=== PATIENT | male | born 1955 | race Caucasian/White ===

== ENCOUNTER 2018-04-29 15:49 | Inpatient (IN) ==
[2018-04-29 18:02] LABS: Baso % (Auto) 0.7 % (0.0-2.0); Eos # (Auto) 0.2 th/mm3 (0.0-0.4); Eos % (Auto) 2.8 % (0.0-4.0); Hematocrit 39.9 % (39.0-51.0); Lymph # (Auto) 1.9 th/mm3 (1.0-4.8); Lymph % (Auto) 29.1 % (9.0-44.0); Mean Corpuscular Hemoglobin 32.2 pg (27.0-34.0); Mean Corpuscular Volume 91.8 fL (80.0-100.0); Mean Platelet Volume 10.6 fL (7.0-11.0); Mono # (Auto) 0.7 th/mm3 (0.0-0.9); Mono % (Auto) 10.1 % (0.0-8.0); Neut # (Auto) 3.8 th/mm3 (1.8-7.7); Neut % (Auto) 57.3 % (16.0-70.0); Platelet Count 196 th/mm3 (150-450); Red Blood Count 4.35 mil/mm3 (4.50-5.90); Red Cell Distribution Width 15.6 % (11.6-17.2); White Blood Count 6.6 th/mm3 (4.0-11.0)
[2018-04-29 18:25] LABS: Alanine Aminotransferase 64 U/L (12-78); Albumin 4.1 g/dL (3.4-5.0); Anion Gap 7 meq/L (5-15); Aspartate Aminotransferase 81 U/L (15-37); Blood Urea Nitrogen 10 mg/dL (7-18); Calcium 8.1 mg/dL (8.5-10.1); Carbon Dioxide 30.8 meq/L (21.0-32.0); Chloride 97 meq/L (98-107); Glomerular Filtration Rate 49 mL/min (>89); Glucose,Random 93 mg/dL (74-106); Potassium 3.6 meq/L (3.5-5.1); Sodium 135 meq/L (136-145)
[2018-04-29 18:48] LABS: Alkaline Phosphatase 84 U/L (45-117)
[2018-04-29] MEDS ORDERED: Dexamethasone Inj 20 MG/5 ML Vial IV.PUSH ONE (22:24)
--- NOTE | 2018-04-29 22:28 | ED ---
HPI General Chief complaint: Psychiatric Symptoms Stated complaint: Psych Eval-Vol Time Seen by Provider: 04/29/18 22:06 History of Present Illness HPI narrative: Patient is a 63-year-old male presents emergency department with his girlfriend for of audio and visual shreya hallucinations. This been present for the past 4-6 weeks. Patient states he has always had an anxiety problem and states that when his girlfriend left for 2 weeks to deal with the of a family member and then extended that to 6 weeks he got a lot worse. His girlfriend states that she called him about a week ago and noted that he was "off" she flew back to find him in a very bizarre state and actually called 911 and they were unable to convince him to come to the hospital and instead he came of his own volition tonight. He denies any suicidal homicidal ideation. Is a very bizarre affect. He does endorse auditory and visual hallucinations. On further review of systems the patient endorses a 95 pound weight gain over the past 6 months. He states his family has a history of thyroid problems as well. Symptoms have been gradually worsening over the past 4-6 weeks. Onset (ago): week(s) Severity: moderate Pain Consistency: constant Relieving factors: none Exacerbating factors: none Associated symptoms: denies other symptoms Treatments prior to arrival: none Related Data Home Medications Medication Instructions Recorded Confirmed No Known Home Medications 04/29/18 04/29/18 Allergies Allergy/AdvReac Type Severity Reaction Status Date / Time No Known Allergies Allergy Uncoded 10/11/13 11:17 Review of Systems Except as stated in HPI: all other systems reviewed are negative [facility] Medical History Medical History Anxiety (Acute) CAD (coronary artery disease) (Acute) Deafness in right ear (Acute) Hypertension (Acute) Social History Social History Substance History: Active Abuse Smoking Status: Current every day smoker Tobacco Type: Cigarettes How Often Do You Have a Drink Containing Alcohol: Never Recent Travel in [facility] within the Last 8 Weeks: No Recent Out of Country Travel within the Last 8 Weeks: No Substance Abuse Detail Marijuana: Reason for Use: Socialization Immunization History Tetanus Immunization: Unsure Hx Influenza Vaccine This Season: No Exam Narrative Exam Narrative: GENERAL: Well-developed morbidly obese male, no obvious distress peer SKIN: Focused skin assessment warm/dry. HEAD: Atraumatic. Normocephalic. EYES: Pupils equal and round. No scleral icterus. No injection or drainage. ENT: No nasal bleeding or discharge. Mucous membranes pink and moist. NECK: Trachea midline. No JVD. CARDIOVASCULAR: Regular rate and rhythm. No murmur appreciated. RESPIRATORY: No accessory muscle use. Clear to auscultation. Breath sounds equal bilaterally. GASTROINTESTINAL: Abdomen soft, non-tender, nondistended. Hepatic and splenic margins not palpable. MUSCULOSKELETAL: No obvious deformities. No clubbing. No cyanosis. No edema. NEUROLOGICAL: Awake and alert. No obvious cranial nerve deficits. Motor grossly within normal limits. Mild slurred speech PSYCHIATRIC: Very bizarre affect, denies suicidal homicidal ideation, anxious mood. Course Initial Documented Vital Signs Temperature 98.1 F 04/29/18 16:00 Pulse Rate 52 L 04/29/18 16:00 Respiratory Rate 20 04/29/18 16:00 Blood Pressure 131/80 04/29/18 16:00 Pulse Oximetry 95 04/29/18 16:00 Last Documented Vital Signs Temperature 98.1 F 04/29/18 16:00 Pulse Rate 70 04/29/18 22:39 Respiratory Rate 18 04/29/18 22:39 Blood Pressure 161/96 H 04/29/18 22:39 Pulse Oximetry 96 04/29/18 22:39 Medical Decision Making [facility] Narrative Medical decision making narrative: Patient room to the emergency department, screening labs were sent from triage as part of psychiatric routine protocol medicine. Revealed a TSH greater than 100. 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 Free T3 and free T4 were drawn and sent, will be started on Decadron as well as IV thyroid medicine. Will be admitted to medicine. Final diagnosis myxedema Differential Diagnosis Differential Diagnosis: Schizophrenia, bipolar, myxedema coma, electrolyte abnormality, hyponatremia, Abby's disorder, pituitary adenoma Lab Data Result diagrams: 04/29/18 16:15 04/29/18 16:15 Lab Results 04/29/18 04/29/18 04/29/18 Range/Units 16:15 16:15 22:30 WBC 6.6 (4.0-11.0) th/mm3 RBC 4.35 L (4.50-5.90) mil/mm3 Hgb 14.0 (13.0-17.0) gm/dL Hct 39.9 (39.0-51.0) % MCV 91.8 (80.0-100.0) fL MCH 32.2 (27.0-34.0) pg MCHC 35.0 (32.0-36.0) % RDW 15.6 (11.6-17.2) % Plt Count 196 (150-450) th/mm3 MPV 10.6 (7.0-11.0) fL Neut % (Auto) 57.3 (16.0-70.0) % Lymph % (Auto) 29.1 (9.0-44.0) % Union % (Auto) 10.1 H (0.0-8.0) % Eos % (Auto) 2.8 (0.0-4.0) % Baso % (Auto) 0.7 (0.0-2.0) % Neut # (Auto) 3.8 (1.8-7.7) th/mm3 Lymph # (Auto) 1.9 (1.0-4.8) th/mm3 Union # (Auto) 0.7 (0.0-0.9) th/mm3 Eos # (Auto) 0.2 (0.0-0.4) th/mm3 Baso # (Auto) 0.0 (0.0-0.2) th/mm3 WBC Differential . Differential Comment Auto diff final Sodium 135 L (136-145) meq/L Potassium 3.6 (3.5-5.1) meq/L Chloride 97 L (98-107) meq/L Carbon Dioxide 30.8 (21.0-32.0) meq/L Anion Gap 7 (5-15) meq/L BUN 10 (7-18) mg/dL Creatinine 1.46 H (0.60-1.30) mg/dL Estimated GFR 49 L (>89) mL/min Random Glucose 93 (74-106) mg/dL Calcium 8.1 L (8.5-10.1) mg/dL Total Bilirubin 0.3 (0.2-1.0) mg/dL AST 81 H (15-37) U/L ALT 64 (12-78) U/L Alkaline Phosphatase 84 (45-117) U/L Total Protein 7.0 (6.4-8.2) g/dL Albumin 4.1 (3.4-5.0) g/dL TSH Greater than 100.000 H (0.358-3.740) uIU/mL Free T4 0.22 L (0.76-1.46) ng/dL Free T3 1.37 L (2.18-3.98) pg/mL Serum Alcohol Less than 3 (0-5) mg/dL Discharge Plan Discharge Disposition Patient Disposition: 30 Still Patient Discharge Details Diagnosis: Myxedema Physicians Team ED Provider: Humberto Pineda Primary Care Provider: Primary Care Adenike Barrios Attending Provider: Cinthya Royal Discharge Interventions Interventions: Vital Signs Last Done: 04/29/18 22:39 Status ED Status: Admitted Patient
[2018-04-29 23:44] LABS: Free T4 (Free Thyroxine) 0.22 ng/dL (0.76-1.46); Triiodothyronine (T3) Free 1.37 pg/mL (2.18-3.98)
[2018-04-30] MEDS ORDERED: Bisacodyl 10 MG Supp RECTAL PRN (01:44)
[2018-04-30] MEDS ORDERED: Acetaminophen 325 MG Tablet PO PRN (01:44)
--- NOTE | 2018-04-30 01:58 | P.HP ---
History of Present Illness Service: [facility] Primary Care Physician: No Primary Care Physician History of Present Illness: 63-year-old male presents to the emergency department for evaluation of audiovisual hallucinations. The hallucinations have been present for approximately 4-6 weeks. The patient's girlfriend reports that he has been "off " for the past couple of weeks and she found him in a very bizarre state when returning from a trip. 911 was called at that time however the patient refused to come for evaluation. Tonight, the patient comes of his own volition for further evaluation. He denies any pain. No chest pain or shortness of breath. No abdominal pain. No nausea/vomiting/diarrhea. Endorses a 95 pound weight gain over the past 6 months. No fevers/chills. No lateralizing signs/symptoms. Inpatient Certification: I certify that the inpatient services were ordered in accordance with Medicare regulations governing the order. This includes certification that hospital inpatient services are reasonable and necessary and in the case of services not specified as inpatient-only under 42 CFR 419.22(n), that they are appropriately provided as inpatient services in accordance to with the 2-midnight benchmark under 43 CFR 412.3(e) Estimated Total Length of Stay (Days): 3 Plans for Post Hospital Care: Home Review of Systems All other systems reviewed negative except as stated in HPI [facility] - History History Provided By: Patient, Significant Other - Medical History Medical History: Medical History (Last Updated 04/30/18 @ 01:52 by Cinthya Royal MD) Anxiety CAD (coronary artery disease) Deafness in right ear Hypertension Surgical history unknown - Family History Family History: Family History (Last Updated 04/30/18 @ 01:53 by Cinthya Royal MD) Other Family history unknown - Tobacco History Tobacco Use In Past 30 Days: Yes Smoking Status: Current every day smoker Tobacco Type: Cigarettes - Alcohol History How Often Do You Have a Drink Containing Alcohol: Never - Substance Use History Substance History: Active Abuse - Substance Use Type Marijuana Reason for Use: Socialization - Travel History Recent Travel in the [place] Within the Last 8 Weeks: No Recent Travel Out of the Country Within the Last 8 Weeks: No - Immunization History Tetanus Immunization: Unsure Hx Influenza Vaccine This Season: No Medications and Allergies Active Medications: Active Medications Acetaminophen (Tylenol) 650 mg PO Q4H PRN PRN Reason: Temp > 100.4 Al Hydroxide/Mg Hydroxide (Milk Of Magnesia Liq) 30 ml PO Q12H PRN PRN Reason: Mild Constipation Bisacodyl (Dulcolax Supp) 10 mg RECTAL DAILY PRN PRN Reason: SEVERE CONSITIPATION Heparin Sodium (Porcine) (Heparin Inj) 5,000 units SQ Q12H CHARLY Hydrocortisone Sodium Succinate (Solucortef Inj) 100 mg IV.PUSH Q6HR CHARLY Lactulose (Lactulose Liq) 30 ml PO DAILY PRN PRN Reason: SEVERE CONSITIPATION Levothyroxine Sodium (Synthroid Inj) 100 mcg IV.PUSH DAILY@0600 CHARLY Liothyronine Sodium (Cytomel) 25 mcg PO DAILY CHARLY Ondansetron HCl (Zofran Inj) 4 mg IV.PUSH Q6H PRN PRN Reason: NAUSEA OR VOMITING Senna/Docusate Sodium (Denisha-Colace) 1 tab PO BID CHARLY Sennosides (Senokot) 17.2 mg PO Q12H PRN PRN Reason: Moderate Constipation Temazepam (Restoril) 15 mg PO HS PRN PRN Reason: INSOMNIA Allergies Allergy/AdvReac Type Severity Reaction Status Date / Time No Known Allergies Allergy Uncoded 10/11/13 11:17 Home Medications Medication Instructions Recorded Confirmed Type No Known Home Medications 04/29/18 04/29/18 History Exam Vital signs: Vital Signs 04/29/18 16:00 04/29/18 22:39 Temperature 98.1 F Pulse Rate 52 L 70 Respiratory Rate 20 18 Blood Pressure 131/80 161/96 H Pulse Oximetry 95 96 Intake & Output 04/29/18 04/29/18 04/30/18 06:59 18:59 06:59 Weight 134.717 kg Narrative: Gen.: No acute distress Head: Normocephalic. Atraumatic. EENT: Pupils equal round and reactive to light. Nose without drainage. Airway intact. Throat without injection. Cardiovascular: Regular rate and rhythm. No murmurs, rubs or gallops. Respiratory: Lungs clear to auscultation bilaterally. No wheezes or rhonchi. Abdomen: Soft, nontender, nondistended. No peritoneal signs. Musculoskeletal: No gross deformities. No edema. Skin: No obvious rashes or erythema. Neuro: Sensory and motor grossly intact. Cranial nerves II through XII grossly intact. Results - Labs CBC & Chem 7: 04/29/18 16:15 04/29/18 16:15 Labs: Laboratory Results - last 24 hr 04/29/18 04/29/18 04/29/18 16:15 16:15 22:30 WBC 6.6 RBC 4.35 L Hgb 14.0 Hct 39.9 MCV 91.8 MCH 32.2 MCHC 35.0 RDW 15.6 Plt Count 196 MPV 10.6 Neut % (Auto) 57.3 Lymph % (Auto) 29.1 Jack % (Auto) 10.1 H Eos % (Auto) 2.8 Baso % (Auto) 0.7 Neut # (Auto) 3.8 Lymph # (Auto) 1.9 Jack # (Auto) 0.7 Eos # (Auto) 0.2 Baso # (Auto) 0.0 WBC Differential . Differential Comment Auto diff final Sodium 135 L Potassium 3.6 Chloride 97 L Carbon Dioxide 30.8 Anion Gap 7 BUN 10 Creatinine 1.46 H Estimated GFR 49 L Random Glucose 93 Calcium 8.1 L Total Bilirubin 0.3 AST 81 H ALT 64 Alkaline Phosphatase 84 Total Protein 7.0 Albumin 4.1 TSH Greater than 100.000 H Free T4 0.22 L Free T3 1.37 L Serum Alcohol Less than 3 Caprini VTE Risk Assessment Caprini VTE Risk Assessment: Moderate/High Risk (score >= 2) Caprini Risk Assessment Model: Point Value = 1 Point Value = 2 Point Value = 3 Point Value = 5 Age 41-60 Minor surgery BMI > 25 kg/m2 Swollen legs Varicose veins or History of unexplained or recurrent spontaneous Oral contraceptives or hormone replacement Sepsis (< 1 month) Serious lung disease, including pneumonia (< 1 month) Abnormal pulmonary function Acute myocardial infarction Congestive heart failure (< 1 month) History of inflammatory bowel disease Medical patient at bed rest Age 61-74 Arthroscopic surgery Major open surgery (> 45 min) Laparoscopic surgery (> 45 min) Malignancy Confined to bed (> 72 hours) Immobilizing plaster cast Central venous access Age >= 75 History of VTE Family history of VTE Factor V Leiden Prothrombin [id number] Lupus anticoagulant Anticardiolipin antibodies Elevated serum homocysteine Heparin-induced thrombocytopenia Other congenital or acquired thrombophilia Stroke (< 1 month) Elective arthroplasty Hip, pelvis, or leg fracture Acute spinal cord injury (< 1 month) Prophylaxis Regimen: Total Risk Factor Score Risk Level Prophylaxis Regimen 0-1 Low Early ambulation 2 Moderate Order ONE of the following: *Sequential Compression Device (SCD) *Heparin 5000 units SQ BID 3-4 Higher Order ONE of the following medications: *Heparin 5000 units SQ TID *Enoxaparin/Lovenox 40 mg SQ daily (WT < 150 kg, CrCl > 30 mL/min) *Enoxaparin/Lovenox 30 mg SQ daily (WT < 150 kg, CrCl > 10-29 mL/min) *Enoxaparin/Lovenox 30 mg SQ BID (WT < 150 kg, CrCl > 30 mL/min) AND/OR *Sequential Compression Device (SCD) 5 or more Highest Order ONE of the following medications: *Heparin 5000 units SQ TID (Preferred with Epidurals) *Enoxaparin/Lovenox 40 mg SQ daily (WT < 150 kg, CrCl > 30 mL/min) *Enoxaparin/Lovenox 30 mg SQ daily (WT < 150 kg, CrCl > 10-29 mL/min) *Enoxaparin/Lovenox 30 mg SQ BID (WT < 150 kg, CrCl > 30 mL/min) AND *Sequential Compression Device (SCD) Assessment and Plan - Plan Assessment/plan: 1. Hypothyroidism TSH greater than 100, free T4 0.22, free T3 1.37 IV steroids IV Synthroid Cytomel Consult endocrinology, appreciate recommendations 2. CAD/hypertension Continue home medications once reconciled FEN Heart healthy diet Electrolytes: Monitor and replete as needed Heparin
[2018-04-30] MEDS: Heparin - SQ 10,000 UNITS/ML Vial SQ SCH ×2 (02:59→14:49)
[2018-04-30] MEDS: Hydrocortisone Sod Succinate 100 MG Vial IV.PUSH SCH ×4 (05:58→17:44)
[2018-04-30] MEDS: Senna/Docusate Sodium 8.6/50 MG Tablet PO SCH ×2 (08:59→21:26)
[2018-04-30 11:56] LABS: Amphetamine Screen,Urine Neg (Neg); Barbiturate Screen,Urine Neg (Neg); Cannabinoid Screen,Urine Pos (Neg); Cocaine Screen,Urine Neg (Neg)
[2018-04-30 11:59] LABS: Opiate Screen,Urine Neg (Neg)
--- NOTE | 2018-04-30 17:40 | P.PNADD ---
Addendum to Inpatient Note Reason for Addendum: Additional Documentation Additional information: The patient says that his son is hypothyroid. He says that he has gained a lot of weight over the past few months. He feels better. He still has some confusion. He does endorse shortness of breath and says he smokes a lot of cigarettes. He is not on any inhaler regimen at home. Continue IV levothyroxine. Endocrinology consult is currently pending. Start standing nebulizers as well as Symbicort. Add physical therapy.
[2018-04-30] MEDS: Sod Chloride 0.9% Inj 1,000 ML IV.CONT SCH (17:49)
[2018-04-30] MEDS: Temazepam 15 MG Capsule PO PRN (21:26)
[2018-04-30] MEDS: Budesonide-Formoterol 80/4.5 MCG 6.9 GM Inhaler INH SCH (21:26)
[2018-05-01] MEDS: Hydrocortisone Sod Succinate 100 MG Vial IV.PUSH SCH ×4 (00:57→21:30)
[2018-05-01] MEDS: Heparin - SQ 10,000 UNITS/ML Vial SQ SCH ×2 (03:04→15:15)
[2018-05-01 07:11] LABS: Baso % (Auto) 0.2 % (0.0-2.0); Eos % (Auto) 0.1 % (0.0-4.0); Hematocrit 38.9 % (39.0-51.0); Hemoglobin 12.9 gm/dL (13.0-17.0); Lymph # (Auto) 1.6 th/mm3 (1.0-4.8); Lymph % (Auto) 14.5 % (9.0-44.0); Mean Corpuscular HGB Conc 33.3 % (32.0-36.0); Mean Corpuscular Hemoglobin 31.1 pg (27.0-34.0); Mean Corpuscular Volume 93.3 fL (80.0-100.0); Mean Platelet Volume 10.8 fL (7.0-11.0); Mono # (Auto) 1.1 th/mm3 (0.0-0.9); Mono % (Auto) 10.2 % (0.0-8.0); Neut # (Auto) 8.4 th/mm3 (1.8-7.7); Platelet Count 193 th/mm3 (150-450); Red Blood Count 4.16 mil/mm3 (4.50-5.90); Red Cell Distribution Width 15.7 % (11.6-17.2); White Blood Count 11.2 th/mm3 (4.0-11.0)
[2018-05-01 07:33] LABS: Calcium 8.8 mg/dL (8.5-10.1); Carbon Dioxide 26.9 meq/L (21.0-32.0); Potassium 3.6 meq/L (3.5-5.1)
[2018-05-01 07:43] LABS: Triiodothyronine (T3) Free 1.9 pg/mL (2.18-3.98)
[2018-05-01] MEDS: Sod Chloride 0.9% Inj 1,000 ML IV.CONT SCH ×2 (08:07→21:31)
--- NOTE | 2018-05-01 09:32 | P.PNIM ---
Subjective Interval history: The patient wanted to know when he would start to feel better. He endorsed significant anxiety and requested something to help him sleep. He says he has not slept well and only got about 5 hours of sleep over the past 5 days. Discussed with nursing. Physical Exam Vital signs: Vital Signs 04/30/18 12:00 04/30/18 16:00 04/30/18 16:51 Temperature 97.8 F 98.3 F Pulse Rate 83 81 81 Respiratory Rate 18 20 18 Blood Pressure 134/82 172/81 H Pulse Oximetry 90 L 90 L 04/30/18 20:00 04/30/18 20:52 04/30/18 20:53 Temperature 99.2 F Pulse Rate 95 H 88 Respiratory Rate 18 20 Blood Pressure 180/95 H Pulse Oximetry 93 L 92 L 05/01/18 00:00 05/01/18 01:30 05/01/18 04:00 Temperature 97.9 F 97.2 F L Pulse Rate 86 85 Respiratory Rate 18 15 18 Blood Pressure 136/71 149/55 H Pulse Oximetry 95 94 L 05/01/18 09:18 Temperature Pulse Rate 75 Respiratory Rate 14 Blood Pressure Pulse Oximetry 94 L Intake & Output 04/30/18 05/01/18 05/01/18 18:59 06:59 18:59 Intake Total 640 / 640 1525 / 1525 Balance 640 / 640 1525 / 1525 Weight 134.717 kg 134.71 kg Intake: IV 1000 / 1000 NS Inj 1,000 ML @ 100 mls/hr IV 1000 / 1000 .CONT .Q10H CHARLY Rx#:[id number] Oral 640 / 640 525 / 525 Other: # Voids 2 3 Date of Last Bowel Movement 04/29/18 # Bowel Movements 1 Weight On Admission 134.717 kg Narrative: Gen.: No acute distress Head: Normocephalic. Atraumatic. Facial swelling noted. EENT: Pupils equal round and reactive to light. Nose without drainage. Airway intact. Throat without injection. Cardiovascular: Regular rate and rhythm. No murmurs, rubs or gallops. Respiratory: + wheezes and rhonchi. Abdomen: Soft, nontender, nondistended. No peritoneal signs. Musculoskeletal: No gross deformities. No edema. Skin: No obvious rashes or erythema. Neuro: Sensory and motor grossly intact. Cranial nerves II through XII grossly intact. Slow speech. Results - Labs CBC & Chem 7: 05/01/18 05:50 05/01/18 05:50 Laboratory Results - last 24 hr 04/30/18 05/01/18 05/01/18 11:27 05:50 05:50 WBC 11.2 H RBC 4.16 L Hgb 12.9 L Hct 38.9 L MCV 93.3 MCH 31.1 MCHC 33.3 RDW 15.7 Plt Count 193 MPV 10.8 Neut % (Auto) 75.0 H Lymph % (Auto) 14.5 Craig % (Auto) 10.2 H Eos % (Auto) 0.1 Baso % (Auto) 0.2 Neut # (Auto) 8.4 H Lymph # (Auto) 1.6 Craig # (Auto) 1.1 H Eos # (Auto) 0.0 Baso # (Auto) 0.0 WBC Differential . Differential Comment Auto diff final Sodium 137 Potassium 3.6 Chloride 100 Carbon Dioxide 26.9 Anion Gap 10 BUN 19 H Creatinine 1.42 H Estimated GFR 50 L Random Glucose 110 H Calcium 8.8 Free T3 1.90 L Urine Opiates Screen Neg Ur Barbiturates Screen Neg Ur Amphetamines Screen Neg U Benzodiazepines Scrn Neg Urine Cocaine Screen Neg U Cannabinoids Screen Pos H Assessment and Plan - Plan Hypothyroidism/ Myxedema TSH greater than 100, free T4 0.22, free T3 1.37. - continue IV Synthroid at 100 mcg daily. - Cytomel 25 mcg po daily. - hydrocortisone 100 mg IV q8h. Wean down 05/02. - endocrinology consult pending. - PT/ST. Anxiety Pt endorses anxiety most of his life. - Ativan as needed. - Restoril for sleep. COPD Pt has been wheezing. - smoking cessation instruction. - nebs and oxygen as needed. - CXR pending. - IS. CAD Stable at this time. - continue ASA. PPx: Heparin
[2018-05-01] MEDS: Budesonide-Formoterol 80/4.5 MCG 6.9 GM Inhaler INH SCH ×2 (09:56→21:29)
[2018-05-01] MEDS: Senna/Docusate Sodium 8.6/50 MG Tablet PO SCH ×2 (09:57→21:29)
--- NOTE | 2018-05-01 10:22 | XR ---
EXAM DATE: 05/01/2018 10:13 AM EDT AGE/SEX: 63 years / Male INDICATIONS: Cough, shortness of breath and chest pain. CLINICAL DATA: This is the patient's initial encounter. Patient reports that signs and symptoms have been present for 3 days and indicates a pain score of 7/10. MEDICAL/SURGICAL HISTORY: Congestive heart failure. Hypertension. Coronary artery disease. Co ronary artery stent. COMPARISON: No prior exams available for comparison. FINDINGS: The lungs are clear without infiltrate, nodule, or mass. There is no appreciable pleural effusion for technique. Heart and mediastinum are unremarkable. CONCLUSION: No acute cardiopulmonary disease. Electronically signed by: Adiel Gentile MD 05/01/2018 10:21 AM EDT
[2018-05-01] MEDS: LORazepam 1 MG Tablet PO PRN (11:03)
--- NOTE | 2018-05-01 12:08 | P.CONEN ---
History of Present Illness Consult date: 05/01/18 Consult reason: other (Severe Hypothyroidism) History of Present Illness: Thisis a 63 years old gentleman with a past medical history of anxiety, depression, CAD and Tobacco abuse who was recently presented to the ER with auditory and visual hallucinations. His evaluation was consistent with severe hypothyroidism with a TSH of over 100 and a low T4. On talking to him he has a son who has a history of hypothyroidism. He is 1 of 4 children and has 4 step sisters of whom he does not know much. Otherwise he reports a history of periorbital puffiness of about 4&1/2 years which he had attributed to allergies , a 100 lbs weight gain in the last 6 months and worsening of his skin issues as well. He denies palpitations, admits a history of depression, has intermittent constipation alternating with diarrheal bowel movements and denies a history of cold intolerance. Review of Systems Constitutional: Reports lack of energy, Reports weight gain Eyes: Reports other Comments: periorbital puffiness Ears, Nose, Mouth, and Throat: Reports abnormal hearing (deafness in one ear) Comments: CAD status post stent placement Gastrointestinal: Reports constipation, Reports loose stools Musculoskeletal: Reports back pain Skin/Breast: Reports dry skin Neurologic: Reports abnormal hearing Psychiatric: Reports abnormal sleep pattern, Reports anxiety, Reports depression Endocrine: Reports other (See) Comments: See HPI PMFSH - History History Provided By: Patient - Medical History Medical History: Medical History (Last Reviewed 05/01/18 @ 11:54 by James Waite) Anxiety CAD (coronary artery disease) Deafness in right ear Hypertension Surgical history unknown - Family History Family History: Family History (Last Updated 04/30/18 @ 01:53 by Cinthya Royal MD) Other Family history unknown - Tobacco History Second Hand Smoke Exposure: Yes Tobacco Use In Past 30 Days: Yes Smoking Status: Heavy tobacco smoker Tobacco Type: Cigarettes - Alcohol History How Often Do You Have a Drink Containing Alcohol: Never - Substance Use History Substance History: Active Abuse - Substance Use Type Marijuana Status: Active Route Used: Inhalation Reason for Use: Feels Good - Travel History Recent Travel in the [place] Within the Last 8 Weeks: No Recent Travel Out of the Country Within the Last 8 Weeks: No - Immunization History Tetanus Immunization: Unsure Hx Influenza Vaccine This Season: No Medications and Allergies Active Medications: Active Medications Acetaminophen (Tylenol) 650 mg PO Q4H PRN PRN Reason: Temp > 100.4 Al Hydroxide/Mg Hydroxide (Milk Of Magnesia Liq) 30 ml PO Q12H PRN PRN Reason: Mild Constipation Albuterol (Duoneb Neb ([facility])) 1 ampul NEB Q6HR WHILE AWAKE NEB [facility] Last Admin: 05/01/18 09:13 Dose: 1 ampul Aspirin (Ecotrin) 81 mg PO DAILY [facility] Last Admin: 05/01/18 11:03 Dose: 81 mg Bisacodyl (Dulcolax Supp) 10 mg RECTAL DAILY PRN PRN Reason: SEVERE CONSITIPATION Budesonide/Formoterol Fumarate (Symbicort 80/4.5 Mcg Inh) 2 puff INH BID [facility] Last Admin: 05/01/18 09:56 Dose: 2 puff Heparin Sodium (Porcine) (Heparin Inj) 5,000 units SQ Q12H [facility] Last Admin: 05/01/18 03:04 Dose: 5,000 units Hydrocortisone Sodium Succinate (Solucortef Inj) 100 mg IV.PUSH Q8H [facility] Sodium Chloride (Ns Inj) 1,000 mls @ 100 mls/hr IV.CONT .Q10H [facility] Stop: 05/02/18 05:29 Last Admin: 05/01/18 08:07 Dose: 100 mls/hr Lactulose (Lactulose Liq) 30 ml PO DAILY PRN PRN Reason: SEVERE CONSITIPATION Levothyroxine Sodium (Synthroid Inj) 100 mcg IV.PUSH DAILY@0600 [facility] Last Admin: 05/01/18 11:01 Dose: Not Given Liothyronine Sodium (Cytomel) 25 mcg PO DAILY [facility] Last Admin: 05/01/18 09:57 Dose: 25 mcg Lorazepam (Ativan) 1 mg PO Q8H PRN PRN Reason: ANXIETY AND/OR AGITATION Last Admin: 05/01/18 11:03 Dose: 1 mg Ondansetron HCl (Zofran Inj) 4 mg IV.PUSH Q6H PRN PRN Reason: NAUSEA OR VOMITING Senna/Docusate Sodium (Denisha-Colace) 1 tab PO BID [facility] Last Admin: 05/01/18 09:57 Dose: 1 tab Sennosides (Senokot) 17.2 mg PO Q12H PRN PRN Reason: Moderate Constipation Temazepam (Restoril) 15 mg PO HS PRN PRN Reason: INSOMNIA Last Admin: 04/30/18 21:26 Dose: 15 mg Allergies Allergy/AdvReac Type Severity Reaction Status Date / Time pollen extracts Allergy Mild Congestion Verified 04/30/18 08:56 Home Medications Medication Instructions Recorded Confirmed Type aspirin [Aspirin Low Dose] 81 mg PO DAILY 04/30/18 04/30/18 History diphenhydramine HCl [Benadryl] 25 mg PO BID PRN 04/30/18 04/30/18 History potassium 99 mg PO DAILY 04/30/18 04/30/18 History Exam Vital signs: Vital Signs 04/30/18 12:00 04/30/18 16:00 04/30/18 16:51 Temperature 97.8 F 98.3 F Pulse Rate 83 81 81 Respiratory Rate 18 20 18 Blood Pressure 134/82 172/81 H Pulse Oximetry 90 L 90 L 04/30/18 20:00 04/30/18 20:52 04/30/18 20:53 Temperature 99.2 F Pulse Rate 95 H 88 Respiratory Rate 18 20 Blood Pressure 180/95 H Pulse Oximetry 93 L 92 L 05/01/18 00:00 05/01/18 01:30 05/01/18 04:00 Temperature 97.9 F 97.2 F L Pulse Rate 86 85 Respiratory Rate 18 15 18 Blood Pressure 136/71 149/55 H Pulse Oximetry 95 94 L 05/01/18 08:00 05/01/18 09:18 Temperature 97.5 F L Pulse Rate 73 75 Respiratory Rate 18 14 Blood Pressure 160/77 H Pulse Oximetry 91 L 94 L Intake & Output 04/30/18 05/01/18 05/01/18 18:59 06:59 18:59 Intake Total 640 / 640 1525 / 1525 Balance 640 / 640 1525 / 1525 Weight 134.717 kg 134.71 kg Intake: IV 1000 / 1000 NS Inj 1,000 ML @ 100 mls/hr IV 1000 / 1000 .CONT .Q10H [facility] Rx#:[id number] Oral 640 / 640 525 / 525 Other: # Voids 2 3 Date of Last Bowel Movement 04/29/18 # Bowel Movements 1 Weight On Admission 134.717 kg - Constitutional no acute distress, morbidly obese - Routine HEENT Exam Head: Present: normocephalic, atraumatic Eye: Present: EOMI, periorbital swelling - Routine Neck Exam Present: supple Comments: Thyroid is difficult to palpate - Routine Respiratory Exam Present: rhonchi (expiratory mild in both lung tam) Results - Labs Result Diagrams: 05/01/18 05:50 05/01/18 05:50 Abnormal lab results 04/30/18 05/01/18 05/01/18 Range/Units 11:27 05:50 05:50 WBC 11.2 H (4.0-11.0) th/mm3 RBC 4.16 L (4.50-5.90) mil/mm3 Hgb 12.9 L (13.0-17.0) gm/dL Hct 38.9 L (39.0-51.0) % Neut % (Auto) 75.0 H (16.0-70.0) % Blount % (Auto) 10.2 H (0.0-8.0) % Neut # (Auto) 8.4 H (1.8-7.7) th/mm3 Blount # (Auto) 1.1 H (0.0-0.9) th/mm3 BUN 19 H (7-18) mg/dL Creatinine 1.42 H (0.60-1.30) mg/dL Estimated GFR 50 L (>89) mL/min Random Glucose 110 H (74-106) mg/dL Free T3 1.90 L (2.18-3.98) pg/mL U Cannabinoids Screen Pos H (Neg) Diabetes panel 05/01/18 Range/Units 05:50 Sodium 137 (136-145) meq/L Potassium 3.6 (3.5-5.1) meq/L Chloride 100 (98-107) meq/L Carbon Dioxide 26.9 (21.0-32.0) meq/L BUN 19 H (7-18) mg/dL Creatinine 1.42 H (0.60-1.30) mg/dL Calcium 8.8 (8.5-10.1) mg/dL Calcium panel 05/01/18 Range/Units 05:50 Calcium 8.8 (8.5-10.1) mg/dL Pituitary panel 05/01/18 Range/Units 05:50 Sodium 137 (136-145) meq/L Potassium 3.6 (3.5-5.1) meq/L Chloride 100 (98-107) meq/L Carbon Dioxide 26.9 (21.0-32.0) meq/L BUN 19 H (7-18) mg/dL Creatinine 1.42 H (0.60-1.30) mg/dL Calcium 8.8 (8.5-10.1) mg/dL Adrenal panel 05/01/18 Range/Units 05:50 Sodium 137 (136-145) meq/L Potassium 3.6 (3.5-5.1) meq/L Chloride 100 (98-107) meq/L Carbon Dioxide 26.9 (21.0-32.0) meq/L BUN 19 H (7-18) mg/dL Creatinine 1.42 H (0.60-1.30) mg/dL Calcium 8.8 (8.5-10.1) mg/dL - Diagnostic results Imaging: Impressions Chest X-Ray 05/01/18 00:00 CONCLUSION: No acute cardiopulmonary disease. Assessment and Plan - Assessment (1) Hypothyroidism (acquired) Code(s): E03.9 - Hypothyroidism, unspecified Status: Acute Plan: In summary this is a 63 years old gentleman with severe hypothyroidism and a history of both CAD status post a stent placement and smoking. In his case recommend conservative titration and intentional underdosing and gradual titration due to his history of CAD. Currently have discussed the need for him to stop smoking. His elizabeth for medical treatment at this point seems to be his anxiety (for which he continues to smoke) and his lack of access the health care. For now recommend to increase his dose of Levothyroxine to 175 mcg PO QD starting tomorrow and to increase his IV titration to 250 mcg QAM x 3 days. Recommend to follow free T4 QPM. In his case fine tuning of all other medications may need to be revisited once he is euthyroid seen the expected change in the half life of meds as his metabolism recovers and changes. I have taken the liberty to write the above orders. Thank you for allowing me to participate in the medical management of this interesting and kind gentleman. (2) CAD in [place] artery Code(s): I25.10 - Atherosclerotic heart disease of [place] coronary artery without angina pectoris Status: Acute (3) Tobacco abuse Code(s): Z72.0 - Tobacco use Status: Acute
[2018-05-01] MEDS ORDERED: Hydrocortisone Sod Succinate 100 MG Vial IV.PUSH SCH (14:00)
[2018-05-01] MEDS: Hypromellose 0.3% Opth Gel 10 GM Bottle EACH EYE PRN (18:32)
[2018-05-01] MEDS: Temazepam 15 MG Capsule PO PRN (21:42)
[2018-05-02] MEDS: Sod Chloride 0.9% Inj 1,000 ML IV.CONT SCH (03:36)
[2018-05-02] MEDS: Heparin - SQ 10,000 UNITS/ML Vial SQ SCH ×2 (03:38→14:27)
[2018-05-02] MEDS: LORazepam 1 MG Tablet PO PRN ×2 (03:50→14:27)
[2018-05-02] MEDS ORDERED: Metoprolol Tartrate 50 MG Tablet PO ONE (03:53)
[2018-05-02] MEDS: Levothyroxine 75 MCG Tablet PO SCH (06:01)
[2018-05-02] MEDS: Hydrocortisone Sod Succinate 100 MG Vial IV.PUSH SCH ×3 (06:02→21:14)
[2018-05-02 08:09] LABS: Hematocrit 34.5 % (39.0-51.0); Hemoglobin 11.5 gm/dL (13.0-17.0); Mean Corpuscular HGB Conc 33.4 % (32.0-36.0); Mean Corpuscular Hemoglobin 31.6 pg (27.0-34.0); Mean Corpuscular Volume 94.6 fL (80.0-100.0); Mean Platelet Volume 10.3 fL (7.0-11.0); Platelet Count 177 th/mm3 (150-450); Red Blood Count 3.64 mil/mm3 (4.50-5.90); Red Cell Distribution Width 15.8 % (11.6-17.2); White Blood Count 10.5 th/mm3 (4.0-11.0)
[2018-05-02 08:26] LABS: Calcium 8.5 mg/dL (8.5-10.1); Carbon Dioxide 27.9 meq/L (21.0-32.0); Potassium 3.8 meq/L (3.5-5.1)
[2018-05-02 08:31] LABS: Free T4 (Free Thyroxine) 0.76 ng/dL (0.76-1.46)
[2018-05-02] MEDS: Senna/Docusate Sodium 8.6/50 MG Tablet PO SCH ×2 (09:34→20:29)
[2018-05-02] MEDS: Budesonide-Formoterol 80/4.5 MCG 6.9 GM Inhaler INH SCH ×2 (09:36→20:30)
--- NOTE | 2018-05-02 14:32 | P.PNIM ---
Subjective Interval history: 63-year-old male presents to the emergency department for evaluation of audiovisual hallucinations. The hallucinations have been present for approximately 4-6 weeks. The patient's girlfriend reports that he has been "off " for the past couple of weeks and she found him in a very bizarre state when returning from a trip. 911 was called at that time however the patient refused to come for evaluation. Tonight, the patient comes of his own volition for further evaluation. He denies any pain. No chest pain or shortness of breath. No abdominal pain. No nausea/vomiting/diarrhea. Endorses a 95 pound weight gain over the past 6 months. No fevers/chills. No lateralizing signs/symptoms. 7-20 The patient wanted to know when he would start to feel better. He endorsed significant anxiety and requested something to help him sleep. He says he has not slept well and only got about 5 hours of sleep over the past 5 days. Discussed with nursing. 7 patient has been seen by endocrinology. Medications have been adjusted. Patient is still "off". Patient will need to be on medications for his thyroid for life. Have explained this to the patient Patient has strange behavior We will consult psychiatry Physical Exam Vital signs: Vital Signs 05/01/18 16:00 05/01/18 20:56 05/01/18 22:06 Temperature 98.1 F 97.8 F Pulse Rate 77 79 83 Respiratory Rate 18 20 16 Blood Pressure 178/85 H 142/81 H Pulse Oximetry 91 L 91 L 05/02/18 00:00 05/02/18 04:00 05/02/18 08:00 Temperature 98.7 F 97.5 F L 98.6 F Pulse Rate 80 77 68 Respiratory Rate 20 18 20 Blood Pressure 163/77 H 184/80 H 180/97 H Pulse Oximetry 94 L 93 L 92 L 05/02/18 08:10 05/02/18 08:12 Temperature Pulse Rate 69 Respiratory Rate 18 Blood Pressure Pulse Oximetry 92 L Intake & Output 05/01/18 05/02/18 05/02/18 18:59 06:59 18:59 Intake Total 1480 / 1480 1480 / 1480 Output Total 850 / 850 Balance 1480 / 1480 630 / 630 Intake: IV 1000 / 1000 1000 / 1000 NS Inj 1,000 ML @ 100 mls/hr IV 1000 / 1000 1000 / 1000 .CONT .Q10H [facility] Rx#:[id number] Oral 480 / 480 480 / 480 Output: Urine 850 / 850 Other: # Voids 3 Date of Last Bowel Movement 04/29/18 Narrative: Gen.: No acute distress Head: Normocephalic. Atraumatic. Facial swelling noted. EENT: Pupils equal round and reactive to light. Nose without drainage. Airway intact. Throat without injection. Cardiovascular: Regular rate and rhythm. No murmurs, rubs or gallops. Respiratory: + wheezes and rhonchi. Abdomen: Soft, nontender, nondistended. No peritoneal signs. Musculoskeletal: No gross deformities. No edema. Skin: No obvious rashes or erythema. Neuro: Sensory and motor grossly intact. Cranial nerves II through XII grossly intact. Slow speech. Insight and judgment is limited Mood and behavior is not appropriate Results - Labs CBC & Chem 7: 05/02/18 07:17 05/02/18 07:17 Laboratory Results - last 24 hr 05/02/18 05/02/18 07:17 07:17 WBC 10.5 RBC 3.64 L Hgb 11.5 L Hct 34.5 L MCV 94.6 MCH 31.6 MCHC 33.4 RDW 15.8 Plt Count 177 MPV 10.3 Sodium 139 Potassium 3.8 Chloride 103 Carbon Dioxide 27.9 Anion Gap 8 BUN 18 Creatinine 1.35 H Estimated GFR 53 L Random Glucose 110 H Calcium 8.5 Free T4 0.76 - Imaging Chest X-Ray 05/01/18 00:00 CONCLUSION: No acute cardiopulmonary disease. Assessment and Plan - Plan Hypothyroidism/ Myxedema TSH greater than 100, free T4 0.22, free T3 1.37. - continue IV Synthroid per endocrine orders 250 MCG's IV daily for 3 days total Synthroid 75 MCG's p.o. daily - Cytomel 25 mcg po daily. - hydrocortisone 100 mg IV q8h. Wean down 05/02. - endocrinology consult pending. - PT/ST. Anxiety Pt endorses anxiety most of his life. - Ativan as needed. - Restoril for sleep. COPD Pt has been wheezing. - smoking cessation instruction. - nebs and oxygen as needed. - CXR pending. - IS. CAD Stable at this time. - continue ASA. PPx: Heparin Code Status: Full code Discussed Condition With: RN and patient and case management Discharge Planning: May need a psychiatric consult
[2018-05-02] MEDS: hydrALAZINE 50 MG Tablet PO SCH (18:06)
[2018-05-02] MEDS: Temazepam 15 MG Capsule PO PRN (21:14)
[2018-05-03] MEDS ORDERED: Haloperidol Inj 5 MG/ML Ampul IM ONE (00:05)
[2018-05-03 00:20] LABS: ABG Base Excess 2.3 mmol/L (-2-2); ABG PCO2 60 mmHg (38-42); ABG PO2 70 mmHg (61-120)
--- NOTE | 2018-05-03 00:57 | XR ---
EXAM DATE: 05/03/2018 12:49 AM EDT AGE/SEX: 63 years / Male INDICATIONS: Shortness of breath. CLINICAL DATA: This is the patient's subsequent encounter. Patient reports that signs and symptoms h ave been present for 3 days and indicates a pain score of 7/10. MEDICAL/SURGICAL HISTORY: . Congestive heart failure. Hypertension. Coronary artery disease. Coronary artery stent. COMPARISON: [facility] [place] 1[place] SINGLE [place], 05/01/2018. . FINDINGS: Single AP view of the chest. Moderate severity diffuse interstitial opacity of the lungs bilaterally. Cardiac silhouette is within normal limits. No evidence of pleural effusion or pneumothorax. CONCLUSION: New bilateral diffuse interstitial pulmonary opacity suggesting new pulmonary edema. Electronically signed by: Joseluis Gonzalez MD 05/03/2018 12:55 AM EDT
--- NOTE | 2018-05-03 01:23 | P.PNADD ---
Addendum to Inpatient Note Reason for Addendum: Additional Documentation Additional information: S: Resident team paged for a Halicat at [phone]. Upon arrival, nursing staff is reporting increased respiratory distress, uncontrolled hypertension, and worsening altered mental status. Nursing staff reports that patient has been progressively more confused today. Has had some visual hallucinations during this hospitalization but is now incoherent and no longer oriented. Also note that his oxygen requirement has increased and his respiratory exam has worsened. Patient received 0.2 mg p.o. clonidine 3 hours prior and his blood pressure is now in the 200s over 100s. Bedside Accu-Chek of 170 O: VS: BP 207/113, HR 93, O2 98% on 10L nonrebreather mask, respiratory rate in the 20s General: Obese male lying in bed with nonrebreather mask in place although is occasionally trying to take the mask off, occasionally mumbling incoherent words /phrases, does not respond to questions appropriately Cardiovascular: Difficult to auscultate due to significant respiratory wheezing , regular rate with no murmurs appreciated Respiratory: Diffuse inspiratory and expiratory wheezing bilateral lung tam, poor air movement bilaterally, no crackles appreciated Abdomen: Protuberant abdomen is distended, no guarding or apparent tenderness to palpation A/P: 63-year-old male with history of COPD, hypothyroidism and anxiety admitted for auditory and visual hallucinations being evaluated for worsening mental status, uncontrolled blood pressure and respiratory distress. Primary team aware and placing orders. -ABG significant for a pH of 7.30, PCO2 of 60, bicarb 28 with a oxygen saturation 90% on 10 L simple mask -Ordering chest x-ray, BiPAP and transfer to ICU -Blood pressure 207/113. Had p.o. clonidine 3 hours prior. Ordering one time Vasotec IV. May need IV push antihypertensives or possibly a drip, transferring to ICU -Ordering CBC, CMP, EKG, troponins -Will defer to the primary team/workup results on consulting boot liner maker at this time
[2018-05-03 01:54] LABS: Alanine Aminotransferase 251 U/L (12-78); Albumin 4.3 g/dL (3.4-5.0); Anion Gap 5 meq/L (5-15); Aspartate Aminotransferase 210 U/L (15-37); Blood Urea Nitrogen 18 mg/dL (7-18); Calcium 8.4 mg/dL (8.5-10.1); Chloride 103 meq/L (98-107); Glomerular Filtration Rate 58 mL/min (>89); Glucose,Random 141 mg/dL (74-106); Phosphorus 3.5 mg/dL (2.5-4.9); Potassium 3.8 meq/L (3.5-5.1); Sodium 137 meq/L (136-145)
[2018-05-03 01:58] LABS: Alkaline Phosphatase 95 U/L (45-117); Total Protein 7.4 g/dL (6.4-8.2); Troponin I 0.04 ng/mL (0.02-0.05)
[2018-05-03 02:43] LABS: Bilirubin,Urine Negative (Negative); Clarity,Urine Clear (Clear); Color,Urine Yellow (Yellw/Straw); Glucose,Urine (UA) 50 mg/dL (Negative); Leukocyte Esterase,Urine Negative (Negative); Mucus,Urine Few /lpf (Occasional); Nitrite,Urine Negative (Negative); Squamous Epithelial Cell,Urine <1 /hpf (0-5)
[2018-05-03 03:05] LABS: ABG Base Excess 4.9 mmol/L (-2-2); ABG PCO2 58 mmHg (38-42); ABG PO2 93 mmHg (61-120)
[2018-05-03] MEDS: Heparin - SQ 10,000 UNITS/ML Vial SQ SCH ×2 (03:21→14:35)
[2018-05-03 05:07] LABS: Baso % (Auto) 0.2 % (0.0-2.0); Hematocrit 36.3 % (39.0-51.0); Lymph # (Auto) 1.2 th/mm3 (1.0-4.8); Mean Corpuscular Hemoglobin 31.1 pg (27.0-34.0); Mean Corpuscular Volume 94.3 fL (80.0-100.0); Mean Platelet Volume 10.5 fL (7.0-11.0); Mono % (Auto) 8.5 % (0.0-8.0); Neut # (Auto) 9.5 th/mm3 (1.8-7.7); Neut % (Auto) 81.3 % (16.0-70.0); Platelet Count 167 th/mm3 (150-450); Red Blood Count 3.85 mil/mm3 (4.50-5.90); Red Cell Distribution Width 16.2 % (11.6-17.2); White Blood Count 11.7 th/mm3 (4.0-11.0)
[2018-05-03 05:36] LABS: Alanine Aminotransferase 239 U/L (12-78); Albumin 4.3 g/dL (3.4-5.0); Anion Gap 5 meq/L (5-15); Aspartate Aminotransferase 180 U/L (15-37); Blood Urea Nitrogen 18 mg/dL (7-18); Calcium 8.2 mg/dL (8.5-10.1); Chloride 102 meq/L (98-107); Cholesterol 247 mg/dL (120-200); Glomerular Filtration Rate 58 mL/min (>89); Glucose,Random 124 mg/dL (74-106); Magnesium 2.6 mg/dL (1.5-2.5); Potassium 3.6 meq/L (3.5-5.1); Sodium 138 meq/L (136-145); Triglycerides 396 mg/dL (42-150)
[2018-05-03 05:39] LABS: Alkaline Phosphatase 92 U/L (45-117); Chol/HDL Ratio 8.15 Ratio; Free T4 (Free Thyroxine) 0.56 ng/dL (0.76-1.46); HDL Cholesterol 30.3 mg/dL (40.0-60.0); LDL Cholesterol,Calculated 138 mg/dL (0-99); Total Protein 7.3 g/dL (6.4-8.2)
--- NOTE | 2018-05-03 05:44 | P.CONCC ---
History of Present Illness Service: Critical care medicine Consult date: 05/03/18 Requesting Physician: Carolyne Whalen Reason for Consult: Respiratory distress Primary Care Provider: No Primary Care Physician History of Present Illness: 63-year-old male who was admitted to [facility] on 04/29/18 for myxedema coma and is now transferred to [facility] after [facility] For respiratory distress. He has a history of coronary artery disease with prior stent 2013, hypertension, COPD. He presented with a 4-6 week history of audiovisual hallucinations. He had experienced 95 pounds of weight gain over the past 6 months and had periorbital edema. TSH was greater than 100. He has been evaluated by endocrinology and is on Synthroid IV 250 mcg daily. He has had intermittent agitation. He has intermittently received Ativan 1 mg but his last dose was 05/02 at 1427 and he reportedly has had paradoxical agitation with benzodiazepines. Tonight he became extremely agitated with systolic blood pressures in the 200s/110. He developed respiratory distress and hypoxia. Chest x-ray shows pulmonary edema. He received Lasix 20 mg IV per the hospitalist and was placed on BiPAP. His blood pressure is coming down with systolic blood pressure in the 150s. I am also applying nitroglycerin paste. His ABG demonstrates acute hypercapnic respiratory failure with pH of 7.30/ PaCO2 of 60/PO2 of 70. He has bilateral wheezing, is protecting his airway. Review of Systems unobtainable due to mental condition [facility] - History History Provided By: Patient, Medical Record - Medical History Medical History: Medical History (Last Reviewed 05/01/18 @ 11:54 by James Waite) Anxiety CAD (coronary artery disease) Deafness in right ear Hypertension Surgical history unknown - Family History Family History: Family History (Last Updated 04/30/18 @ 01:53 by Cinthya Royal MD) Other Family history unknown - Tobacco History Second Hand Smoke Exposure: Yes Tobacco Use In Past 30 Days: Yes Smoking Status: Heavy tobacco smoker Tobacco Type: Cigarettes - Alcohol History How Often Do You Have a Drink Containing Alcohol: Never - Substance Use History Substance History: Active Abuse (Marijuana) - Substance Use Type Marijuana Status: Active Route Used: Inhalation Reason for Use: Feels Good - Travel History Recent Travel in the [place] Within the Last 8 Weeks: No Recent Travel Out of the Country Within the Last 8 Weeks: No - Immunization History Tetanus Immunization: Unsure Hx Influenza Vaccine This Season: No Medications and Allergies Active Medications: Active Medications Acetaminophen (Tylenol) 650 mg PO Q4H PRN PRN Reason: Temp > 100.4 Al Hydroxide/Mg Hydroxide (Milk Of Magnesia Liq) 30 ml PO Q12H PRN PRN Reason: Mild Constipation Albuterol (Duoneb Neb (Lauren)) 1 ampul NEB Q4HR NEB [facility] Last Admin: 05/03/18 04:08 Dose: 1 ampul Albuterol (Albuterol Neb (Prn)) 2.5 mg NEB Q2HR NEB PRN PRN Reason: WHEEZING Artificial Tears (Genteal Severe Dry Eye Relief 0.3% Opth Gel) 1 drops EACH EYE Q4H PRN PRN Reason: DISCOMFORT Last Admin: 05/01/18 18:32 Dose: 1 drops Aspirin (Ecotrin) 81 mg PO DAILY [facility] Last Admin: 05/02/18 09:35 Dose: 81 mg Bisacodyl (Dulcolax Supp) 10 mg RECTAL DAILY PRN PRN Reason: SEVERE CONSITIPATION Budesonide/Formoterol Fumarate (Symbicort 80/4.5 Mcg Inh) 2 puff INH BID [facility] Last Admin: 05/02/18 20:30 Dose: 2 puff Clonidine HCl (Catapres) 0.2 mg PO Q6H PRN PRN Reason: HYPERTENSION Last Admin: 05/02/18 21:14 Dose: 0.2 mg Heparin Sodium (Porcine) (Heparin Inj) 5,000 units SQ Q12H [facility] Last Admin: 05/03/18 03:21 Dose: 5,000 units Hydralazine HCl (Apresoline) 50 mg PO TID [facility] Last Admin: 05/02/18 18:06 Dose: 50 mg Hydrocortisone Sodium Succinate (Solucortef Inj) 100 mg IV.PUSH Q8H [facility] Last Admin: 05/02/18 21:14 Dose: 100 mg Lactulose (Lactulose Liq) 30 ml PO DAILY PRN PRN Reason: SEVERE CONSITIPATION Levothyroxine Sodium (Synthroid Inj) 250 mcg IV.PUSH DAILY@0600 [facility] Stop: 05/04/18 06:01 Last Admin: 05/02/18 06:02 Dose: 250 mcg Levothyroxine Sodium (Synthroid) 75 mcg PO DAILY@0600 [facility] Last Admin: 05/02/18 06:01 Dose: 75 mcg Liothyronine Sodium (Cytomel) 25 mcg PO DAILY [facility] Last Admin: 05/02/18 09:34 Dose: 25 mcg Lorazepam (Ativan) 1 mg PO Q8H PRN PRN Reason: ANXIETY AND/OR AGITATION Last Admin: 05/02/18 14:27 Dose: 1 mg Nitroglycerin (Nitro-Bid 2% Oint) 1 inch TOPICAL Q6H [facility] Last Admin: 05/03/18 03:21 Dose: 1 inch Ondansetron HCl (Zofran Inj) 4 mg IV.PUSH Q6H PRN PRN Reason: NAUSEA OR VOMITING Senna/Docusate Sodium (Denisha-Colace) 1 tab PO BID [facility] Last Admin: 05/02/18 20:29 Dose: Not Given Sennosides (Senokot) 17.2 mg PO Q12H PRN PRN Reason: Moderate Constipation Temazepam (Restoril) 15 mg PO HS PRN PRN Reason: INSOMNIA Last Admin: 05/02/18 21:14 Dose: 15 mg Ziprasidone (Geodon Inj) 10 mg IM ONCE ONE Stop: 05/03/18 05:45 Allergies Allergy/AdvReac Type Severity Reaction Status Date / Time pollen extracts Allergy Mild Congestion Verified 04/30/18 08:56 Home Medications Medication Instructions Recorded Confirmed Type aspirin [Aspirin Low Dose] 81 mg PO DAILY 04/30/18 04/30/18 History diphenhydramine HCl [Benadryl] 25 mg PO BID PRN 04/30/18 04/30/18 History potassium 99 mg PO DAILY 04/30/18 04/30/18 History Physical Exam Vital signs: Vital Signs 05/02/18 08:00 05/02/18 08:10 05/02/18 08:12 Temperature 98.6 F Pulse Rate 68 69 Respiratory Rate 20 18 Blood Pressure 180/97 H Pulse Oximetry 92 L 92 L 05/02/18 12:00 05/02/18 16:00 05/02/18 17:40 Temperature 97.5 F L 97.4 F L Pulse Rate 72 86 82 Respiratory Rate 20 20 22 Blood Pressure 150/67 H 228/107 H 183/103 H Pulse Oximetry 92 L 96 05/02/18 19:16 05/02/18 19:17 05/02/18 20:00 Temperature 98.1 F Pulse Rate 82 82 Respiratory Rate 20 20 Blood Pressure 181/88 H Pulse Oximetry 93 L 93 L 05/02/18 23:52 05/03/18 00:17 05/03/18 00:18 Temperature Pulse Rate 92 H 86 86 Respiratory Rate 22 24 22 Blood Pressure 204/108 H 207/117 H 207/113 H Pulse Oximetry 87 L 97 97 05/03/18 00:31 05/03/18 00:34 05/03/18 00:53 Temperature 97.5 F L Pulse Rate 90 90 Respiratory Rate 28 H 22 Blood Pressure 197/110 H Pulse Oximetry 95 87 L 05/03/18 01:00 05/03/18 04:00 05/03/18 04:08 Temperature 98.4 F Pulse Rate 58 L 92 H Respiratory Rate 12 22 Blood Pressure 129/69 Pulse Oximetry 98 98 Intake & Output 05/02/18 05/02/18 05/03/18 06:59 18:59 06:59 Intake Total 1480 / 1480 1200 / 1200 Output Total 850 / 850 Balance 630 / 630 1200 / 1200 Intake: IV 1000 / 1000 NS Inj 1,000 ML @ 100 mls/hr IV 1000 / 1000 .CONT .Q10H [facility] Rx#:[id number] Oral 480 / 480 1200 / 1200 Output: Urine 850 / 850 Other: # Voids 10 Date of Last Bowel Movement 04/29/18 05/02/18 # Bowel Movements 1 Narrative: GENERAL: Overweight well-developed male who is sitting up in ISC bed. BiPAP mask is in place. SKIN: Warm and dry, adequately perfused.. No rash HEAD: Atraumatic. Normocephalic. EYES: Pupils equal and round, 3 mm and reactive bilaterally. There is some facial and periorbital edema. ENT: BiPAP mask is in place NECK: Trachea midline. No JVD appreciated, neck is thick.. CARDIOVASCULAR: Regular rate and rhythm, sinus rhythm on the monitor with rate in the 80. No murmurs rubs or gallops appreciated. Cardiac contractility is grossly normal on bedside ultrasound. Small pericardial effusion, no tamponade. RESPIRATORY: On BiPAP 16/5, respiratory rate in the low 20s. No accessory muscle use. Bilateral expiratory wheeze. GASTROINTESTINAL: Abdomen protuberant and obese, soft, non-tender, nondistended. Bowel sounds present. MUSCULOSKELETAL: Extremities without clubbing, cyanosis, or edema. No obvious deformities. NEUROLOGICAL: Opens eyes to voice and gentle sternal rub, moves extremities spontaneously. Mumbles some incomprehensible words with BiPAP mask in place. Does not follow commands - Urinary Catheter Management Indwelling Urethral Catheter Cath placed during this visit: yes Reason for continuing: Hourly intake/output Insertion date: 05/03/18 Insertion time: 02:00 Assessment and Plan - Assessment and Plan Plan: NEURO: Marijuana abuse Acute agitated delirium Acute encephalopathy, multifactorial also secondary to hypercapnia This agitated delirium presentation can be seen with severe hypothyroidism. He is now more lethargic but is also hypercapneic. Check ammonia level, check CT brain for completeness when respiratory status stabilizes. RESP: Acute hypoxemic and hypercapnic respiratory failure on BiPAP Acute COPD exacerbation Pulmonary edema Chest x-ray with pulmonary edema. Will continue diuresis. Added NTG paste. DuoNeb every 4 hours. Albuterol every 2 hours as needed. We will continue BiPAP for now. Follow followed up ABG, titrated inspiratory pressure to 18/5.. Wean BiPAP as tolerated. His lethargy does seem to be improving on BiPAP, getting more agitated again. Continue Symbicort 80/4.52 puffs inhaled twice daily. CV: Coronary artery disease with prior stent Pulmonary edema Hypertension There is potential for ischemia during treatment with IV Synthroid. I do not see any ischemic changes on EKG currently. He does not complain of any chest pain His initial troponin is 0.04. Will do serial EKGs and trend to prep troponin. Will check formal echo. Continue aspirin 81 mg daily. Continue hydralazine 50 mg p.o. 3 times daily. Continue nitroglycerin as per above. Diuresing with Lasix. With the hydralazine he may need a concomitant loop diuretic to prevent pulmonary edema. Could consider alternate agent for hypertension management. Will use labetalol prn if needed. Had prior NSTEMI with cardiac cath 09/29/13 with bare metal stent to 2nd OM by Dr. Vale. (20% L main, 30% mid LAD, 30% ostial OM lesion) GI: Cardiac diet when mental status improves FEN/RENAL: Sorensen catheter has been inserted. Monitor intake and output closely. Monitor electrolytes. Replace electrolytes as indicated. ID: Afebrile. Monitor for signs and symptoms of infection. HEME: Monitor CBC ENDO: Severe hypothyroidism with myxedema coma On Synthroid 250 mcg IV daily for 3 doses per endocrinology. Synthroid 75 mcg p.o. daily. Hydrocortisone 100 mg IV every 8 hours PROPH: SCDs and heparin 5000 subcu every 12 for DVT prophylaxis. Famotidine for stress ulcer prophylaxis ACCESS: Peripheral IV providing adequate access at this time. Patient woke up and was conversant, removed Bipap mask. Became agitated and combative, scratched a nurse. Will use geodon 10 mg IM if needed for chemical restraint for patient and staff safety. Full code Patient is critically ill with acute respiratory failure requiring titration of BiPAP, and initiation of nebs, diuresis to prevent worsening hypoxia and potential intubation. He will need to remain in [facility] for monitoring airway protection and management of respiratory failure. Critical care time 50 minutes exclusive of separately billable procedures.
[2018-05-03] MEDS: Hydrocortisone Sod Succinate 100 MG Vial IV.PUSH SCH ×3 (06:42→21:54)
[2018-05-03] MEDS: Levothyroxine 75 MCG Tablet PO SCH (06:43)
--- NOTE | 2018-05-03 09:28 | P.CONCC ---
History of Present Illness Primary Care Provider: No Primary Care Physician PMF - History History Provided By: Patient, Medical Record - Medical History Medical History: Medical History (Last Reviewed 05/01/18 @ 11:54 by James Waite) Anxiety CAD (coronary artery disease) Deafness in right ear Hypertension Surgical history unknown - Family History Family History: Family History (Last Updated 04/30/18 @ 01:53 by Cinthya Royal MD) Other Family history unknown - Tobacco History Second Hand Smoke Exposure: Yes Tobacco Use In Past 30 Days: Yes Smoking Status: Heavy tobacco smoker Tobacco Type: Cigarettes - Alcohol History How Often Do You Have a Drink Containing Alcohol: Never - Substance Use History Substance History: Active Abuse (Marijuana) - Substance Use Type Marijuana Status: Active Route Used: Inhalation Reason for Use: Feels Good - Travel History Recent Travel in the [place] Within the Last 8 Weeks: No Recent Travel Out of the Country Within the Last 8 Weeks: No - Immunization History Tetanus Immunization: Unsure Hx Influenza Vaccine This Season: No Medications and Allergies Active Medications: Active Medications Acetaminophen (Tylenol) 650 mg PO Q4H PRN PRN Reason: Temp > 100.4 Al Hydroxide/Mg Hydroxide (Milk Of Sabrina Sher) 30 ml PO Q12H PRN PRN Reason: Mild Constipation Albuterol (Duoneb Neb (Lauren)) 1 ampul NEB Q4HR NEB [facility] Last Admin: 05/03/18 07:33 Dose: 1 ampul Albuterol (Albuterol Neb (Prn)) 2.5 mg NEB Q2HR NEB PRN PRN Reason: WHEEZING Artificial Tears (Genteal Severe Dry Eye Relief 0.3% Opth Gel) 1 drops EACH EYE Q4H PRN PRN Reason: DISCOMFORT Last Admin: 05/01/18 18:32 Dose: 1 drops Aspirin (Ecotrin) 81 mg PO DAILY [facility] Last Admin: 05/02/18 09:35 Dose: 81 mg Bisacodyl (Dulcolax Supp) 10 mg RECTAL DAILY PRN PRN Reason: SEVERE CONSITIPATION Budesonide/Formoterol Fumarate (Symbicort 80/4.5 Mcg Inh) 2 puff INH BID [facility] Last Admin: 05/02/18 20:30 Dose: 2 puff Clonidine HCl (Catapres) 0.2 mg PO Q6H PRN PRN Reason: HYPERTENSION Last Admin: 05/02/18 21:14 Dose: 0.2 mg Famotidine (Pepcid Pf Inj) 20 mg IV.PUSH Q12HR [facility] Furosemide (Lasix Inj) 40 mg IV.PUSH ONCE ONE Stop: 05/03/18 10:01 Heparin Sodium (Porcine) (Heparin Inj) 5,000 units SQ Q12H [facility] Last Admin: 05/03/18 03:21 Dose: 5,000 units Hydralazine HCl (Apresoline) 50 mg PO TID [facility] Last Admin: 05/02/18 18:06 Dose: 50 mg Hydrocortisone Sodium Succinate (Solucortef Inj) 100 mg IV.PUSH Q8H [facility] Last Admin: 05/03/18 06:42 Dose: 100 mg Labetalol HCl (Trandate Inj) 20 mg IV.PUSH Q4H PRN PRN Reason: HYPERTENSION SBP>160 Lactulose (Lactulose Liq) 30 ml PO DAILY PRN PRN Reason: SEVERE CONSITIPATION Levothyroxine Sodium (Synthroid Inj) 250 mcg IV.PUSH DAILY@0600 [facility] Stop: 05/04/18 06:01 Last Admin: 05/03/18 06:45 Dose: 250 mcg Levothyroxine Sodium (Synthroid) 75 mcg PO DAILY@0600 [facility] Last Admin: 05/03/18 06:43 Dose: Not Given Liothyronine Sodium (Cytomel) 25 mcg PO DAILY [facility] Last Admin: 05/02/18 09:34 Dose: 25 mcg Lorazepam (Ativan) 1 mg PO Q8H PRN PRN Reason: ANXIETY AND/OR AGITATION Last Admin: 05/02/18 14:27 Dose: 1 mg Nitroglycerin (Nitro-Bid 2% Oint) 1 inch TOPICAL Q6H [facility] Last Admin: 05/03/18 03:21 Dose: 1 inch Ondansetron HCl (Zofran Inj) 4 mg IV.PUSH Q6H PRN PRN Reason: NAUSEA OR VOMITING Senna/Docusate Sodium (Denisha-Colace) 1 tab PO BID [facility] Last Admin: 05/02/18 20:29 Dose: Not Given Sennosides (Senokot) 17.2 mg PO Q12H PRN PRN Reason: Moderate Constipation Temazepam (Restoril) 15 mg PO HS PRN PRN Reason: INSOMNIA Last Admin: 05/02/18 21:14 Dose: 15 mg Allergies Allergy/AdvReac Type Severity Reaction Status Date / Time pollen extracts Allergy Mild Congestion Verified 04/30/18 08:56 Home Medications Medication Instructions Recorded Confirmed Type aspirin [Aspirin Low Dose] 81 mg PO DAILY 04/30/18 04/30/18 History diphenhydramine HCl [Benadryl] 25 mg PO BID PRN 04/30/18 04/30/18 History potassium 99 mg PO DAILY 04/30/18 04/30/18 History Physical Exam Vital signs: Vital Signs 05/02/18 12:00 05/02/18 16:00 05/02/18 17:40 Temperature 97.5 F L 97.4 F L Pulse Rate 72 86 82 Respiratory Rate 20 20 22 Blood Pressure 150/67 H 228/107 H 183/103 H Pulse Oximetry 92 L 96 05/02/18 19:16 05/02/18 19:17 05/02/18 20:00 Temperature 98.1 F Pulse Rate 82 82 Respiratory Rate 20 20 Blood Pressure 181/88 H Pulse Oximetry 93 L 93 L 05/02/18 23:52 05/03/18 00:17 05/03/18 00:18 Temperature Pulse Rate 92 H 86 86 Respiratory Rate 22 24 22 Blood Pressure 204/108 H 207/117 H 207/113 H Pulse Oximetry 87 L 97 97 05/03/18 00:31 05/03/18 00:34 05/03/18 00:53 Temperature 97.5 F L Pulse Rate 90 90 Respiratory Rate 28 H 22 Blood Pressure 197/110 H Pulse Oximetry 95 87 L 05/03/18 01:00 05/03/18 04:00 05/03/18 04:08 Temperature 98.4 F Pulse Rate 58 L 92 H Respiratory Rate 12 22 Blood Pressure 129/69 Pulse Oximetry 98 98 05/03/18 07:35 05/03/18 08:00 Temperature 99.2 F Pulse Rate 67 83 Respiratory Rate 16 Blood Pressure 190/94 H Pulse Oximetry 96 94 L Intake & Output 05/02/18 05/03/18 05/03/18 18:59 06:59 18:59 Intake Total 1200 / 1200 Output Total 1949 Balance 1200 / 1200 -1949 Weight 123.9 kg Intake: Oral 1200 / 1200 Output: Urine Amount (Catheter) 1949 Indwelling Urethral Catheter 1949 Other: # Voids 10 Date of Last Bowel Movement 05/02/18 05/02/18 # Bowel Movements 1 - Urinary Catheter Management Indwelling Urethral Catheter Cath placed during this visit: yes Reason for continuing: Hourly intake/output Insertion date: 05/03/18 Insertion time: 02:00 Assessment and Plan - Assessment and Plan Plan: NEURO: Marijuana abuse Acute agitated delirium Acute encephalopathy, multifactorial also secondary to hypercapnia This agitated delirium presentation can be seen with severe hypothyroidism. He is now more lethargic but is also hypercapneic. Check ammonia level, check CT brain for completeness when respiratory status stabilizes. RESP: Acute hypoxemic and hypercapnic respiratory failure on BiPAP Acute COPD exacerbation Pulmonary edema Chest x-ray with pulmonary edema. Will continue diuresis. Added NTG paste. DuoNeb every 4 hours. Albuterol every 2 hours as needed. We will continue BiPAP for now. Follow followed up ABG, titrated inspiratory pressure to 18/5.. Wean BiPAP as tolerated. His lethargy does seem to be improving on BiPAP, getting more agitated again. Continue Symbicort 80/4.52 puffs inhaled twice daily. CV: Coronary artery disease with prior stent Pulmonary edema Hypertension There is potential for ischemia during treatment with IV Synthroid. I do not see any ischemic changes on EKG currently. He does not complain of any chest pain His initial troponin is 0.04. Will do serial EKGs and trend to prep troponin. Will check formal echo. Continue aspirin 81 mg daily. Continue hydralazine 50 mg p.o. 3 times daily. Continue nitroglycerin as per above. Diuresing with Lasix. With the hydralazine he may need a concomitant loop diuretic to prevent pulmonary edema. Could consider alternate agent for hypertension management. Will use labetalol prn if needed. Had prior NSTEMI and cardiac cath 09/29/13 with bare metal stent to [facility] OM by Dr. Vale. GI: Cardiac diet when mental status improves FEN/RENAL: Sorensen catheter has been inserted. Monitor intake and output closely. Monitor electrolytes. Replace electrolytes as indicated. ID: Afebrile. Monitor for signs and symptoms of infection. HEME: Monitor CBC ENDO: Severe hypothyroidism with myxedema coma On Synthroid 250 mcg IV daily for 3 doses per endocrinology. Synthroid 75 mcg p.o. daily. Hydrocortisone 100 mg IV every 8 hours PROPH: SCDs and heparin 5000 subcu every 12 for DVT prophylaxis. Famotidine for stress ulcer prophylaxis ACCESS: Peripheral IV providing adequate access at this time. Patient woke up and was conversant, removed Bipap mask. Became agitated and combative, scratched a nurse. Will use geodon 10 mg IM if needed for chemical restraint for patient and staff safety. Full code Patient is critically ill with acute respiratory failure requiring titration of BiPAP, and initiation of nebs, diuresis to prevent worsening hypoxia and potential intubation. He will need to remain in [facility] for monitoring airway protection and management of respiratory failure. Critical care time 50 minutes exclusive of separately billable procedures.
--- NOTE | 2018-05-03 10:04 | P.CONPSY ---
Provisional Diagnosis Admission Date: April 30, 2018 00:15 Madill I.: 1. Delirium due to general medical condition Madill II.: Deferred History of Present Illness Service: Psychiatry Consult date: 05/03/18 Requesting Physician: Lance Roldan Reason for Consult: "Bizarre behaviors" Primary Care Provider: No Primary Care Physician History of Present Illness: Mr. Baptiste is a 63-year-old male with no known past psychiatric history besides mild anxiety who presented initially to the ED with complaints of audiovisual hallucinations. He was found to be experiencing myxedema and was admitted to the medical floor for management of this issue. Reviewing the electronic medical record, I see no previous psychiatric contact within our system. Patient seen and examined. Chart reviewed. I note that the patient had an episode of respiratory distress overnight and was transferred following a HaliCAT to the ICU. Case discussed with nursing staff who reports that the patient has largely been somnolent since arriving in the ICU. He did awaken briefly in the middle of the night as staff were trying to provide care and almost struck staff while in a confused state. He is now in soft wrist restraints. On my examination today, the patient's speech is fairly garbled him a somewhat limiting the interview. He tells me that he has been experiencing "different levels" of hallucinations. He seems to say that he has been seeing people and makes specific allusion to the movie The 6th Sense. He says that these figures speak to him but denies any command auditory hallucinations to hurt self or others. He denies any suicidal or homicidal ideation. Mood is "normally good." He says that his sleep has been quite poor and "that is how it gets you." He is apparently referring to hypothyroidism in this case, although he also does seem a little bit paranoid on exam. No other mood or psychotic symptoms. Remainder of the psychiatric ROS is negative. No acute physical complaints. Past psychiatric history: The patient reports only a history of anxiety, "nothing I could not handle." He denies any history of outpatient or inpatient psychiatric care. He denies a history of suicide attempts. Family history: The patient denies any family history of mental illness. Chemical dependency history: The patient denies any abuse of drugs or alcohol. Social history: The patient lives with his girlfriend. His report is somewhat convoluted, but it seems that the patient, his from whom he is , his girlfriend and his girlfriend's all reside together. He has a son aged 45. Social history is somewhat limited because of the patient's acute confusional state. Mental status testing: Registration 3 out of 3 and recall 3 out of 3 at 3 minutes. He is oriented to person and date but not to location. He spells WORLD backwards as WLROLOWL. He is overinclusive on vigilance A. Review of Systems All other systems reviewed negative except as stated in HPI (Limitation: Poor historian) [facility] - History History Provided By: Patient, Medical Record - Medical History Medical History: Medical History (Last Reviewed 05/01/18 @ 11:54 by James Waite) Anxiety CAD (coronary artery disease) Deafness in right ear Hypertension Surgical history unknown - Family History Family History: Family History (Last Updated 04/30/18 @ 01:53 by Cinthya Royal MD) Other Family history unknown - Tobacco History Second Hand Smoke Exposure: Yes Tobacco Use In Past 30 Days: Yes Smoking Status: Heavy tobacco smoker Tobacco Type: Cigarettes - Alcohol History How Often Do You Have a Drink Containing Alcohol: Never - Substance Use History Substance History: Active Abuse (Marijuana) - Substance Use Type Marijuana Status: Active Route Used: Inhalation Reason for Use: Feels Good - Travel History Recent Travel in the [place] Within the Last 8 Weeks: No Recent Travel Out of the Country Within the Last 8 Weeks: No - Immunization History Tetanus Immunization: Unsure Hx Influenza Vaccine This Season: No Medications and Allergies Active Medications: Active Medications Acetaminophen (Tylenol) 650 mg PO Q4H PRN PRN Reason: Temp > 100.4 Al Hydroxide/Mg Hydroxide (Milk Of Sabrina Sher) 30 ml PO Q12H PRN PRN Reason: Mild Constipation Albuterol (Duoneb Neb (Lauren)) 1 ampul NEB Q4HR NEB LAUREN Last Admin: 05/03/18 07:33 Dose: 1 ampul Albuterol (Albuterol Neb (Prn)) 2.5 mg NEB Q2HR NEB PRN PRN Reason: WHEEZING Artificial Tears (Genteal Severe Dry Eye Relief 0.3% Opth Gel) 1 drops EACH EYE Q4H PRN PRN Reason: DISCOMFORT Last Admin: 05/01/18 18:32 Dose: 1 drops Aspirin (Ecotrin) 81 mg PO DAILY [facility] Last Admin: 05/02/18 09:35 Dose: 81 mg Bisacodyl (Dulcolax Supp) 10 mg RECTAL DAILY PRN PRN Reason: SEVERE CONSITIPATION Budesonide/Formoterol Fumarate (Symbicort 80/4.5 Mcg Inh) 2 puff INH BID [facility] Last Admin: 05/02/18 20:30 Dose: 2 puff Clonidine HCl (Catapres) 0.2 mg PO Q6H PRN PRN Reason: HYPERTENSION Last Admin: 05/02/18 21:14 Dose: 0.2 mg Famotidine (Pepcid Pf Inj) 20 mg IV.PUSH Q12HR [facility] Heparin Sodium (Porcine) (Heparin Inj) 5,000 units SQ Q12H [facility] Last Admin: 05/03/18 03:21 Dose: 5,000 units Hydralazine HCl (Apresoline) 50 mg PO TID [facility] Last Admin: 05/02/18 18:06 Dose: 50 mg Hydrocortisone Sodium Succinate (Solucortef Inj) 100 mg IV.PUSH Q8H [facility] Last Admin: 05/03/18 06:42 Dose: 100 mg Labetalol HCl (Trandate Inj) 20 mg IV.PUSH Q4H PRN PRN Reason: HYPERTENSION SBP>160 Lactulose (Lactulose Liq) 30 ml PO DAILY PRN PRN Reason: SEVERE CONSITIPATION Levothyroxine Sodium (Synthroid Inj) 250 mcg IV.PUSH DAILY@0600 [facility] Stop: 05/04/18 06:01 Last Admin: 05/03/18 06:45 Dose: 250 mcg Levothyroxine Sodium (Synthroid) 75 mcg PO DAILY@0600 [facility] Last Admin: 05/03/18 06:43 Dose: Not Given Liothyronine Sodium (Cytomel) 25 mcg PO DAILY [facility] Last Admin: 05/02/18 09:34 Dose: 25 mcg Lorazepam (Ativan) 1 mg PO Q8H PRN PRN Reason: ANXIETY AND/OR AGITATION Last Admin: 05/02/18 14:27 Dose: 1 mg Nitroglycerin (Nitro-Bid 2% Oint) 1 inch TOPICAL Q6H [facility] Last Admin: 05/03/18 03:21 Dose: 1 inch Ondansetron HCl (Zofran Inj) 4 mg IV.PUSH Q6H PRN PRN Reason: NAUSEA OR VOMITING Senna/Docusate Sodium (Denisha-Colace) 1 tab PO BID [facility]UREN Last Admin: 05/02/18 20:29 Dose: Not Given Sennosides (Senokot) 17.2 mg PO Q12H PRN PRN Reason: Moderate Constipation Temazepam (Restoril) 15 mg PO HS PRN PRN Reason: INSOMNIA Last Admin: 05/02/18 21:14 Dose: 15 mg Allergies Allergy/AdvReac Type Severity Reaction Status Date / Time pollen extracts Allergy Mild Congestion Verified 04/30/18 08:56 Home Medications Medication Instructions Recorded Confirmed Type aspirin [Aspirin Low Dose] 81 mg PO DAILY 04/30/18 04/30/18 History diphenhydramine HCl [Benadryl] 25 mg PO BID PRN 04/30/18 04/30/18 History potassium 99 mg PO DAILY 04/30/18 04/30/18 History Exam Vital signs: Vital Signs 05/02/18 12:00 05/02/18 16:00 05/02/18 17:40 Temperature 97.5 F L 97.4 F L Pulse Rate 72 86 82 Respiratory Rate 20 20 22 Blood Pressure 150/67 H 228/107 H 183/103 H Pulse Oximetry 92 L 96 05/02/18 19:16 05/02/18 19:17 05/02/18 20:00 Temperature 98.1 F Pulse Rate 82 82 Respiratory Rate 20 20 Blood Pressure 181/88 H Pulse Oximetry 93 L 93 L 05/02/18 23:52 05/03/18 00:17 05/03/18 00:18 Temperature Pulse Rate 92 H 86 86 Respiratory Rate 22 24 22 Blood Pressure 204/108 H 207/117 H 207/113 H Pulse Oximetry 87 L 97 97 05/03/18 00:31 05/03/18 00:34 05/03/18 00:53 Temperature 97.5 F L Pulse Rate 90 90 Respiratory Rate 28 H 22 Blood Pressure 197/110 H Pulse Oximetry 95 87 L 05/03/18 01:00 05/03/18 04:00 05/03/18 04:08 Temperature 98.4 F Pulse Rate 58 L 92 H Respiratory Rate 12 22 Blood Pressure 129/69 Pulse Oximetry 98 98 05/03/18 07:35 05/03/18 08:00 Temperature 99.2 F Pulse Rate 67 83 Respiratory Rate 16 Blood Pressure 190/94 H Pulse Oximetry 96 94 L Intake & Output 05/02/18 05/03/18 05/03/18 18:59 06:59 18:59 Intake Total 1200 / 1200 Output Total 1949 Balance 1200 / 1200 -1949 Weight 123.9 kg Intake: Oral 1200 / 1200 Output: Urine Amount (Catheter) 1949 Indwelling Urethral Catheter 1949 Other: # Voids 10 Date of Last Bowel Movement 05/02/18 05/02/18 # Bowel Movements 1 Narrative: Physical examination completed by primary team. On my examination today, the patient appears to be in no acute physical distress. No motor abnormalities noted. He is in soft wrist restraints. Labs and vital signs reviewed: Laboratory Tests 04/29/18 04/30/18 05/03/18 16:15 11:27 04:29 WBC 11.7 H Hgb 12.0 L Plt Count 167 Sodium Potassium Chloride Carbon Dioxide BUN Creatinine Estimated GFR AST ALT Alkaline Phosphatase Troponin I Free T4 U Cannabinoids Screen Pos H Serum Alcohol Less than 3 05/03/18 05/03/18 04:29 04:29 WBC Hgb Plt Count Sodium 138 Potassium 3.6 Chloride 102 Carbon Dioxide 31.0 BUN 18 Creatinine 1.26 Estimated GFR 58 L AST 180 H ALT 239 H Alkaline Phosphatase 92 Troponin I 0.05 Free T4 0.56 L U Cannabinoids Screen Serum Alcohol Chest X-Ray 05/01/18 00:00 CONCLUSION: No acute cardiopulmonary disease. Chest X-Ray 05/03/18 00:26 CONCLUSION: New bilateral diffuse interstitial pulmonary opacity suggesting new pulmonary edema. No head imaging on file. Mental Status Examination Appearance: Disheveled Consciousness: Alert Orientation: Person, Date/Time Motor Activity: Other (No motor abnormalities noted) Speech: Other (Garbled) Language: Adequate Fund of Knowledge: Adequate Attention and Concentration: Easily distracted Memory: Unremarkable Mood: Anxious Affect: Anxious Thought Process & Associations: Circumstantial Thought Content: Hallucinations Hallucination Type: Auditory, Visual Delusion Type: Paranoid (Mild) Suicidal Ideation: No Suicidal Plan: No Suicidal Intention: No Homicidal Ideation: No Homicidal Plan: No Homicidal Intention: No Insight: Poor Judgment: Poor Assessment and Plan - Assessment (1) Delirium due to another medical condition Code(s): F05 - Delirium due to known physiological condition Status: Acute (2) Myxedema Code(s): E03.9 - Hypothyroidism, unspecified Status: Acute - Plan Plan: 63-year-old male with psychiatric history as detailed above who is presently admitted to the ICU following an episode of respiratory distress in the setting of myxedema. Psychiatry is consulted for bizarre behavior. On my examination today, the patient describes audiovisual hallucinations and exhibits some associated paranoia. He denies any suicidal or homicidal ideation. I suspect that the patient is experiencing delirium related to his myxedema and associated medical issues, but the differential diagnosis should also include Asad's encephalopathy, psychosis due to another general medical condition, neurocognitive disorder with psychotic symptoms, or primary psychotic illness ( although this seems less likely in this patient with no previous history of psychosis). I recommend the following: --Consider working up patient's psychotic symptoms by obtaining MRI brain w/wo contrast (with contrast only if renal function allows), HIV, RPR, B12, thiamine/ RBC folate, COLLEEN, sed rate. I would also check anti-TPO and anti-TG antibodies to screen for possible Asad's encephalopathy. Consider neuropsych eval to further delineate cognitive deficits. --Could consider empiric management of AVH and paranoia by adding Zyprexa 2.5mg qHS; this will also hopefully help with sleep. This could be titrated to 5mg qHS in 2-3 days if well tolerated and if symptoms persist. QTc wnl. --General delirium management recommendations including: Limiting use of anticholinergics, antihistamines, benzodiazepines and opiates as all can worsen mental status; frequent reorientation and early mobilization; limiting use of restraints and preferring a sitter for behavioral redirection if needed; aggressive management of any urinary retention or constipation. --My suspicion is that patient's psychiatric symptoms are secondary to a general medical condition and not to a primary psychiatric illness. Patient is not presently suicidal or homicidal. He does not presently meet criteria for inpatient psychiatric admission, although psychiatric symptoms along with medical symptoms may make home-going discharge plan unwise. Consider OT consult and further PT assessment to clarify patient's discharge needs. Case discussed with RN. Thank you very much for this consultation. I will plan to follow up later in the week or sooner as needed. Please call or page [phone] during daylight hours with questions. Justification for Continued Inpatient Stay: Per primary team.
[2018-05-03] MEDS: hydrALAZINE 50 MG Tablet PO SCH ×3 (10:11→17:06)
[2018-05-03] MEDS: Senna/Docusate Sodium 8.6/50 MG Tablet PO SCH ×2 (10:13→21:53)
[2018-05-03] MEDS: Labetalol HCl Inj 100 MG/20 ML Vial IV.PUSH PRN (10:16)
[2018-05-03 11:58] LABS: Hemoglobin A1c 6.2 % (4.3-6.0)
--- NOTE | 2018-05-03 15:40 | ECG ---
Date Performed: 05/03/2018 Time Performed: 01:09:46 PTAGE: 63 years EKG: Sinus rhythm . Normal ECG Compared to PREVIOUS TRACING , heart rate is faster, otherwise no significant change. PREVIOUS TRACIN 09/19/2013 15.09.18 DOCTOR: Sachin Simms Interpretating Date/Time 05/03/2018 15:39:38
--- NOTE | 2018-05-03 15:53 | ECHRPT ---
Indication: CARDIOMYOPATHY CONCLUSIONS Normal left ventricular size. Mild concentric left ventricular hypertrophy. The left ventricular systolic function is severely reduced with an estimated ejection fraction in th e range of 30-35%. There is diffuse global hypokinesis with distinct regional wall motion abnormalities. The left atrial size is mildly dilated. Qyil-[id number]-rlbwaecy mitral valve regurgitation. There is trace tricuspid valve regurgitation. Cannot exclude trivial pericardial effusion. BP: / HR: Rhythm: Sinus MEASUREMENTS (Male / Female) Normal Values Technical Quality:Fair 2D ECHO LV Diastolic Diameter PLAX 5.7 cm 4.2 - 5.9 / 3.9 - 5.3 cm LV Systolic Diameter PLAX 5.0 cm IVS Diastolic Thickness 1.1 cm 0.6 - 1.0 / 0.6 - 0.9 cm LVPW Diastolic Thickness 1.1 cm 0.6 - 1.0 / 0.6 - 0.9 cm LV Relative Wall Thickness 0.4 RV Internal Dim ED PLAX 3.3 cm LVOT Diameter 2.2 cm Aortic Root Diameter 3.3 cm LA Systolic Diameter LX 4.3 cm 3.0 - 4.0 / 2.7 - 3.8 cm M-MODE AV Cusp Separation MM 2.0 cm DOPPLER AV Peak Velocity 103.0 cm/s AV Peak Gradient 4.2 mmHg AV Mean Gradient 3.0 mmHg AV Velocity Time Integral 21.6 cm LVOT Peak Velocity 51.1 cm/s LVOT Peak Gradient 1.0 mmHg LVOT Velocity Time Integral 11.8 cm AV Area Cont Eq vti 2.1 cm AV Area Cont Eq pk 1.9 cm Mitral E Point Velocity 78.5 cm/s Mitral A Point Velocity 46.4 cm/s Mitral E to A Ratio 1.7 LV E' Lateral Velocity 12.2 cm/s Mitral E to LV E' Lateral Ratio 6.4 LV E' Septal Velocity 6.7 cm/s Mitral E to LV E' Septal Ratio 11.7 PV Peak Velocity 36.1 cm/s PV Peak Gradient 0.5 mmHg FINDINGS LEFT VENTRICLE Normal left ventricular size. Mild concentric left ventricular hypertrophy. The left ventricular systolic function is severely reduced with an estimated ejection fraction in th e range of 30-35%. There is diffuse global hypokinesis with distinct regional wall motion abnormalities. RIGHT VENTRICLE Normal right ventricular size and systolic function. LEFT ATRIUM The left atrial size is mildly dilated. RIGHT ATRIUM The right atrial size is normal. ATRIAL SEPTUM Normal atrial septal thickness without atrial level shunting by limited color doppler interrogation. AORTA The aortic root and proximal ascending aorta are normal in size on limited imaging. MITRAL VALVE [id number] mitral valve regurgitation. AORTIC VALVE Trileaflet aortic valve. No aortic valve stenosis or regurgitation. TRICUSPID VALVE There is trace tricuspid valve regurgitation. PULMONARY VALVE No pulmonary valve regurgitation or stenosis. VESSELS The inferior vena cava was not well visualized. PERICARDIUM Cannot exclude trivial pericardial effusion. Сергей Kerr MD (Electronically Signed) Final Date:03 May 2018 15:51
--- NOTE | 2018-05-03 16:51 | MR ---
EXAM DATE: 05/03/2018 4:28 PM EDT AGE/SEX: 63 years / Male INDICATIONS: Confusion. Lethargy and hallucinations. CLINICAL DATA: This is the patient's initial encounter. Patient reports that signs and symptoms have been present for 4 - 6 days and indicates a pain score of 0/10. MEDICAL/SURGICAL HISTORY: Cardiovascular disease. Chronic obstructive pulmonary disease. Hype rtension. Hypothyroid. . Cardiac cath with stent 2012 COMPARISON: No prior exams available for comparison. TECHNIQUE: Multiplanar, multisequence examination of the brain was performed without contrast. FINDINGS: There is mild to moderate signal abnormality periventricular white matter probably chronic ischemic c hanges. No mass effect or midline shift. No recent infarct identified. Remote lacunar infarct right p eriventricular white matter. Exam degraded by motion. CONCLUSION: 1. No acute findings. Chronic white matter ischemic changes. No recent infarct or mass effect. Small lacunar infarct on the right. Electronically signed by: Cheko Castro MD 05/03/2018 4:49 PM EDT
--- NOTE | 2018-05-03 18:09 | MG ---
cc: Ashwin Benavides MD ELECTROENCEPHALOGRAM RECORD NUMBER: [id number]. DESCRIPTION: 3-4 Hz activity, 10-20 microvolts with delta activity suggestive of sleep state. He is also apparently on BiPAP. During arousal, background incremented up to 5-6 Hz, 10-30 microvolts followed by generalized slowing again. Good EEG variability and reactivity. Multiple arousals during sleep. Occasionally muscle tension artifact. Limited photic stimulation, premature contractions on single lead EKG. INTERPRETATION: Mild encephalopathy in sleep state. Clinical correlation. MD KARTHIKEYAN Pickering/CHEPE , 05:50 PM , 06:08 PM
[2018-05-03] MEDS: Temazepam 15 MG Capsule PO PRN (21:53)
[2018-05-03] MEDS: Budesonide-Formoterol 80/4.5 MCG 6.9 GM Inhaler INH SCH (21:53)
[2018-05-03] MEDS: Famotidine PF Inj 20 MG/2 ML Vial IV.PUSH SCH (21:54)
[2018-05-03] MEDS: LORazepam 1 MG Tablet PO PRN (23:22)
[2018-05-04] MEDS: Budesonide-Formoterol 80/4.5 MCG 6.9 GM Inhaler INH SCH ×3 (00:49→20:47)
[2018-05-04] MEDS: Heparin - SQ 10,000 UNITS/ML Vial SQ SCH ×2 (03:37→13:49)
[2018-05-04 06:10] LABS: Baso % (Auto) 0.2 % (0.0-2.0); Eos % (Auto) 0.1 % (0.0-4.0); Hematocrit 35.3 % (39.0-51.0); Hemoglobin 11.8 gm/dL (13.0-17.0); Lymph # (Auto) 1.2 th/mm3 (1.0-4.8); Lymph % (Auto) 13.9 % (9.0-44.0); Mean Corpuscular HGB Conc 33.5 % (32.0-36.0); Mean Corpuscular Hemoglobin 31.7 pg (27.0-34.0); Mean Corpuscular Volume 94.6 fL (80.0-100.0); Mean Platelet Volume 10.3 fL (7.0-11.0); Mono # (Auto) 0.7 th/mm3 (0.0-0.9); Mono % (Auto) 8.1 % (0.0-8.0); Neut # (Auto) 6.5 th/mm3 (1.8-7.7); Neut % (Auto) 77.7 % (16.0-70.0); Platelet Count 168 th/mm3 (150-450); Red Blood Count 3.73 mil/mm3 (4.50-5.90); Red Cell Distribution Width 16.2 % (11.6-17.2); White Blood Count 8.4 th/mm3 (4.0-11.0)
[2018-05-04] MEDS: Levothyroxine 75 MCG Tablet PO SCH (06:28)
[2018-05-04] MEDS: Hydrocortisone Sod Succinate 100 MG Vial IV.PUSH SCH ×3 (06:32→21:18)
[2018-05-04 06:33] LABS: Anion Gap 5 meq/L (5-15); Aspartate Aminotransferase 77 U/L (15-37); Blood Urea Nitrogen 19 mg/dL (7-18); Calcium 8.3 mg/dL (8.5-10.1); Chloride 98 meq/L (98-107); Glomerular Filtration Rate 62 mL/min (>89); Glucose,Random 119 mg/dL (74-106); Magnesium 2.8 mg/dL (1.5-2.5); Potassium 3.6 meq/L (3.5-5.1); Sodium 137 meq/L (136-145)
[2018-05-04 06:37] LABS: Alanine Aminotransferase 164 U/L (12-78); Alkaline Phosphatase 85 U/L (45-117); Phosphorus 3.2 mg/dL (2.5-4.9); Total Protein 6.8 g/dL (6.4-8.2)
[2018-05-04] MEDS: Famotidine PF Inj 20 MG/2 ML Vial IV.PUSH SCH ×2 (08:15→20:47)
[2018-05-04] MEDS: Senna/Docusate Sodium 8.6/50 MG Tablet PO SCH ×2 (08:15→20:47)
[2018-05-04] MEDS: hydrALAZINE 50 MG Tablet PO SCH ×3 (08:15→18:11)
--- NOTE | 2018-05-04 08:25 | P.PNCC ---
Subjective Subjective Remarks/Hospital Course: History of Present Illness: 63-year-old male who was admitted to [facility] on 04/29/18 for myxedema coma and is now transferred to [facility] after Halicat For respiratory distress. He has a history of coronary artery disease with prior stent 2013, hypertension, COPD. He presented with a 4-6 week history of audiovisual hallucinations. He had experienced 95 pounds of weight gain over the past 6 months and had periorbital edema. TSH was greater than 100. He has been evaluated by endocrinology and is on Synthroid IV 250 mcg daily. He has had intermittent agitation. He has intermittently received Ativan 1 mg but his last dose was 05/02 at 1427 and he reportedly has had paradoxical agitation with benzodiazepines. Tonight he became extremely agitated with systolic blood pressures in the 200s/110. He developed respiratory distress and hypoxia. Chest x-ray shows pulmonary edema. He received Lasix 20 mg IV per the hospitalist and was placed on BiPAP. His blood pressure is coming down with systolic blood pressure in the 150s. I am also applying nitroglycerin paste. His ABG demonstrates acute hypercapnic respiratory failure with pH of 7.30/ PaCO2 of 60/PO2 of 70. He has bilateral wheezing, is protecting his airway. 05/04: Breathing more comfortably this morning. On BiPAP with acceptable oxygen saturation on 40% FiO2 and nonlabored respiratory pattern. No wheezing. Calm. Objective Vital Signs / I&O: Vital Signs 05/03/18 08:00 05/03/18 12:00 05/03/18 12:07 Temperature 99.2 F 98 F Pulse Rate 83 65 65 Respiratory Rate 11 L 18 Blood Pressure 190/94 H 120/56 L Pulse Oximetry 94 L 05/03/18 16:00 05/03/18 20:00 05/03/18 20:04 Temperature 98.7 F 98.1 F Pulse Rate 79 76 80 Respiratory Rate 11 L 26 H 20 Blood Pressure 131/66 192/79 H Pulse Oximetry 98 05/03/18 23:46 05/04/18 00:00 05/04/18 03:42 Temperature 97.6 F Pulse Rate 75 74 Respiratory Rate 20 23 Blood Pressure 153/85 H Pulse Oximetry 97 97 05/04/18 03:44 05/04/18 04:00 05/04/18 07:26 Temperature 98.2 F Pulse Rate 64 77 58 L Respiratory Rate 12 15 10 L Blood Pressure 134/67 Pulse Oximetry 99 Intake & Output 05/03/18 05/04/18 05/04/18 18:59 06:59 18:59 Intake Total 400 / 400 440 / 440 Output Total 2425 / 2425 650 / 650 Balance -2024 / -2024 -210 / -210 Weight 121.8 kg Intake: Oral 400 / 400 440 / 440 Output: Urine 650 / 650 Urine Amount (Catheter) 2424 / 242 Indwelling Urethral Catheter 2424 Other: Date of Last Bowel Movement 05/02/18 05/02/18 # Bowel Movements 1 Result Diagrams: 05/04/18 05:56 05/04/18 05:56 Objective Remarks: Physical Exam 05/03/18 00:31 05/03/18 00:34 05/03/18 00:53 Temperature 97.5 F L Pulse Rate 90 90 Respiratory Rate 28 H 22 Blood Pressure 197/110 H Pulse Oximetry 95 87 L 05/03/18 01:00 05/03/18 04:00 05/03/18 04:08 Temperature 98.4 F Pulse Rate 58 L 92 H Respiratory Rate 12 22 Blood Pressure 129/69 Pulse Oximetry 98 98 Intake & Output 05/02/18 05/02/18 05/03/18 06:59 18:59 06:59 Intake Total 1480 / 1480 1200 / 1200 Output Total 850 / 850 Balance 630 / 630 1200 / 1200 Intake: IV 1000 / 1000 NS Inj 1,000 ML @ 100 mls/hr IV 1000 / 1000 .CONT .Q10H CHARLY Rx#:[id number] Oral 480 / 480 1200 / 1200 Output: Urine 850 / 850 Other: # Voids 10 Date of Last Bowel Movement 04/29/18 05/02/18 # Bowel Movements 1 Narrative: GENERAL: Overweight, otherwise well-developed male who is lying in ISC bed. BiPAP mask is in place. SKIN: Warm and dry, adequately perfused.. No rash HEAD: Atraumatic. Normocephalic. EYES: Pupils equal and round, 2 mm and reactive bilaterally. ENT: BiPAP mask is in place NECK: Trachea midline. No JVD appreciated, neck is thick. Airway widely patent , no obstructive noises CARDIOVASCULAR: Regular rate and rhythm, sinus rhythm on the monitor with rate in the 80. No murmurs rubs or gallops appreciated. Cardiac contractility is grossly normal on bedside ultrasound. Small pericardial effusion, no tamponade. RESPIRATORY: On BiPAP 16/5, respiratory rate 18. No accessory muscle use. No wheezes, few crackles. GASTROINTESTINAL: Abdomen protuberant and obese, soft, non-tender, nondistended. Bowel sounds present. No guarding. MUSCULOSKELETAL: Extremities without clubbing, cyanosis, or edema. No obvious deformities. NEUROLOGICAL: Opens eyes to voice and gentle sternal rub, moves extremities spontaneously. Mumbles some incomprehensible words with BiPAP mask in place. Does not follow commands. Assessment and Plan - Assessment and Plan Plan: NEURO: Marijuana abuse Acute agitated delirium Acute encephalopathy, multifactorial also secondary to hypercapnia This agitated delirium presentation can be seen with severe hypothyroidism. He is now more lethargic but is also hypercapneic. Check ammonia level, check CT brain for completeness when respiratory status stabilizes. MRI brain with no acute findings. Old lacunar infarct present. RESP: Acute hypoxemic and hypercapnic respiratory failure on BiPAP Acute COPD exacerbation Pulmonary edema Chest x-ray with pulmonary edema. Will continue diuresis. Added NTG paste. DuoNeb every 4 hours. Albuterol every 2 hours as needed. We will continue BiPAP for now. Follow followed up ABG, titrated inspiratory pressure to 18/5.. Wean BiPAP as tolerated. His lethargy does seem to be improving on BiPAP, getting more agitated again. Continue Symbicort 80/4.52 puffs inhaled twice daily. CV: Coronary artery disease with prior stent Pulmonary edema Hypertension There is potential for ischemia during treatment with IV Synthroid. I do not see any ischemic changes on EKG currently. He does not complain of any chest pain His initial troponin is 0.04. Will do serial EKGs and trend to prep troponin. Will check formal echo. Continue aspirin 81 mg daily. Continue hydralazine 50 mg p.o. 3 times daily. Continue nitroglycerin as per above. Diuresing with Lasix. With the hydralazine he may need a concomitant loop diuretic to prevent pulmonary edema. Could consider alternate agent for hypertension management. Will use labetalol prn if needed. Had prior NSTEMI with cardiac cath 09/29/13 with bare metal stent to [facility] OM by Dr. Vale. (20% L main, 30% mid LAD, 30% ostial OM lesion) GI: Cardiac diet when mental status improves FEN/RENAL: Sorensen catheter has been inserted. Monitor intake and output closely. Monitor electrolytes. Replace electrolytes as indicated. ID: Afebrile. Monitor for signs and symptoms of infection. HEME: Monitor CBC ENDO: Severe hypothyroidism with myxedema coma On Synthroid 250 mcg IV daily for 3 doses per endocrinology. Synthroid 75 mcg p.o. daily. Hydrocortisone 100 mg IV every 8 hours PROPH: SCDs and heparin 5000 subcu every 12 for DVT prophylaxis. Famotidine for stress ulcer prophylaxis ACCESS: Peripheral IV providing adequate access at this time. Patient woke up and was conversant, removed Bipap mask. Became agitated and combative, scratched a nurse. Will use geodon 10 mg IM if needed for chemical restraint for patient and staff safety. Full code Patient remains quite ill with acute respiratory failure requiring titration of BiPAP, and initiation of nebs, diuresis to prevent worsening hypoxia and potential intubation. He will need to remain in [facility] for monitoring airway protection and management of respiratory failure.
[2018-05-04] MEDS: LORazepam 1 MG Tablet PO PRN (10:30)
[2018-05-04] MEDS: Levothyroxine 100 MCG Tablet PO SCH (13:49)
--- NOTE | 2018-05-04 20:16 | P.PNEN ---
Subjective Interval history: Pt has been doing better from an endocrine standpoint. His Free T4 is now in the lower range of sarah reference range. Otherwise his periorbital edema has all but disappered. He is now feeling better from the endocrine energy standpoint. He had a bout of chest tightness yesterday which was related to some other circumstances he reports. Otherwise he is camping now with a bout of his usual loose bowel movements. Physical Exam Vital signs: Vital Signs 05/03/18 23:46 05/04/18 00:00 05/04/18 03:42 Temperature 97.6 F Pulse Rate 75 74 Respiratory Rate 20 23 Blood Pressure 153/85 H Pulse Oximetry 97 97 05/04/18 03:44 05/04/18 04:00 05/04/18 07:26 Temperature 98.2 F Pulse Rate 64 77 58 L Respiratory Rate 12 15 10 L Blood Pressure 134/67 Pulse Oximetry 99 05/04/18 08:00 05/04/18 11:05 05/04/18 12:00 Temperature 98.4 F 98.6 F Pulse Rate 64 80 76 Respiratory Rate 14 20 15 Blood Pressure 169/86 H 146/73 H Pulse Oximetry 100 97 05/04/18 15:09 05/04/18 16:00 Temperature 98.6 F Pulse Rate 94 H 86 Respiratory Rate 22 24 Blood Pressure 182/86 H Pulse Oximetry 99 Intake & Output 05/04/18 05/04/18 05/05/18 06:59 18:59 06:59 Intake Total 440 / 440 960 / 960 Output Total 650 / 650 450 / 450 Balance -210 / -210 510 / 510 Weight 121.8 kg Intake: Oral 440 / 440 960 / 960 Output: Urine 650 / 650 450 / 450 Other: Date of Last Bowel Movement 05/02/18 05/02/18 # Bowel Movements 0 - Constitutional no acute distress, obese (Patient's periorbital edema is all but resolved. He is awake, alert and oriented. He is able to give a good history. ) - Urinary Catheter Management Indwelling Urethral Catheter Cath placed during this visit: yes Reason for continuing: Hourly intake/output Insertion date: 05/03/18 Insertion time: 02:00 Assessment and Plan - Assessment (1) Hypothyroidism (acquired) Code(s): E03.9 - Hypothyroidism, unspecified Status: Acute Plan: Labs reviewed. Patient's free t4 is now at the lower limit of the reference range. Orders for oral replacement clarified with pharmacist this morning. Patient was getting 75 mcg rather than the 175 mcg which was clarified this morning. He is tolerating this well. Will continue with the 175 mcg PO QD and will give him another 2 dosages of 250 mcg of IV QAM x 2 and continue with his oral dose of 175. Consider to increase this to 225 mcg once his IV loading has been completed. Conservative approach taken is based on his PMHX of CAD. (2) CAD in [place] artery Code(s): I25.10 - Atherosclerotic heart disease of [place] coronary artery without angina pectoris Status: Acute (3) Tobacco abuse Code(s): Z72.0 - Tobacco use Status: Acute
[2018-05-04] MEDS: Labetalol HCl Inj 100 MG/20 ML Vial IV.PUSH PRN (23:09)
--- NOTE | 2018-05-05 00:23 | ECG ---
Date Performed: 05/03/2018 Time Performed: 17:56:52 PTAGE: 63 years EKG: Sinus rhythm NONSPECIFIC T-WAVE ABNORMALITY BORDERLINE ECG PREVIOUS TRACING : 05/03/2018 12.43 Since the previous tracing, no significant change noted DOCTOR: Edgardo Bateman Interpretating Date/Time 05/05/2018 00:22:10
--- NOTE | 2018-05-05 00:28 | ECG ---
Date Performed: 05/03/2018 Time Performed: 12:43:58 PTAGE: 63 years EKG: Sinus rhythm NONSPECIFIC T-WAVE ABNORMALITY BORDERLINE ECG PREVIOUS TRACING : 05/03/2018 01.09 Since the previous tracing, no significant change noted DOCTOR: Edgardo Bateman Interpretating Date/Time 05/05/2018 00:27:56
[2018-05-05] MEDS: Heparin - SQ 10,000 UNITS/ML Vial SQ SCH ×2 (02:15→13:14)
[2018-05-05 05:26] LABS: Baso % (Auto) 0.2 % (0.0-2.0); Hematocrit 33.8 % (39.0-51.0); Hemoglobin 11.3 gm/dL (13.0-17.0); Lymph # (Auto) 1.1 th/mm3 (1.0-4.8); Lymph % (Auto) 13.3 % (9.0-44.0); Mean Corpuscular HGB Conc 33.3 % (32.0-36.0); Mean Corpuscular Hemoglobin 31.6 pg (27.0-34.0); Mean Platelet Volume 10.3 fL (7.0-11.0); Mono # (Auto) 0.6 th/mm3 (0.0-0.9); Neut # (Auto) 6.4 th/mm3 (1.8-7.7); Neut % (Auto) 79.5 % (16.0-70.0); Platelet Count 179 th/mm3 (150-450); Red Blood Count 3.56 mil/mm3 (4.50-5.90); Red Cell Distribution Width 15.8 % (11.6-17.2); White Blood Count 8.1 th/mm3 (4.0-11.0)
[2018-05-05 05:48] LABS: Alanine Aminotransferase 145 U/L (12-78); Albumin 3.6 g/dL (3.4-5.0); Anion Gap 5 meq/L (5-15); Aspartate Aminotransferase 60 U/L (15-37); Blood Urea Nitrogen 19 mg/dL (7-18); Calcium 8.2 mg/dL (8.5-10.1); Carbon Dioxide 35.1 meq/L (21.0-32.0); Chloride 100 meq/L (98-107); Glomerular Filtration Rate 62 mL/min (>89); Glucose,Random 129 mg/dL (74-106); Magnesium 2.7 mg/dL (1.5-2.5); Potassium 3.7 meq/L (3.5-5.1); Sodium 140 meq/L (136-145)
[2018-05-05 05:52] LABS: Alkaline Phosphatase 77 U/L (45-117); Free T4 (Free Thyroxine) 0.77 ng/dL (0.76-1.46); Phosphorus 3.3 mg/dL (2.5-4.9); Total Protein 6.4 g/dL (6.4-8.2)
[2018-05-05] MEDS: Hydrocortisone Sod Succinate 100 MG Vial IV.PUSH SCH ×3 (06:34→22:09)
[2018-05-05] MEDS: Levothyroxine 75 MCG Tablet PO SCH (07:15)
[2018-05-05] MEDS: Levothyroxine 100 MCG Tablet PO SCH (07:15)
[2018-05-05] MEDS: Senna/Docusate Sodium 8.6/50 MG Tablet PO SCH ×2 (08:53→20:43)
[2018-05-05] MEDS: hydrALAZINE 50 MG Tablet PO SCH ×3 (08:53→18:16)
[2018-05-05] MEDS: Famotidine PF Inj 20 MG/2 ML Vial IV.PUSH SCH ×2 (08:53→20:42)
[2018-05-05] MEDS: Budesonide-Formoterol 80/4.5 MCG 6.9 GM Inhaler INH SCH ×2 (08:54→22:08)
[2018-05-05] MEDS: LORazepam 1 MG Tablet PO PRN ×2 (11:06→20:43)
--- NOTE | 2018-05-05 11:42 | P.PNCC ---
Subjective Subjective Remarks/Hospital Course: History of Present Illness: 63-year-old male who was admitted to [facility] on 04/29/18 for myxedema coma and is now transferred to [facility] after Halicat For respiratory distress. He has a history of coronary artery disease with prior stent 2013, hypertension, COPD. He presented with a 4-6 week history of audiovisual hallucinations. He had experienced 95 pounds of weight gain over the past 6 months and had periorbital edema. TSH was greater than 100. He has been evaluated by endocrinology and is on Synthroid IV 250 mcg daily. He has had intermittent agitation. He has intermittently received Ativan 1 mg but his last dose was 05/02 at 1427 and he reportedly has had paradoxical agitation with benzodiazepines. Tonight he became extremely agitated with systolic blood pressures in the 200s/110. He developed respiratory distress and hypoxia. Chest x-ray shows pulmonary edema. He received Lasix 20 mg IV per the hospitalist and was placed on BiPAP. His blood pressure is coming down with systolic blood pressure in the 150s. I am also applying nitroglycerin paste. His ABG demonstrates acute hypercapnic respiratory failure with pH of 7.30/ PaCO2 of 60/PO2 of 70. He has bilateral wheezing, is protecting his airway. 05/04: Breathing more comfortably this morning. On BiPAP with acceptable oxygen saturation on 40% FiO2 and nonlabored respiratory pattern. No wheezing. Calm. 05/05: Breathing comfortably off BiPAP. Pulse rate in the high 70s. More interactive today and states he feels better. Continue ICU care as we replete his thyroid hormone in the face of underlying coronary artery disease. Objective Vital Signs / I&O: Vital Signs 05/04/18 12:00 05/04/18 15:09 05/04/18 16:00 Temperature 98.6 F 98.6 F Pulse Rate 76 94 H 86 Respiratory Rate 15 22 24 Blood Pressure 146/73 H 182/86 H Pulse Oximetry 97 99 05/04/18 19:31 05/04/18 20:00 05/05/18 00:00 Temperature 98 F 98.2 F Pulse Rate 99 H 88 84 Respiratory Rate 20 15 20 Blood Pressure 121/86 172/83 H Pulse Oximetry 99 96 95 05/05/18 00:37 05/05/18 01:18 05/05/18 04:00 Temperature 98.1 F Pulse Rate 76 66 Respiratory Rate 15 10 L Blood Pressure 124/70 Pulse Oximetry 97 97 05/05/18 07:47 05/05/18 08:00 05/05/18 11:10 Temperature 98.3 F Pulse Rate 66 88 Respiratory Rate 9 L 22 Blood Pressure 124/60 Pulse Oximetry 99 98 Intake & Output 05/04/18 05/05/18 05/05/18 18:59 06:59 18:59 Intake Total 960 / 960 480 / 480 Output Total 450 / 450 1000 / 1000 Balance 510 / 510 -520 / -520 Weight 124.3 kg Intake: Oral 960 / 960 480 / 480 Output: Urine 450 / 450 1000 / 1000 Other: Date of Last Bowel Movement 05/02/18 05/02/18 05/02/18 # Bowel Movements 0 0 Result Diagrams: 05/05/18 04:30 05/05/18 04:30 Objective Remarks: Physical Exam GENERAL: Overweight, otherwise well-developed male who is lying in ISC bed. BiPAP mask is off. SKIN: Warm and dry, adequately perfused. No rash HEAD: Atraumatic. Normocephalic. EYES: Pupils equal and round, 2 mm and reactive to light bilaterally. NECK: Trachea midline, neck is thick. Airway widely patent, no obstructive noises CARDIOVASCULAR: Regular rate and rhythm, sinus rhythm on the monitor with rate in the 70s. No murmurs rubs or gallops appreciated. RESPIRATORY: Respiratory rate 17. No accessory muscle use. No wheezes, crackles. GASTROINTESTINAL: Abdomen protuberant and obese, soft, non-tender, nondistended. Bowel sounds present. No guarding. MUSCULOSKELETAL: Extremities without clubbing, cyanosis, or edema. NEUROLOGICAL: Conversant, speech clear. Moves 4 limbs to command. Assessment and Plan - Assessment and Plan Plan: NEURO: Marijuana abuse Acute agitated delirium Acute encephalopathy, multifactorial also secondary to hypercapnia This agitated delirium presentation can be seen with severe hypothyroidism. Check ammonia level, check CT brain for completeness when respiratory status stabilizes. MRI brain with no acute findings. Old lacunar infarct present. RESP: Acute hypoxemic and hypercapnic respiratory failure on BiPAP Acute COPD exacerbation Pulmonary edema Chest x-ray with pulmonary edema. Will continue diuresis. Added NTG paste. DuoNeb every 4 hours. Albuterol every 2 hours as needed. We will continue BiPAP for now. Follow followed up ABG, titrated inspiratory pressure to 18/5.. Wean BiPAP as tolerated. Continue Symbicort 80/4.52 puffs inhaled twice daily. CV: Coronary artery disease with prior stent Pulmonary edema Hypertension There is potential for ischemia during treatment with IV Synthroid. I do not see any ischemic changes on EKG currently. He does not complain of any chest pain His initial troponin is 0.04. Will do serial EKGs and trend to prep troponin. Will check formal echo. Continue aspirin 81 mg daily. Continue hydralazine 50 mg p.o. 3 times daily. Continue nitroglycerin as per above. Diuresing with Lasix. With the hydralazine he may need a concomitant loop diuretic to prevent pulmonary edema. Could consider alternate agent for hypertension management. Will use labetalol prn if needed. Had prior NSTEMI with cardiac cath 09/29/13 with bare metal stent to 2nd OM by Dr. Vale. (20% L main, 30% mid LAD, 30% ostial OM lesion) GI: Cardiac diet when mental status improves FEN/RENAL: Sorensen catheter has been inserted. Monitor intake and output closely. Monitor electrolytes. Replace electrolytes as indicated. ID: Afebrile. Monitor for signs and symptoms of infection. HEME: Monitor CBC ENDO: Severe hypothyroidism with myxedema coma On Synthroid 250 mcg IV daily for 3 doses per endocrinology. Home dose Synthroid 75 mcg p.o. daily. Hydrocortisone 100 mg IV every 8 hours PROPH: SCDs and heparin 5000 subcu every 12 for DVT prophylaxis. Famotidine for stress ulcer prophylaxis ACCESS: Peripheral IV providing adequate access at this time. Overall impression: Improved mental status. Tolerating hormone replacement. Appreciate help from the endocrinology service.
[2018-05-05] MEDS: Labetalol HCl Inj 100 MG/20 ML Vial IV.PUSH PRN ×3 (13:05→23:44)
[2018-05-06] MEDS: Heparin - SQ 10,000 UNITS/ML Vial SQ SCH ×2 (01:22→15:14)
[2018-05-06] MEDS: Labetalol HCl Inj 100 MG/20 ML Vial IV.PUSH PRN ×2 (05:01→18:28)
[2018-05-06] MEDS: Hydrocortisone Sod Succinate 100 MG Vial IV.PUSH SCH ×3 (06:17→22:09)
[2018-05-06 07:12] LABS: Albumin 3.4 g/dL (3.4-5.0); Anion Gap 8 meq/L (5-15); Aspartate Aminotransferase 43 U/L (15-37); Blood Urea Nitrogen 20 mg/dL (7-18); Calcium 8.5 mg/dL (8.5-10.1); Carbon Dioxide 31.8 meq/L (21.0-32.0); Chloride 98 meq/L (98-107); Glomerular Filtration Rate 68 mL/min (>89); Glucose,Random 145 mg/dL (74-106); Potassium 3.6 meq/L (3.5-5.1); Sodium 138 meq/L (136-145)
[2018-05-06 07:16] LABS: Alanine Aminotransferase 131 U/L (12-78); Alkaline Phosphatase 70 U/L (45-117); Total Protein 6.3 g/dL (6.4-8.2)
[2018-05-06] MEDS: hydrALAZINE 50 MG Tablet PO SCH ×3 (11:27→18:01)
[2018-05-06] MEDS: Famotidine PF Inj 20 MG/2 ML Vial IV.PUSH SCH ×2 (11:28→20:32)
[2018-05-06] MEDS: Senna/Docusate Sodium 8.6/50 MG Tablet PO SCH ×2 (11:28→21:15)
[2018-05-06] MEDS: Budesonide-Formoterol 80/4.5 MCG 6.9 GM Inhaler INH SCH ×2 (11:28→20:35)
[2018-05-06] MEDS: Levothyroxine 75 MCG Tablet PO SCH (11:30)
[2018-05-06] MEDS: Levothyroxine 100 MCG Tablet PO SCH (11:30)
--- NOTE | 2018-05-06 13:26 | P.PNCC ---
Subjective Subjective Remarks/Hospital Course: History of Present Illness: 63-year-old male who was admitted to [facility] on 04/29/18 for myxedema coma and is now transferred to [facility] after Halicat For respiratory distress. He has a history of coronary artery disease with prior stent 2013, hypertension, COPD. He presented with a 4-6 week history of audiovisual hallucinations. He had experienced 95 pounds of weight gain over the past 6 months and had periorbital edema. TSH was greater than 100. He has been evaluated by endocrinology and is on Synthroid IV 250 mcg daily. He has had intermittent agitation. He has intermittently received Ativan 1 mg but his last dose was 05/02 at 1427 and he reportedly has had paradoxical agitation with benzodiazepines. Tonight he became extremely agitated with systolic blood pressures in the 200s/110. He developed respiratory distress and hypoxia. Chest x-ray shows pulmonary edema. He received Lasix 20 mg IV per the hospitalist and was placed on BiPAP. His blood pressure is coming down with systolic blood pressure in the 150s. I am also applying nitroglycerin paste. His ABG demonstrates acute hypercapnic respiratory failure with pH of 7.30/ PaCO2 of 60/PO2 of 70. He has bilateral wheezing, is protecting his airway. 05/04: Breathing more comfortably this morning. On BiPAP with acceptable oxygen saturation on 40% FiO2 and nonlabored respiratory pattern. No wheezing. Calm. 05/05: Breathing comfortably off BiPAP. Pulse rate in the high 70s. More interactive today and states he feels better. Continue ICU care as we replete his thyroid hormone in the face of underlying coronary artery disease. 05/06: He feels more sluggish today. States he is having a not good day. No chest pain or angina. Objective Vital Signs / I&O: Vital Signs 05/05/18 15:33 05/05/18 16:00 05/05/18 20:00 Temperature 98.7 F 98.3 F Pulse Rate 82 80 76 Respiratory Rate 22 14 15 Blood Pressure 144/68 H 145/74 H Pulse Oximetry 95 95 05/05/18 20:12 05/05/18 20:13 05/05/18 23:22 Temperature Pulse Rate 75 73 Respiratory Rate 14 17 Blood Pressure Pulse Oximetry 95 05/06/18 00:00 05/06/18 04:00 05/06/18 07:00 Temperature 97.9 F Pulse Rate 72 74 69 Respiratory Rate 14 11 L 10 L Blood Pressure 143/63 H 189/81 H Pulse Oximetry 92 L 94 L 05/06/18 08:06 05/06/18 11:00 Temperature Pulse Rate 82 Respiratory Rate 20 Blood Pressure Pulse Oximetry 96 Intake & Output 05/05/18 05/06/18 05/06/18 18:59 06:59 18:59 Intake Total 1180 / 1180 950 / 950 Output Total 475 / 475 880 / 880 Balance 705 / 705 70 / 70 Weight 124.3 kg Intake: Oral 1180 / 1180 950 / 950 Output: Urine 475 / 475 880 / 880 Other: # Voids 1 Date of Last Bowel Movement 05/02/18 05/06/18 # Bowel Movements 0 Result Diagrams: 05/05/18 04:30 05/06/18 06:01 Objective Remarks: Physical Exam GENERAL: Overweight, otherwise well-developed male who is lying in ISC bed. SKIN: Warm and dry, adequately perfused. No rash HEAD: Atraumatic. Normocephalic. EYES: Pupils equal and round, 3 mm and reactive to light bilaterally. NECK: Trachea midline, neck is thick. Airway widely patent, no obstructive noises CARDIOVASCULAR: Regular rate and rhythm, sinus rhythm on the monitor with rate in the 70s. No murmurs rubs or gallops appreciated. RESPIRATORY: Respiratory rate 17. No accessory muscle use. No wheezes, crackles. GASTROINTESTINAL: Abdomen protuberant and obese, soft, non-tender, nondistended. Bowel sounds present. No guarding. MUSCULOSKELETAL: Extremities without clubbing, cyanosis, or edema. NEUROLOGICAL: Conversant, speech thick-tongued. Moves 4 limbs to command. Oriented 3. Assessment and Plan - Assessment and Plan Plan: NEURO: Marijuana abuse Acute agitated delirium Acute encephalopathy, multifactorial also secondary to hypercapnia This agitated delirium presentation can be seen with severe hypothyroidism. Check ammonia level, check CT brain for completeness when respiratory status stabilizes. MRI brain with no acute findings. Old lacunar infarct present. Largely resolved delirium. RESP: Acute hypoxemic and hypercapnic respiratory failure on BiPAP Acute COPD exacerbation Pulmonary edema Chest x-ray with pulmonary edema. Will continue diuresis. Added NTG paste. DuoNeb every 4 hours. Albuterol every 2 hours as needed. We will continue BiPAP for now. Follow followed up ABG, titrated inspiratory pressure to 18/5.. Wean BiPAP as tolerated. Continue Symbicort 80/4.52 puffs inhaled twice daily. Light wheezes episodically and continues to desaturate when sleeping. Nasal cannula oxygen increased to 4 L. CV: Coronary artery disease with prior stent Pulmonary edema Hypertension There is potential for ischemia during treatment with IV Synthroid. I do not see any ischemic changes on EKG currently. He does not complain of any chest pain His initial troponin is 0.04. Will do serial EKGs and trend to prep troponin. Will check formal echo. Continue aspirin 81 mg daily. Continue hydralazine 50 mg p.o. 3 times daily. Continue nitroglycerin as per above. Diuresing with Lasix. With the hydralazine he may need a concomitant loop diuretic to prevent pulmonary edema. Could consider alternate agent for hypertension management. Will use labetalol prn if needed. Had prior NSTEMI with cardiac cath 09/29/13 with bare metal stent to 2nd OM by Dr. Vale. (20% L main, 30% mid LAD, 30% ostial OM lesion) GI: Cardiac diet when mental status improves FEN/RENAL: Sorensen catheter has been inserted. Monitor intake and output closely. Monitor electrolytes. Replace electrolytes as indicated. ID: Afebrile. Monitor for signs and symptoms of infection. HEME: Monitor CBC ENDO: Severe hypothyroidism with myxedema coma On Synthroid 250 mcg IV daily for 3 doses per endocrinology. Home dose Synthroid 75 mcg p.o. daily. Hydrocortisone 100 mg IV every 8 hours PROPH: SCDs and heparin 5000 subcu every 12 for DVT prophylaxis. Famotidine for stress ulcer prophylaxis ACCESS: Peripheral IV providing adequate access at this time. Overall impression: Improved mental status. Tolerating hormone replacement. Appreciate help from the endocrinology service. COPD continues to be a moderate additional problem.
--- NOTE | 2018-05-06 15:06 | P.PNPSY ---
Subjective Remarks: Patient seen and examined. Chart reviewed. Case discussed with nursing staff. Per nursing staff, patient having ongoing intermittent AVH. He was reportedly complaining that his room was covered in feces, but nursing staff could see no evidence of this. On my examination today, patient says that he has had 2 episodes of AVH since we met last. Presently he denies AVH. No CAH. Denies suicidal or homicidal ideation, intent or plan. No paranoia. Very concerned about possibly having SESAR. Remains somewhat encephalopathic. Vital Signs Temp Pulse Resp BP Pulse Ox 05/06/18 11:00 82 20 05/06/18 08:06 96 05/06/18 07:00 69 10 L 05/06/18 04:00 97.9 F 74 11 L 189/81 H 94 L 05/06/18 00:00 72 14 143/63 H 92 L 05/05/18 23:22 73 17 05/05/18 20:13 95 05/05/18 20:12 75 14 05/05/18 20:00 98.3 F 76 15 145/74 H 95 05/05/18 16:00 98.7 F 80 14 144/68 H 95 05/05/18 15:33 82 22 Intake and Output 05/05/18 05/06/18 05/06/18 22:59 06:59 14:59 Intake Total 1180 / 1180 950 / 950 Output Total 475 / 475 880 / 880 Balance 705 / 705 70 / 70 Intake: Oral 1180 / 1180 950 / 950 Output: Urine 475 / 475 880 / 880 Other: # Voids 1 Date of Last Bowel Movement 05/02/18 05/06/18 # Bowel Movements 0 Weight 124.3 kg Laboratory Results - last 24 hr 05/06/18 06:01 Sodium 138 Potassium 3.6 Chloride 98 Carbon Dioxide 31.8 Anion Gap 8 BUN 20 H Creatinine 1.10 Estimated GFR 68 L Random Glucose 145 H Calcium 8.5 Total Bilirubin 0.5 AST 43 H ALT 131 H Alkaline Phosphatase 70 Total Protein 6.3 L Albumin 3.4 Labs reviewed. EEG read as mild encephalopathy. MRI brain read as no acute process. Chronic small vessel disease. Old lacunar infarct. Review of Systems All other systems reviewed negative except as stated in HPI (Limitation: Poor historian) Mental Status Examination Appearance: Disheveled Consciousness: Alert Orientation: Person, Place ([place]), Date/Time (May 06) Motor Activity: Other (No abnormal motor movements noted) Speech: Other (Garbled) Language: Adequate Fund of Knowledge: Adequate Attention and Concentration: Easily distracted (WORLD backward is WLROW) Memory: Unremarkable Mood: Anxious Affect: Anxious Thought Process & Associations: Circumstantial Thought Content: Hallucinations Hallucination Type: Auditory, Visual, Other (No CAH) Delusion Type: None Suicidal Ideation: No Suicidal Plan: No Suicidal Intention: No Homicidal Ideation: No Homicidal Plan: No Homicidal Intention: No Insight: Poor Judgment: Poor Assessment and Plan - Assessment (1) Delirium due to another medical condition Code(s): F05 - Delirium due to known physiological condition Status: Acute (2) Myxedema Code(s): E03.9 - Hypothyroidism, unspecified Status: Acute - Plan Plan: Ongoing encephalopathy. Recommendations as before. Psychiatry will follow up as needed. I will sign the case out to Dr. Michaels when he returns at the end of the week. Justification for Continued Inpatient Stay: Per primary team.
[2018-05-06] MEDS: LORazepam 1 MG Tablet PO PRN (16:00)
[2018-05-06] MEDS: Temazepam 15 MG Capsule PO PRN (20:31)
[2018-05-06] MEDS: Hypromellose 0.3% Opth Gel 10 GM Bottle EACH EYE PRN (20:36)
[2018-05-07] MEDS: Heparin - SQ 10,000 UNITS/ML Vial SQ SCH ×2 (02:48→17:09)
[2018-05-07] MEDS: Levothyroxine 75 MCG Tablet PO SCH (05:51)
[2018-05-07] MEDS: Levothyroxine 100 MCG Tablet PO SCH (05:51)
[2018-05-07] MEDS: Hydrocortisone Sod Succinate 100 MG Vial IV.PUSH SCH ×3 (05:51→21:12)
[2018-05-07 08:04] LABS: Albumin 3.7 g/dL (3.4-5.0); Anion Gap 7 meq/L (5-15); Aspartate Aminotransferase 49 U/L (15-37); Blood Urea Nitrogen 21 mg/dL (7-18); Calcium 8.9 mg/dL (8.5-10.1); Chloride 96 meq/L (98-107); Glomerular Filtration Rate 67 mL/min (>89); Glucose,Random 117 mg/dL (74-106); Potassium 3.8 meq/L (3.5-5.1); Sodium 137 meq/L (136-145)
[2018-05-07 08:05] LABS: Alanine Aminotransferase 143 U/L (12-78)
[2018-05-07 08:07] LABS: Alkaline Phosphatase 81 U/L (45-117); Total Protein 6.7 g/dL (6.4-8.2)
[2018-05-07] MEDS: hydrALAZINE 50 MG Tablet PO SCH ×3 (08:16→17:09)
[2018-05-07] MEDS: Senna/Docusate Sodium 8.6/50 MG Tablet PO SCH ×2 (08:17→21:12)
[2018-05-07] MEDS: Famotidine PF Inj 20 MG/2 ML Vial IV.PUSH SCH ×2 (08:17→21:23)
[2018-05-07] MEDS: Budesonide-Formoterol 80/4.5 MCG 6.9 GM Inhaler INH SCH ×2 (08:18→21:11)
--- NOTE | 2018-05-07 08:53 | P.PNCC ---
Subjective Subjective Remarks/Hospital Course: History of Present Illness: 63-year-old male who was admitted to [facility] on 04/29/18 for myxedema coma and is now transferred to [facility] after [facility] For respiratory distress. He has a history of coronary artery disease with prior stent 2013, hypertension, COPD. He presented with a 4-6 week history of audiovisual hallucinations. He had experienced 95 pounds of weight gain over the past 6 months and had periorbital edema. TSH was greater than 100. He has been evaluated by endocrinology and is on Synthroid IV 250 mcg daily. He has had intermittent agitation. He has intermittently received Ativan 1 mg but his last dose was 05/02 at 1427 and he reportedly has had paradoxical agitation with benzodiazepines. Tonight he became extremely agitated with systolic blood pressures in the 200s/110. He developed respiratory distress and hypoxia. Chest x-ray shows pulmonary edema. He received Lasix 20 mg IV per the hospitalist and was placed on BiPAP. His blood pressure is coming down with systolic blood pressure in the 150s. I am also applying nitroglycerin paste. His ABG demonstrates acute hypercapnic respiratory failure with pH of 7.30/ PaCO2 of 60/PO2 of 70. He has bilateral wheezing, is protecting his airway. 05/04: Breathing more comfortably this morning. On BiPAP with acceptable oxygen saturation on 40% FiO2 and nonlabored respiratory pattern. No wheezing. Calm. 05/05: Breathing comfortably off BiPAP. Pulse rate in the high 70s. More interactive today and states he feels better. Continue ICU care as we replete his thyroid hormone in the face of underlying coronary artery disease. 05/06: He feels more sluggish today. States he is having a not good day. No chest pain or angina. 05/07: Patient continues to have thick tongue and coarse voice. Appears well oriented but he does not always make complete sense. Remains normotensive and pulse rate is well controlled in the high 60s. Objective Vital Signs / I&O: Vital Signs 05/06/18 11:00 05/06/18 18:29 05/06/18 20:00 Temperature 97.8 F Pulse Rate 82 69 77 Respiratory Rate 20 17 14 Blood Pressure 149/69 H Pulse Oximetry 100 05/06/18 20:13 05/06/18 23:33 05/07/18 00:00 Temperature 98.2 F Pulse Rate 77 79 81 Respiratory Rate 18 19 Blood Pressure 154/86 H Pulse Oximetry 97 05/07/18 04:00 05/07/18 08:09 Temperature 98.2 F Pulse Rate 70 Respiratory Rate 16 Blood Pressure 176/89 H Pulse Oximetry 97 Intake & Output 05/06/18 05/07/18 05/07/18 18:59 06:59 18:59 Intake Total 950 / 950 2049 Output Total 3305 / 3305 3305 / 3305 Balance -2355 / -2355 -1255 / -1255 Weight 125.5 kg Intake: Oral 950 / 950 2049 Output: Urine 880 / 880 880 / 880 Urine Amount (Catheter) 2425 / 2425 2425 / 2425 Indwelling Urethral Catheter 2425 / 2425 2425 / 2425 Other: # Voids 1 3 Date of Last Bowel Movement 05/06/18 05/06/18 # Bowel Movements 0 0 Result Diagrams: 05/05/18 04:30 05/07/18 07:28 Objective Remarks: Physical Exam GENERAL: Overweight, otherwise well-developed male who is lying in ISC bed. SKIN: Warm and dry, adequately perfused. No rash HEAD: Atraumatic. Normocephalic. EYES: Pupils equal and round, 2 mm and reactive to light bilaterally. NECK: Trachea midline, neck is thick. Airway widely patent, no obstructive noises CARDIOVASCULAR: Regular rate and rhythm, sinus rhythm on the monitor with rate in the high 60s. No murmurs rubs or gallops appreciated. RESPIRATORY: Respiratory rate 17. No accessory muscle use. No wheezes, crackles. GASTROINTESTINAL: Abdomen protuberant and obese, soft, non-tender, nondistended. Bowel sounds present. No guarding. MUSCULOSKELETAL: Extremities without clubbing, cyanosis, or edema. Warm and well-perfused NEUROLOGICAL: Conversant, speech remains thick-tongued. Moves 4 limbs to command. Alert but his observations are not always accurate. Assessment and Plan - Assessment and Plan Plan: NEURO: Marijuana abuse Acute agitated delirium Acute encephalopathy, multifactorial also secondary to hypercapnia This agitated delirium presentation can be seen with severe hypothyroidism. Check ammonia level, check CT brain for completeness when respiratory status stabilizes. MRI brain with no acute findings. Old lacunar infarct present. Largely resolved delirium. Intermittently confused and disoriented. RESP: Acute hypoxemic and hypercapnic respiratory failure on BiPAP Acute COPD exacerbation Pulmonary edema Chest x-ray with pulmonary edema. Will continue diuresis. Added NTG paste. DuoNeb every 4 hours. Albuterol every 2 hours as needed. We will continue BiPAP for now. Follow followed up ABG, titrated inspiratory pressure to 18/5.. Wean BiPAP as tolerated. Continue Symbicort 80/4.52 puffs inhaled twice daily. Light wheezes episodically and continues to desaturate when sleeping. Nasal cannula oxygen increased to 4 L. Breathing much improved after 6 L diuresis yesterday. CV: Coronary artery disease with prior stent Pulmonary edema Hypertension There is potential for ischemia during treatment with IV Synthroid. I do not see any ischemic changes on EKG currently. He does not complain of any chest pain His initial troponin is 0.04. Will do serial EKGs and trend to prep troponin. Will check formal echo. Continue aspirin 81 mg daily. Continue hydralazine 50 mg p.o. 3 times daily. Continue nitroglycerin as per above. Diuresing with Lasix. With the hydralazine he may need a concomitant loop diuretic to prevent pulmonary edema. Could consider alternate agent for hypertension management. Will use labetalol prn if needed. Had prior NSTEMI with cardiac cath 09/29/13 with bare metal stent to 2nd OM by Dr. Vale. (20% L main, 30% mid LAD, 30% ostial OM lesion) GI: Cardiac diet when mental status improves FEN/RENAL: Monitor intake and output closely. Monitor electrolytes. Replace electrolytes as indicated. ID: Afebrile. Monitor for signs and symptoms of infection. HEME: Monitor CBC ENDO: Severe hypothyroidism with myxedema coma On Synthroid 250 mcg IV daily for 3 doses per endocrinology. Home dose Synthroid 75 mcg p.o. daily. Hydrocortisone 100 mg IV every 8 hours PROPH: SCDs and heparin 5000 subcu every 12 for DVT prophylaxis. Famotidine for stress ulcer prophylaxis ACCESS: Peripheral IV providing adequate access at this time. Overall impression: Improved mental status. Tolerating hormone replacement. No chest pain or worsening shortness of breath. Appreciate help from the endocrinology service. COPD continues to be a moderate additional problem. Should transfer to floor with telemetry while we are rapidly replacing thyroid hormone.
--- NOTE | 2018-05-07 12:44 | P.PNPSY ---
Case signed out to Dr. Michaels, who will assume consultative role. If you require psychiatric assistance with this patient, please contact Dr. Michaels.
[2018-05-07] MEDS: LORazepam 1 MG Tablet PO PRN (21:18)
[2018-05-08] MEDS: Heparin - SQ 10,000 UNITS/ML Vial SQ SCH ×2 (02:14→13:29)
[2018-05-08] MEDS: Hydrocortisone Sod Succinate 100 MG Vial IV.PUSH SCH ×3 (05:10→21:00)
[2018-05-08] MEDS: Levothyroxine 75 MCG Tablet PO SCH (05:10)
[2018-05-08] MEDS: Levothyroxine 100 MCG Tablet PO SCH (05:10)
[2018-05-08 07:39] LABS: Baso % (Auto) 0.1 % (0.0-2.0); Eos % (Auto) 0.1 % (0.0-4.0); Hematocrit 32.6 % (39.0-51.0); Hemoglobin 11.1 gm/dL (13.0-17.0); Lymph # (Auto) 1.1 th/mm3 (1.0-4.8); Mean Corpuscular HGB Conc 34.1 % (32.0-36.0); Mean Corpuscular Hemoglobin 32.1 pg (27.0-34.0); Mean Corpuscular Volume 94.4 fL (80.0-100.0); Mean Platelet Volume 9.8 fL (7.0-11.0); Mono # (Auto) 0.8 th/mm3 (0.0-0.9); Mono % (Auto) 9.4 % (0.0-8.0); Neut # (Auto) 6.3 th/mm3 (1.8-7.7); Neut % (Auto) 77.4 % (16.0-70.0); Platelet Count 184 th/mm3 (150-450); Red Blood Count 3.45 mil/mm3 (4.50-5.90); Red Cell Distribution Width 15.9 % (11.6-17.2); White Blood Count 8.2 th/mm3 (4.0-11.0)
[2018-05-08 08:18] LABS: Calcium 8.4 mg/dL (8.5-10.1); Carbon Dioxide 35.8 meq/L (21.0-32.0); Potassium 3.5 meq/L (3.5-5.1)
[2018-05-08 08:22] LABS: Free T4 (Free Thyroxine) 1.04 ng/dL (0.76-1.46)
[2018-05-08] MEDS: hydrALAZINE 50 MG Tablet PO SCH ×3 (09:25→18:23)
[2018-05-08] MEDS: Famotidine PF Inj 20 MG/2 ML Vial IV.PUSH SCH ×2 (09:25→20:59)
[2018-05-08] MEDS: Senna/Docusate Sodium 8.6/50 MG Tablet PO SCH ×2 (09:25→21:00)
[2018-05-08] MEDS: LORazepam 1 MG Tablet PO PRN (09:25)
[2018-05-08] MEDS: Budesonide-Formoterol 80/4.5 MCG 6.9 GM Inhaler INH SCH ×2 (09:29→21:50)
--- NOTE | 2018-05-08 13:45 | P.PNIM ---
Subjective Interval history: Patient states that he would like something else on Ativan. In the past Xanax work. He states that he needs something for anxiety. Overall he has felt better than when he first was admitted here. There is no other complaints at this time. Physical Exam Vital signs: Vital Signs 05/07/18 16:00 05/07/18 19:10 05/07/18 20:00 Temperature 98.0 F 97.7 F Pulse Rate 83 79 78 Respiratory Rate 18 18 18 Blood Pressure 203/95 H 197/99 H Pulse Oximetry 95 93 L 94 L 05/07/18 23:15 05/08/18 04:00 05/08/18 08:00 Temperature 98.2 F 97.4 F L Pulse Rate 80 71 Respiratory Rate 17 20 Blood Pressure 156/86 H 128/62 140/72 Pulse Oximetry 97 93 L Intake & Output 05/07/18 05/08/18 05/08/18 18:59 06:59 18:59 Intake Total 240 / 240 Output Total 400 / 400 Balance -160 / -160 Weight 122.8 kg 123.1 kg Intake: Oral 240 / 240 Output: Urine 400 / 400 Other: Date of Last Bowel Movement 05/06/18 05/06/18 Narrative: GENERAL: Overweight well-developed male who is sitting up in ISC bed. BiPAP mask is in place. SKIN: Warm and dry, adequately perfused.. No rash HEAD: Atraumatic. Normocephalic. NECK: Trachea midline. neck is thick.. CARDIOVASCULAR: Regular rate and rhythm, RESPIRATORY: overall relatively clear to auscultation bilaterally GASTROINTESTINAL: Abdomen protuberant and obese, soft, non-tender, nondistended. Bowel sounds present. MUSCULOSKELETAL: Extremities without clubbing, cyanosis, or edema. No obvious deformities. NEUROLOGICAL: Alert and oriented to person place time and situation moves all 4 extremities - Urinary Catheter Management Indwelling Urethral Catheter Cath placed during this visit: yes Reason for continuing: Hourly intake/output Insertion date: 05/03/18 Insertion time: 02:00 Results - Labs CBC & Chem 7: 05/08/18 06:32 05/08/18 06:32 Laboratory Results - last 24 hr 05/08/18 05/08/18 05/08/18 06:32 06:32 06:32 WBC 8.2 RBC 3.45 L Hgb 11.1 L Hct 32.6 L MCV 94.4 MCH 32.1 MCHC 34.1 RDW 15.9 Plt Count 184 MPV 9.8 Neut % (Auto) 77.4 H Lymph % (Auto) 13.0 [place] % (Auto) 9.4 H Eos % (Auto) 0.1 Baso % (Auto) 0.1 Neut # (Auto) 6.3 Lymph # (Auto) 1.1 [place] # (Auto) 0.8 Eos # (Auto) 0.0 Baso # (Auto) 0.0 WBC Differential . Differential Comment Auto diff final Sodium 137 Potassium 3.5 Chloride 95 L Carbon Dioxide 35.8 H Anion Gap 6 BUN 20 H Creatinine 1.09 Estimated GFR 68 L Random Glucose 116 H Calcium 8.4 L Free T4 1.04 Total T3 95 Assessment and Plan - Plan 1. Severe hypothyroidism with myxedema coma On Synthroid 250 mcg IV daily for 3 doses per endocrinology. Home dose Synthroid 75 mcg p.o. daily. Hydrocortisone 100 mg IV every 8 hours 2. Marijuana abuse Acute agitated deliriumresolved Acute encephalopathy, multifactorial also secondary to hypercapnia resolved This agitated delirium presentation can be seen with severe hypothyroidism. MRI brain with no acute findings. Old lacunar infarct present. Largely resolved delirium. Intermittently confused and disoriented. Today patient seems to be alert and oriented to person place and time 3. Acute hypoxemic and hypercapnic respiratory failure previously on BiPAP and on nasal cannula Acute COPD exacerbation Pulmonary edema Chest x-ray with pulmonary edema. Will continue diuresis. Added NTG paste. DuoNeb every 4 hours. Albuterol every 2 hours as needed. Currently on nasal cannula at 2 L with 98% room air. Obtain and walk fit test. Continue Symbicort 80/4.52 puffs inhaled twice daily. 4. Coronary artery disease with prior stent Pulmonary edema Hypertension There is potential for ischemia during treatment with IV Synthroid. I do not see any ischemic changes on EKG currently. He does not complain of any chest pain His initial troponin is 0.04. Serial cardiac enzymes are negative. Echo showed EF of 30-35% and will add lisinopril to her regimen today. Continue aspirin 81 mg daily. Continue hydralazine 50 mg p.o. 3 times daily. Continue nitroglycerin as per above. Diuresing with Lasix. With the hydralazine he may need a concomitant loop diuretic to prevent pulmonary edema. Could consider alternate agent for hypertension management. Will start lisinopril. Will use labetalol prn if needed. Had prior NSTEMI with cardiac cath 09/29/13 with bare metal stent to 2nd OM by Dr. Vale. (20% L main, 30% mid LAD, 30% ostial OM lesion) 5. AnxietyXanax as needed. PROPH: SCDs and heparin 5000 subcu every 12 for DVT prophylaxis. Famotidine for stress ulcer prophylaxis ACCESS: Peripheral IV providing adequate access at this time.
[2018-05-08] MEDS: Lisinopril 10 MG Tablet PO SCH (15:35)
[2018-05-08] MEDS: ALPRAZolam 0.5 MG Tablet PO PRN (18:23)
[2018-05-09] MEDS: Heparin - SQ 10,000 UNITS/ML Vial SQ SCH ×2 (02:28→13:37)
[2018-05-09] MEDS: Levothyroxine 75 MCG Tablet PO SCH (06:10)
[2018-05-09] MEDS: Hydrocortisone Sod Succinate 100 MG Vial IV.PUSH SCH (06:10)
[2018-05-09] MEDS: Levothyroxine 100 MCG Tablet PO SCH (06:10)
[2018-05-09] MEDS: Famotidine PF Inj 20 MG/2 ML Vial IV.PUSH SCH ×2 (09:19→21:06)
[2018-05-09] MEDS: Senna/Docusate Sodium 8.6/50 MG Tablet PO SCH ×2 (09:20→21:06)
[2018-05-09] MEDS: Lisinopril 10 MG Tablet PO SCH (09:20)
[2018-05-09] MEDS: Furosemide 40 MG Tablet PO SCH (09:20)
[2018-05-09] MEDS: ALPRAZolam 0.5 MG Tablet PO PRN ×2 (09:20→17:26)
[2018-05-09] MEDS: hydrALAZINE 50 MG Tablet PO SCH ×3 (09:20→17:23)
[2018-05-09] MEDS: Budesonide-Formoterol 80/4.5 MCG 6.9 GM Inhaler INH SCH ×2 (09:21→21:16)
--- NOTE | 2018-05-09 10:35 | P.PNIM ---
Subjective Interval history: Pt seen and examined for f/u of myxedema coma. He has no complaints and reports he is feeling well. Denies CP, SOB, abdominal pain, N/V. Wants to go home. Physical Exam Vital signs: Vital Signs 05/08/18 12:00 05/08/18 16:00 05/08/18 20:00 Temperature 97.9 F 97.7 F 98.0 F Pulse Rate 67 72 78 Respiratory Rate 20 20 20 Blood Pressure 161/87 H 175/95 H 118/78 Pulse Oximetry 93 L 96 93 L 05/09/18 00:00 05/09/18 04:00 Temperature 97.6 F 97.7 F Pulse Rate 79 82 Respiratory Rate 18 18 Blood Pressure 165/79 H 107/61 Pulse Oximetry 93 L 92 L Intake & Output 05/08/18 05/09/18 05/09/18 18:59 06:59 18:59 Intake Total 720 / 720 720 / 720 Balance 720 / 720 720 / 720 Weight 122.5 kg Intake: Oral 720 / 720 720 / 720 Other: # Voids 2 2 Date of Last Bowel Movement 05/08/18 Narrative: GENERAL: Obese male resting in bed in [facility]. SKIN: Warm and dry. HEENT: AT/NC. Pupils equal and round. Some mild periorbital swelling. MMM. HEART: RRR no m/r/g. LUNGS: CTAB without wheezes or crackles. ABDOMEN: +BS, soft, NT, ND. EXTREMITIES: No LE edema. NEURO: Awake and alert. Nonfocal. PSYCH: Appropriate mood and affect. - Urinary Catheter Management Indwelling Urethral Catheter Cath placed during this visit: yes Reason for continuing: Hourly intake/output Insertion date: 05/03/18 Insertion time: 02:00 Results - Labs CBC & Chem 7: 05/08/18 06:32 05/08/18 06:32 Assessment and Plan - Assessment (1) Myxedema Code(s): E03.9 - Hypothyroidism, unspecified Status: Acute (2) Hypothyroidism (acquired) Code(s): E03.9 - Hypothyroidism, unspecified Status: Acute (3) CAD in [place] artery Code(s): I25.10 - Atherosclerotic heart disease of [place] coronary artery without angina pectoris Status: Acute - Plan 63 year old male with history of CAD, anxiety, and HTN admitted on 04/30 for myxedema coma. 1. Myxdema coma - Pt presented with altered mental status and audiovisual hallucinations - MRI negative for acute findings (old lacunar infarct present) - Delirium has largely resolved - TSH noted to be >100 - Endocrinology following and patient has completed IV loading dose of Synthroid - Continue Synthroid 175 mcg daily - Change to PO prednisone and taper - Can D/C Cytomel 2. Acute hypoxic respiratory failure, resolved - Flash pulmonary edema seen on CXR 05/03 - Echo with EF 30-35% - Bronchodilators PRN - Supplemental O2 - Continue Symbicort - Continue Lasix 40 mg daily 3. CAD - w/ BMS to second OM (2012, Dr. Vale) - Echo 05/03 showed EF of 30-35% with diffuse global hypokinesis - Continue ASA and Lisinopril - Add Spironolactone 4. HTN - Continue hydralazine and Lisinopril - Labetolol PRN 5. Anxiety - Xanax PRN DVT prophylaxis: SCDs, heparin Discharge Planning: When cleared by endocrinology, attempted to call today. Will try again tomorrow
[2018-05-09] MEDS: Spironolactone 25 MG Tablet PO SCH (17:43)
[2018-05-09] MEDS ORDERED: predniSONE 20 MG Tablet PO SCH (21:00)
[2018-05-09] MEDS ORDERED: Hydrocortisone Sod Succinate 100 MG Vial IV.PUSH SCH (21:00)
[2018-05-09] MEDS: predniSONE 10 MG Tablet PO SCH (21:06)
[2018-05-10] MEDS: ALPRAZolam 0.5 MG Tablet PO PRN ×3 (02:57→20:51)
[2018-05-10] MEDS: Heparin - SQ 10,000 UNITS/ML Vial SQ SCH ×2 (02:57→14:24)
[2018-05-10] MEDS: Levothyroxine 75 MCG Tablet PO SCH (06:51)
[2018-05-10] MEDS: Levothyroxine 100 MCG Tablet PO SCH (06:51)
[2018-05-10] MEDS ORDERED: Lisinopril 20 MG Tablet PO SCH (09:00)
[2018-05-10] MEDS ORDERED: Lisinopril 10 MG Tablet PO SCH (09:00)
[2018-05-10 09:10] LABS: Calcium 8.6 mg/dL (8.5-10.1); Carbon Dioxide 34.6 meq/L (21.0-32.0)
[2018-05-10] MEDS: Famotidine PF Inj 20 MG/2 ML Vial IV.PUSH SCH ×2 (09:12→20:52)
[2018-05-10] MEDS: Lisinopril 20 MG Tablet PO SCH (09:13)
[2018-05-10] MEDS: hydrALAZINE 50 MG Tablet PO SCH ×3 (09:13→17:32)
[2018-05-10] MEDS: Senna/Docusate Sodium 8.6/50 MG Tablet PO SCH ×2 (09:13→20:51)
[2018-05-10] MEDS: predniSONE 10 MG Tablet PO SCH ×2 (09:13→20:51)
[2018-05-10 09:14] LABS: Free T4 (Free Thyroxine) 1.16 ng/dL (0.76-1.46)
[2018-05-10] MEDS: Furosemide 40 MG Tablet PO SCH (09:14)
[2018-05-10] MEDS: Budesonide-Formoterol 80/4.5 MCG 6.9 GM Inhaler INH SCH ×2 (09:14→20:52)
[2018-05-10] MEDS: Spironolactone 25 MG Tablet PO SCH (09:14)
--- NOTE | 2018-05-10 13:17 | P.PNIM ---
Subjective Interval history: Pt seen and examined for f/u of myxedema. Reports he has no complaints. Feels he is thinking clearly. States he has been researching thyroid disease and in hindsight can think of symptoms he's had for years. Denies any significant swelling of his tongue and his periorbital edema has markedly decreased since admission. Denies CP, SOB, abdominal pain, N/V. Physical Exam Vital signs: Vital Signs 05/09/18 16:00 05/09/18 20:00 05/10/18 00:00 Temperature 98 F 97.8 F 98.0 F Pulse Rate 78 76 69 Respiratory Rate 20 18 15 Blood Pressure 140/79 176/80 H 120/70 Pulse Oximetry 94 L 94 L 96 05/10/18 02:42 Temperature 98.0 F Pulse Rate 73 Respiratory Rate 16 Blood Pressure 129/68 Pulse Oximetry 95 Intake & Output 05/09/18 05/10/18 05/10/18 18:59 06:59 18:59 Intake Total 480 / 480 Output Total 850 / 850 Balance -370 / -370 Weight 122.5 kg Intake: Oral 480 / 480 Output: Urine 850 / 850 Other: Post Void Residual 200 # Voids 1 Date of Last Bowel Movement 05/08/18 05/09/18 Narrative: GENERAL: Obese male resting in bed in [facility]. SKIN: Warm and dry. HEENT: AT/NC. Pupils equal and round. Some mild periorbital swelling. MMM. Tongue not significantly enlarged. HEART: RRR no m/r/g. LUNGS: CTAB without wheezes or crackles. ABDOMEN: +BS, soft, NT, ND. EXTREMITIES: No LE edema. NEURO: Awake and alert. Nonfocal. PSYCH: Appropriate mood and affect. - Urinary Catheter Management Indwelling Urethral Catheter Cath placed during this visit: yes Reason for continuing: Hourly intake/output Insertion date: 05/03/18 Insertion time: 02:00 Results - Labs CBC & Chem 7: 05/08/18 06:32 05/10/18 08:01 Laboratory Results - last 24 hr 05/10/18 05/10/18 08:01 08:01 Sodium 137 Potassium 4.0 Chloride 98 Carbon Dioxide 34.6 H Anion Gap 4 L BUN 23 H Creatinine 1.15 Estimated GFR 64 L Random Glucose 121 H Calcium 8.6 TSH 2.350 Free T4 1.16 Assessment and Plan - Assessment (1) Myxedema Code(s): E03.9 - Hypothyroidism, unspecified Status: Acute (2) Hypothyroidism (acquired) Code(s): E03.9 - Hypothyroidism, unspecified Status: Acute (3) CAD in [place] artery Code(s): I25.10 - Atherosclerotic heart disease of [place] coronary artery without angina pectoris Status: Acute - Plan 63 year old male with history of CAD, anxiety, and HTN admitted on 04/30 for myxedema coma. 1. Myxdema coma - Pt presented with altered mental status and audiovisual hallucinations - MRI negative for acute findings (old lacunar infarct present) - Delirium has largely resolved - TSH noted to be >100 on admission, now down to 2.35 - Endocrinology following and patient has completed IV loading dose of Synthroid - Continue Synthroid 175 mcg daily, caution with background of CAD - Change to PO prednisone and taper - Cytomel D/C'd yesterday 2. Acute hypoxic respiratory failure, resolved - Flash pulmonary edema seen on CXR 05/03 - Echo with EF 30-35% - Bronchodilators PRN - Supplemental O2 - Continue Symbicort - Continue Lasix 40 mg daily 3. CAD - w/ BMS to second OM (2012, Dr. Vale) - Echo 05/03 showed EF of 30-35% with diffuse global hypokinesis - Continue ASA and Lisinopril - Add Spironolactone 4. HTN - BPs overall improved - Continue hydralazine and Lisinopril - Labetolol PRN 5. Anxiety - Xanax PRN DVT prophylaxis: SCDs, heparin Discussed Condition With: The patient Discharge Planning: When cleared by endocrinology, attempted to call this weekend but not on. Hopefully we can have a better disposition by tomorrow
[2018-05-11] MEDS: Levothyroxine 75 MCG Tablet PO SCH (05:15)
[2018-05-11] MEDS: Levothyroxine 100 MCG Tablet PO SCH (05:15)
[2018-05-11] MEDS: Heparin - SQ 10,000 UNITS/ML Vial SQ SCH (05:15)
[2018-05-11] MEDS: ALPRAZolam 0.5 MG Tablet PO PRN ×2 (05:15→15:16)
[2018-05-11] MEDS: predniSONE 10 MG Tablet PO SCH (09:21)
[2018-05-11] MEDS: Spironolactone 25 MG Tablet PO SCH (09:21)
[2018-05-11] MEDS: hydrALAZINE 50 MG Tablet PO SCH ×2 (09:21→13:38)
[2018-05-11] MEDS: Famotidine PF Inj 20 MG/2 ML Vial IV.PUSH SCH (09:22)
[2018-05-11] MEDS: Furosemide 40 MG Tablet PO SCH (09:22)
[2018-05-11] MEDS: Lisinopril 20 MG Tablet PO SCH (09:23)
[2018-05-11] MEDS: Budesonide-Formoterol 80/4.5 MCG 6.9 GM Inhaler INH SCH (09:23)
[2018-05-11] MEDS ORDERED: Lisinopril 20 MG Tablet PO ONE (12:21)
[2018-05-11] MEDS: Senna/Docusate Sodium 8.6/50 MG Tablet PO SCH (12:23)
--- NOTE | 2018-05-11 12:44 | P.PNIM ---
Subjective Interval history: Pt seen and examined for f/u severe hypothyroidism, myxedema. Reports he is doing well. Has no complaints. Denies CP, SOB, abdominal pain, N/V. He is tolerating PO and ambulating. Physical Exam Vital signs: Vital Signs 05/10/18 16:00 05/10/18 20:00 05/11/18 00:00 Temperature 98.3 F 97.8 F 97.6 F Pulse Rate 94 H 84 72 Respiratory Rate 20 18 18 Blood Pressure 206/92 H 180/100 H 159/90 H Pulse Oximetry 94 L 96 97 05/11/18 04:00 05/11/18 06:46 05/11/18 08:00 Temperature 97.2 F L 98.2 F Pulse Rate 72 71 Respiratory Rate 20 18 Blood Pressure 182/105 H 170/91 H 175/107 H Pulse Oximetry 97 05/11/18 12:00 Temperature 97.7 F Pulse Rate 74 Respiratory Rate 18 Blood Pressure 157/74 H Pulse Oximetry 93 L Intake & Output 05/10/18 05/11/18 05/11/18 18:59 06:59 18:59 Intake Total 480 / 480 240 / 240 Output Total 800 / 800 Balance -320 / -320 240 / 240 Weight 120.4 kg Intake: Oral 480 / 480 240 / 240 Output: Urine 800 / 800 Other: # Voids 2 Date of Last Bowel Movement 05/09/18 # Bowel Movements 1 Narrative: GENERAL: Obese male resting in bed in [place]. SKIN: Warm and dry. HEENT: AT/NC. Pupils equal and round. Some mild periorbital swelling. MMM. Tongue not significantly enlarged. HEART: RRR no m/r/g. LUNGS: CTAB without wheezes or crackles. ABDOMEN: +BS, soft, NT, ND. EXTREMITIES: No LE edema. NEURO: Awake and alert. Nonfocal. PSYCH: Appropriate mood and affect. - Urinary Catheter Management Indwelling Urethral Catheter Cath placed during this visit: yes Reason for continuing: Hourly intake/output Insertion date: 05/03/18 Insertion time: 02:00 Results - Labs CBC & Chem 7: 05/08/18 06:32 05/10/18 08:01 Assessment and Plan - Assessment (1) Myxedema Code(s): E03.9 - Hypothyroidism, unspecified Status: Acute (2) Hypothyroidism (acquired) Code(s): E03.9 - Hypothyroidism, unspecified Status: Acute (3) CAD in [place] artery Code(s): I25.10 - Atherosclerotic heart disease of [place] coronary artery without angina pectoris Status: Acute - Plan 63 year old male with history of CAD, anxiety, and HTN admitted on 04/30 for myxedema coma. 1. Myxedema coma - Pt presented with altered mental status and audiovisual hallucinations - MRI negative for acute findings (old lacunar infarct present) - Delirium has largely resolved - TSH noted to be >100 on admission, now down to 2.35 - Endocrinology following and patient has completed IV loading dose of Synthroid - Continue Synthroid 175 mcg daily, caution with background of CAD - Prednisone taper since patient had received IV hydrocortisone during majority of hospitalization - D/C Dr. Panchal who agrees patient can be discharged with follow-up in a week and repeat TSH in 6 wks 2. Acute hypoxic respiratory failure, resolved - Flash pulmonary edema seen on CXR 05/03 - Echo with EF 30-35% - Bronchodilators PRN - Supplemental O2 - Continue Symbicort - Continue Lasix 40 mg daily 3. CAD - w/ BMS to second OM (2012, Dr. Vale) - Echo 05/03 showed EF of 30-35% with diffuse global hypokinesis - Continue ASA and Lisinopril - Continue Spironolactone 4. HTN - BPs elevated overnight - Increase Lisinopril to 40 mg - Continue Spironolactone 25 mg and Hydralazine 50 mg TID - Labetolol PRN 5. 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
--- NOTE | 2018-05-13 15:14 | P.DS ---
Date of admission: 04/30/18 00:15 Primary care physician: No Primary Care Physician Attending physician on discharge: Kaylah Hamilton Anticipated date of discharge: 05/11/18 Brief History from admission: 63-year-old male presents to the emergency department for evaluation of audiovisual hallucinations. The hallucinations have been present for approximately 4-6 weeks. The patient's girlfriend reports that he has been "off " for the past couple of weeks and she found him in a very bizarre state when returning from a trip. 911 was called at that time however the patient refused to come for evaluation. Tonight, the patient comes of his own volition for further evaluation. He denies any pain. No chest pain or shortness of breath. No abdominal pain. No nausea/vomiting/diarrhea. Endorses a 95 pound weight gain over the past 6 months. No fevers/chills. No lateralizing signs/symptoms. DS: Diagnosis - Discharge Diagnosis (1) Myxedema Status: Acute (2) Hypothyroidism (acquired) Status: Acute (3) CAD in kake artery Status: Acute DS: Medications - Discharge Medications Prescriptions: budesonide-formoterol [Symbicort] 2 puff INH BID #1 g clonidine HCl [Catapres] 0.1 mg PO Q8HR #90 tab famotidine [Pepcid] 20 mg PO BID #60 tab furosemide 40 mg PO DAILY #30 tab hydralazine 50 mg PO TID #90 tab levothyroxine [Synthroid] 75 mcg PO DAILY@0600 #30 tab levothyroxine [Synthroid] 100 mcg PO DAILY@0600 #30 tab lisinopril 40 mg PO DAILY #30 tab prednisone See Taper PO DIRECTED #20 tab spironolactone [Aldactone] 25 mg PO DAILY #30 tab DS: Summary Hospital Course: 63 year old male with history of CAD, anxiety, and HTN admitted on 04/30 for myxedema coma with TSH >100 and altered mentation and unintentional weight gain. Retail Sales Manager was consulted and patient was treated with IV Synthroid and steroids. His delirium resolved with thyroid supplementation and he was transitioned to PO Synthroid. He had an episode of flash pulmonary edema on 05/03 ; 2d echo showed EF 30-35% and patient was started on Lisinopril and Spironolactone. His blood pressure was elevated and difficult to control throughout admission despite adding on multiple agents. On the day of discharge , his blood pressure improved when measured manually with an appropriately sized large cuff. He was discharged in stable condition on 05/11. - Time Spent with Patient Total time spent providing and/or coordinating discharge services: Less than 30 minutes - Quality: VTE Deep Vein Thrombosis/Pulmonary Embolism Present on Admission: No Exam Narrative: GENERAL: Obese male resting in bed in NAD. SKIN: Warm and dry. HEENT: AT/NC. Pupils equal and round. Some mild periorbital swelling. MMM. Tongue not significantly enlarged. HEART: RRR no m/r/g. LUNGS: CTAB without wheezes or crackles. ABDOMEN: +BS, soft, NT, ND. EXTREMITIES: No LE edema. NEURO: Awake and alert. Nonfocal. PSYCH: Appropriate mood and affect. Results Procedures completed during hospitalization: None Completed studies during hospitalization: Echocardiogram 05/03: EF 30-35% - Impressions ITS Impressions Head MRI 05/03/18 00:00 CONCLUSION: 1. No acute findings. Chronic white matter ischemic changes. No recent infarct or mass effect. Small lacunar infarct on the right. Chest X-Ray 05/03/18 00:26 CONCLUSION: New bilateral diffuse interstitial pulmonary opacity suggesting new pulmonary edema. Discharge Plan - Discharge Disposition Patient Disposition: 01 Discharge Home - Discharge Condition Condition: Stable - Discharge Order Discharge Orders: Discharge Order (Routine); Ordered 05/11/18 Ordered By: Kaylah Hamilton - Discharge Details Anticipated Discharge Date: 05/11/18 - Physicians Team Primary Care Provider: Primary Care Physici,No Attending Provider: Kaylah Hamilton Other Providers: Aidan Orozco MD ; Pradip Panchal MD
== END 2018-05-11 20:50 | disposition home or self-care (01) ==
LOC: NEPD 15:49 → NEDA 04-30 00:15 → N06 04-30 07:20 → N03 05-03 00:53 → N04 05-07 16:25
PROVIDERS: ADMIT Family Medicine; ATTEND Family Medicine
DX: J81.1 Chronic pulmonary edema; Z95.5 Presence of coronary angioplasty implant and graft; G93.40 Encephalopathy, unspecified; Z68.37 Body mass index [BMI] 37.0-37.9, adult; E66.01 Morbid (severe) obesity due to excess calories; J96.02 Acute respiratory failure with hypercapnia; F32.9 Major depressive disorder, single episode, unspecified; F41.9 Anxiety disorder, unspecified; Z86.73 Personal history of transient ischemic attack (TIA), and cerebral infarction without residual deficits; H05.229 Edema of unspecified orbit; F17.210 Nicotine dependence, cigarettes, uncomplicated; I10 Essential (primary) hypertension; H91.91 Unspecified hearing loss, right ear; I25.10 Atherosclerotic heart disease of native coronary artery without angina pectoris; J96.01 Acute respiratory failure with hypoxia; Z78.1 Physical restraint status; E03.5 Myxedema coma; I25.2 Old myocardial infarction; J44.1 Chronic obstructive pulmonary disease with (acute) exacerbation; F12.10 Cannabis abuse, uncomplicated; Z79.82 Long term (current) use of aspirin; F05 Delirium due to known physiological condition

== ENCOUNTER 2018-06-05 22:00 | Inpatient (IN) ==
[2018-06-05] MEDS ORDERED: Sod Chloride 0.9% Inj 1,000 ML IV.CONT SCH (22:15)
--- NOTE | 2018-06-05 22:30 | ED ---
HPI General Chief Complaint: Nausea/Vomiting/Diarrhea Stated Complaint: abd pain Time Seen by Provider: 06/05/18 22:08 Source: patient and EMS Mode of arrival: EMS Limitations: no limitations History of Present Illness HPI narrative: 63-year-old male presents to the emergency department for complaint of abdominal pain back pain with vomiting diarrhea diaphoresis and noted by paramedics to be hypotensive upon their arrival. Patient received a liter of normal saline in route to the hospital was improvement of blood pressure. Patient states that his pain is 7/10 in intensity and radiates into his back. Patient is noted throbbing nature to his abdominal pain. Patient states he has been having copious diarrhea and vomiting since starting new medications that he was told by the pharmacist interact adversely with one another. Patient was recently hospitalized 05/03/18 with myxedema coma. Patient has been doing fairly well subsequently although he has been very tired and fatigued states he has been bedridden for the past 2 weeks. Patient does not report any fever does not complain of any chest pain at this time has some shortness of breath continues to smoke cigarettes daily. MD complaint: abdominal pain, flank pain and other (back --left flank and midscapular) Onset (ago): minute(s) Pain Consistency: constant Location: periumbilical and L flank Severity: severe Severity scale (1-10): 7 Quality: aching (throbbing) Radiation: L flank Migration to: L flank Relieving factors: nothing Exacerbating factors: nothing Context: other (recent hospitalization) Associated symptoms: nausea, vomiting, diarrhea and other (weakness; near syncope EMS: SBP:60mmHg) Treatments prior to arrival: other (1 L NS) Related Data Home Medications Medication Instructions Recorded Confirmed aspirin 81 mg PO DAILY 06/05/18 06/05/18 clonidine HCl 0.1 mg PO TID 06/05/18 06/05/18 diphenhydramine HCl 25 mg PO BID PRN 06/05/18 06/05/18 Previous Rx's Medication Instructions Recorded famotidine [Pepcid] 20 mg PO BID #60 tab 05/11/18 furosemide 40 mg PO DAILY #30 tab 05/11/18 hydralazine 50 mg PO TID #90 tab 05/11/18 levothyroxine [Synthroid] 75 mcg PO DAILY@0600 #30 tab 05/11/18 levothyroxine [Synthroid] 100 mcg PO DAILY@0600 #30 tab 05/11/18 lisinopril 40 mg PO DAILY #30 tab 05/11/18 spironolactone [Aldactone] 25 mg PO DAILY #30 tab 05/11/18 Allergies Allergy/AdvReac Type Severity Reaction Status Date / Time pollen extracts Allergy Mild Congestion Verified 06/05/18 22:06 Review of Systems ROS: all other systems reviewed are negative [facility] Medical History Medical History Hypothyroid (Acute) Anxiety (Acute) CAD (coronary artery disease) (Acute) Deafness in right ear (Acute) Hypertension (Acute) Surgical history unknown (Acute) Family History Family History Other Family history unknown Social History Social History Substance History: No History of Abuse Second Hand Smoke Exposure: Yes Smoking Status: Current every day smoker Tobacco Type: Cigarettes How Often Do You Have a Drink Containing Alcohol: Never Recent Travel in [place] within the Last 8 Weeks: No Recent Out of Country Travel within the Last 8 Weeks: No Exam Narrative Exam Narrative: GENERAL: Well-nourished, well-developed patient. Attention ill- appearing male mildly diaphoretic diminished peripheral pulses to palpation. GCS 15 SKIN: Focused skin assessment cool/mildly diaphoretic. HEAD: Normocephalic. EYES: No scleral icterus. No injection or drainage. NECK: Supple, trachea midline. No JVD or lymphadenopathy. CARDIOVASCULAR: Regular rate and rhythm without murmurs, gallops, or rubs. RESPIRATORY: Breath sounds equal bilaterally. No accessory muscle use. GASTROINTESTINAL: Abdomen soft, tender periumbilically, nondistended. MUSCULOSKELETAL: No cyanosis, or edema. BACK: Nontender without obvious deformity. No CVA tenderness. Course Reevaluation(s) Reevaluation #1: Discussed with Dr. Royal who will admit patient to her service Time: 02:02 Initial Documented Vital Signs Temperature 98.2 F 06/05/18 22:27 Pulse Rate 88 06/05/18 22:27 Respiratory Rate 16 06/05/18 22:27 Blood Pressure 142/78 H 06/05/18 22:27 Pulse Oximetry 100 06/05/18 22:27 Last Documented Vital Signs Temperature 98.2 F 06/05/18 22:27 Pulse Rate 90 06/05/18 23:28 Respiratory Rate 16 06/05/18 23:28 Blood Pressure 140/64 06/05/18 23:28 Pulse Oximetry 100 06/05/18 23:28 Critical Care Time Critical Care Time: Yes Total Critical Care Time: 35 Attestation: Aggregate critical care time was 35 minutes. Time to perform other separately billable procedures was not included in the critical care time. My time did not include minutes spent treating any other patients simultaneously or on activities that did not directly contribute to the patient's treatment. The services I provided to this patient were to treat and/or prevent clinically significant deterioration that could result in: Hypovolemic shock, cardiogenic shock, arrhythmia, I provided critical care services requiring my management, as noted below: Chart data review, documentation time, medication orders and management, vital sign assessments/reviewing monitor data, ordering and reviewing lab tests, ordering and interpreting/reviewing x-rays and diagnostic studies, care of the patient and discussion of the patient with the admitting physicians. Medical Decision Making MDM Narrative Medical decision making narrative: 63-year-old male with near syncope generalized weakness hypotension with severe abdominal pain radiating into his back presently pain has decreased to 7/10 in intensity he has received 1 L of normal saline by EMS blood pressure of 60 mmHg at home patient appears cool and attention anxious with periumbilical abdominal pain is reproducible to palpation patient's girth makes it difficult to assess for mass unable to palpate radial dorsalis pedis pulses. Patient recent hospitalization for myxedema coma has known history of CAD tobacco abuse Patient placed on cardiac catheterization technologist IV access obtained specimens collected and sent for resulting discussed with patient need for imaging of the aorta without availability of his BUN and creatinine patient states proceed with imaging concern for possible renal insufficiency due to also complaint of new medications that reportedly may be adversely interacting with one another per drug interaction via pharmacist as well as vomiting and diarrhea. Patient administered additional liter of normal saline Patient identified by CTA thoracic and abdominal aorta no dissection no aneurysm patient does have acute renal failure with a BUN of 70 and a creatinine of 3.15 additional IV fluids administered. EKG is sinus rhythm with no acute ST elevation cardiac enzymes are found to be in normal range of the lab values are grossly within normal limits. Medical Screen Exam Complete: Yes Emergency Medical Condition: Yes Differential Diagnosis Differential Diagnosis: Generalized weakness, abdominal pain abdominal aortic aneurysm leak, dissection, ACS, CA, ischemic bowel, sepsis, arrhythmia, electrolyte disturbance, UTI, recurrent Medical Records Medical records reviewed: Yes I reviewed the patient's medical records. Lab Data Lab results reviewed: Yes I reviewed the patient's lab results. Lab results narrative: Acute renal failure BUN 70 creatinine 3.15 with bicarb of 20.8 Result diagrams: 06/05/18 22:15 06/05/18 22:15 Lab Results 06/05/18 06/05/18 06/05/18 Range/Units 22:15 22:15 22:15 WBC (4.0-11.0) th/mm3 RBC (4.50-5.90) mil/mm3 Hgb (13.0-17.0) gm/dL Hct (39.0-51.0) % MCV (80.0-100.0) fL MCH (27.0-34.0) pg MCHC (32.0-36.0) % RDW (11.6-17.2) % Plt Count (150-450) th/mm3 MPV (7.0-11.0) fL Neut % (Auto) (16.0-70.0) % Lymph % (Auto) (9.0-44.0) % Camp % (Auto) (0.0-8.0) % Eos % (Auto) (0.0-4.0) % Baso % (Auto) (0.0-2.0) % Neut # (Auto) (1.8-7.7) th/mm3 Lymph # (Auto) (1.0-4.8) th/mm3 Camp # (Auto) (0.0-0.9) th/mm3 Eos # (Auto) (0.0-0.4) th/mm3 Baso # (Auto) (0.0-0.2) th/mm3 WBC Differential Differential Comment PT 11.4 (9.8-11.6) sec INR 1.1 Ratio APTT 32.7 H (24.3-30.1) sec Sodium (136-145) meq/L Potassium (3.5-5.1) meq/L Chloride (98-107) meq/L Carbon Dioxide (21.0-32.0) meq/L Anion Gap (5-15) meq/L BUN (7-18) mg/dL Creatinine (0.60-1.30) mg/dL Estimated GFR (>89) mL/min Random Glucose (74-106) mg/dL Lactic Acid 1.7 (0.4-2.0) mmol/L Calcium (8.5-10.1) mg/dL Magnesium (1.5-2.5) mg/dL Total Bilirubin (0.2-1.0) mg/dL AST (15-37) U/L ALT (12-78) U/L Alkaline Phosphatase (45-117) U/L Total Creatine Kinase 37 L (39-308) U/L Troponin I Less than 0.02 L (0.02-0.05) ng/mL Total Protein (6.4-8.2) g/dL Albumin (3.4-5.0) g/dL Lipase (73-393) U/L TSH (0.358-3.740) uIU/mL Urine Color (Yellw/Straw) Urine Clarity (Clear) Urine pH (5.0-8.5) Ur Specific [place] (1.002-1.035) Urine Protein (Neg-Trace) mg/dL Urine Glucose (UA) (Negative) mg/dL Urine Ketones (Negative) mg/dL Urine Occult Blood (Negative) Urine Nitrate (Negative) Urine Bilirubin (Negative) Urine Urobilinogen (Less than 2) mg/dL Ur Leukocyte Esterase (Negative) Urine RBC (0-3) /hpf Urine WBC (0-5) /hpf Urine Mucus (Occasional) /lpf Micro UA Comment Ur Microscopic Review Urine Culture Comments Blood Type Blood Type Recheck Antibody Screen 06/05/18 06/05/18 06/05/18 Range/Units 22:15 22:15 22:15 WBC 9.3 (4.0-11.0) th/mm3 RBC 3.40 L (4.50-5.90) mil/mm3 Hgb 10.6 L (13.0-17.0) gm/dL Hct 31.2 L (39.0-51.0) % MCV 91.9 (80.0-100.0) fL MCH 31.2 (27.0-34.0) pg MCHC 34.0 (32.0-36.0) % RDW 16.1 (11.6-17.2) % Plt Count 555 H D (150-450) th/mm3 MPV 8.9 (7.0-11.0) fL Neut % (Auto) 80.6 H (16.0-70.0) % Lymph % (Auto) 9.5 (9.0-44.0) % Camp % (Auto) 5.9 (0.0-8.0) % Eos % (Auto) 3.2 (0.0-4.0) % Baso % (Auto) 0.8 (0.0-2.0) % Neut # (Auto) 7.5 (1.8-7.7) th/mm3 Lymph # (Auto) 0.9 L (1.0-4.8) th/mm3 Camp # (Auto) 0.5 (0.0-0.9) th/mm3 Eos # (Auto) 0.3 (0.0-0.4) th/mm3 Baso # (Auto) 0.1 (0.0-0.2) th/mm3 WBC Differential . Differential Comment Auto diff final PT (9.8-11.6) sec INR Ratio APTT (24.3-30.1) sec Sodium 127 L (136-145) meq/L Potassium 5.3 H (3.5-5.1) meq/L Chloride 93 L (98-107) meq/L Carbon Dioxide 20.8 L (21.0-32.0) meq/L Anion Gap 13 (5-15) meq/L BUN 70 H (7-18) mg/dL Creatinine 3.15 H (0.60-1.30) mg/dL Estimated GFR 20 L (>89) mL/min Random Glucose 116 H (74-106) mg/dL Lactic Acid (0.4-2.0) mmol/L Calcium 8.8 (8.5-10.1) mg/dL Magnesium (1.5-2.5) mg/dL Total Bilirubin 0.5 (0.2-1.0) mg/dL AST 41 H (15-37) U/L ALT 106 H (12-78) U/L Alkaline Phosphatase 291 H (45-117) U/L Total Creatine Kinase (39-308) U/L Troponin I (0.02-0.05) ng/mL Total Protein 7.9 (6.4-8.2) g/dL Albumin 2.6 L (3.4-5.0) g/dL Lipase 171 (73-393) U/L TSH (0.358-3.740) uIU/mL Urine Color (Yellw/Straw) Urine Clarity (Clear) Urine pH (5.0-8.5) Ur Specific [place] (1.002-1.035) Urine Protein (Neg-Trace) mg/dL Urine Glucose (UA) (Negative) mg/dL Urine Ketones (Negative) mg/dL Urine Occult Blood (Negative) Urine Nitrate (Negative) Urine Bilirubin (Negative) Urine Urobilinogen (Less than 2) mg/dL Ur Leukocyte Esterase (Negative) Urine RBC (0-3) /hpf Urine WBC (0-5) /hpf Urine Mucus (Occasional) /lpf Micro UA Comment Ur Microscopic Review Urine Culture Comments Blood Type O Positive Blood Type Recheck Required Antibody Screen Negative 06/05/18 06/05/18 06/06/18 Range/Units 22:15 22:15 01:20 WBC (4.0-11.0) th/mm3 RBC (4.50-5.90) mil/mm3 Hgb (13.0-17.0) gm/dL Hct (39.0-51.0) % MCV (80.0-100.0) fL MCH (27.0-34.0) pg MCHC (32.0-36.0) % RDW (11.6-17.2) % Plt Count (150-450) th/mm3 MPV (7.0-11.0) fL Neut % (Auto) (16.0-70.0) % Lymph % (Auto) (9.0-44.0) % Camp % (Auto) (0.0-8.0) % Eos % (Auto) (0.0-4.0) % Baso % (Auto) (0.0-2.0) % Neut # (Auto) (1.8-7.7) th/mm3 Lymph # (Auto) (1.0-4.8) th/mm3 Camp # (Auto) (0.0-0.9) th/mm3 Eos # (Auto) (0.0-0.4) th/mm3 Baso # (Auto) (0.0-0.2) th/mm3 WBC Differential Differential Comment PT (9.8-11.6) sec INR Ratio APTT (24.3-30.1) sec Sodium (136-145) meq/L Potassium (3.5-5.1) meq/L Chloride (98-107) meq/L Carbon Dioxide (21.0-32.0) meq/L Anion Gap (5-15) meq/L BUN (7-18) mg/dL Creatinine (0.60-1.30) mg/dL Estimated GFR (>89) mL/min Random Glucose (74-106) mg/dL Lactic Acid (0.4-2.0) mmol/L Calcium (8.5-10.1) mg/dL Magnesium 2.1 (1.5-2.5) mg/dL Total Bilirubin (0.2-1.0) mg/dL AST (15-37) U/L ALT (12-78) U/L Alkaline Phosphatase (45-117) U/L Total Creatine Kinase (39-308) U/L Troponin I (0.02-0.05) ng/mL Total Protein (6.4-8.2) g/dL Albumin (3.4-5.0) g/dL Lipase (73-393) U/L TSH 1.150 (0.358-3.740) uIU/mL Urine Color Straw (Yellw/Straw) Urine Clarity Clear (Clear) Urine pH 5.0 (5.0-8.5) Ur Specific [place] 1.014 (1.002-1.035) Urine Protein Negative (Neg-Trace) mg/dL Urine Glucose (UA) 50 (Negative) mg/dL Urine Ketones Trace (Negative) mg/dL Urine Occult Blood Small H (Negative) Urine Nitrate Negative (Negative) Urine Bilirubin Negative (Negative) Urine Urobilinogen Less than 2 (Less than 2) mg/dL Ur Leukocyte Esterase Negative (Negative) Urine RBC Less than 1 (0-3) /hpf Urine WBC 2 (0-5) /hpf Urine Mucus Few H (Occasional) /lpf Micro UA Comment Culture not ind Ur Microscopic Review Not Reportable Urine Culture Comments Culture not ind Blood Type Blood Type Recheck Antibody Screen Imaging Data Radiologist's impression: Chest X-Ray 06/05/18 22:08 CONCLUSION: No acute cardiopulmonary process. Thoracic Aorta CT 06/05/18 22:08 CONCLUSION: 1. Scattered athetotic calcification throughout the thoracoabdominal aorta with no aneurysmal disease. 2. Anatomic variant of the arch with the left vertebral emanating directly from the arch. Arch vessels are all patent. 3. 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 45-50% nonostial, long segment stenosis of the left renal artery. 4. Emphysematous changes most prominent in the apices. Faint groundglass density in the superior segment of the left lower lobe. Recommend noncontrasted CT scan of the chest in 3-6 months to ensure stability/resolution of this region. ECG Data Interpretation: EKG normal sinus rhythm no acute ST elevation injury pattern or ectopy noted Discharge Plan Discharge Disposition Patient Disposition: 30 Still Patient Discharge Condition Condition: Fair Discharge Details Diagnosis: Acute renal failure, Drug-induced nausea and vomiting, Gastroenteritis Physicians Team ED Provider: Jenny Reveles Primary Care Provider: Primary Care Adenike Barrios Rxs /Orders / Referrals /Forms Prescriptions: No Action clonidine HCl 0.1 mg Tablet 0.1 mg PO TID RF: 0 diphenhydramine HCl 25 mg Capsule 25 mg PO BID PRN (Reason: Allergic Reaction) RF: 0 aspirin 81 mg Tablet,Chewable 81 mg PO DAILY RF: 0 furosemide 40 mg Tablet 40 mg PO DAILY Qty: 30 RF: 0 spironolactone [Aldactone] 25 mg Tablet 25 mg PO DAILY Qty: 30 RF: 0 levothyroxine [Synthroid] 75 mcg Tablet 75 mcg PO DAILY@0600 Qty: 30 RF: 0 levothyroxine [Synthroid] 100 mcg Tablet 100 mcg PO DAILY@0600 Qty: 30 RF: 0 hydralazine 50 mg Tablet 50 mg PO TID Qty: 90 RF: 0 lisinopril 40 mg Tablet 40 mg PO DAILY Qty: 30 RF: 0 famotidine [Pepcid] 20 mg Tablet 20 mg PO BID Qty: 60 RF: 0 Discharge Interventions Interventions: Vital Signs Last Done: 06/05/18 23:28 Status ED Status: With Doctor
[2018-06-05 22:37] LABS: Baso # (Auto) 0.1 th/mm3 (0.0-0.2); Baso % (Auto) 0.8 % (0.0-2.0); Eos # (Auto) 0.3 th/mm3 (0.0-0.4); Eos % (Auto) 3.2 % (0.0-4.0); Hematocrit 31.2 % (39.0-51.0); Hemoglobin 10.6 gm/dL (13.0-17.0); Lymph # (Auto) 0.9 th/mm3 (1.0-4.8); Lymph % (Auto) 9.5 % (9.0-44.0); Mean Corpuscular Hemoglobin 31.2 pg (27.0-34.0); Mean Corpuscular Volume 91.9 fL (80.0-100.0); Mean Platelet Volume 8.9 fL (7.0-11.0); Mono # (Auto) 0.5 th/mm3 (0.0-0.9); Mono % (Auto) 5.9 % (0.0-8.0); Neut # (Auto) 7.5 th/mm3 (1.8-7.7); Neut % (Auto) 80.6 % (16.0-70.0); Platelet Count 555 th/mm3 (150-450); Red Cell Distribution Width 16.1 % (11.6-17.2); White Blood Count 9.3 th/mm3 (4.0-11.0)
[2018-06-05 22:49] LABS: Activated Partial Thrombo Time 32.7 sec (24.3-30.1); INR 1.1 Ratio; Prothrombin Time 11.4 sec (9.8-11.6)
[2018-06-05 23:10] LABS: Creatine Kinase 37 U/L (39-308)
--- NOTE | 2018-06-05 23:17 | CT ---
EXAM DATE: 06/05/2018 11:02 PM EDT AGE/SEX: 63 years / Male INDICATIONS: Evaluate for aneurysm. Abdominal pain. CLINICAL DATA: This is the patient's initial encounter. Patient reports that signs and symptoms have been present for 4 - 6 months and indicates a pain score of 10/10. MEDICAL/SURGICAL HISTORY: None. None. RADIATION DOSE: 9.81 CTDI (mGy) COMPARISON: No prior exams available for comparison. TECHNIQUE: Volumetric scanning was performed using a multi-row detector CT scanner during bolus infu jaiden of 100 ml Omnipaque 350 (iohexol) nonionic water-soluble contrast as a single exam dose. The d lenny was post processed with a variety of visualization algorithms including full volume maximum inten sity projection, multi-planar sliding thin slab reformation, curved planar reformation, and surface r endering techniques. Using automated exposure control and adjustment of the mA and/or kV according t o patient size, radiation dose was kept as low as reasonably achievable to obtain optimal diagnostic quality images. DICOM format image data is available electronically for review and comparison. FINDINGS: Thoracic aorta: Thoracic aorta is normal in diameter throughout its course without aneurysmal diseas e. Scattered athetotic calcification. Anatomic variant of the aortic arch with the left vertebral nataliya nating directly from the arch. Arch vessels are patent, however. Abdominal Aorta: Abdominal aorta is normal in caliber throughout its length with scattered atheroscle rotic calcification. There are ostial stenosis of both the celiac and SMA approaching 50%. There is a lso a nonostial, long segment stenosis of the left renal artery also approximately 50%. Right renal a rtery is patent Pelvis:. Scattered athetotic calcification in the iliac arteries but both iliacs are patent. Miscellaneous: Emphysematous changes most prominent in the apices. Faint groundglass density in the s uperior segment of the left lower lobe is nonspecific. Otherwise, no confluent infiltrate. Atheroscle rotic calcification of the coronary arteries. Abdominal and pelvic viscera are intact CONCLUSION: 1. Scattered athetotic calcification throughout the thoracoabdominal aorta with no aneurysmal diseas e. 2. Anatomic variant of the arch with the left vertebral emanating directly from the arch. Arch vesse ls are all patent. 3. 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 45-50% nonostial, long segment steno sis of the left renal artery. 4. Emphysematous changes most prominent in the apices. Faint groundglass density in the superior seg ment of the left lower lobe. Recommend noncontrasted CT scan of the chest in 3-6 months to ensure sta bility/resolution of this region. Electronically signed by: Kvng Garber MD 06/05/2018 11:16 PM EDT
[2018-06-05 23:21] LABS: Albumin 2.6 g/dL (3.4-5.0); Anion Gap 13 meq/L (5-15); Aspartate Aminotransferase 41 U/L (15-37); Blood Urea Nitrogen 70 mg/dL (7-18); Calcium 8.8 mg/dL (8.5-10.1); Carbon Dioxide 20.8 meq/L (21.0-32.0); Chloride 93 meq/L (98-107); Glomerular Filtration Rate 20 mL/min (>89); Glucose,Random 116 mg/dL (74-106); Lipase 171 U/L (73-393); Potassium 5.3 meq/L (3.5-5.1); Sodium 127 meq/L (136-145)
[2018-06-05 23:22] LABS: Alanine Aminotransferase 106 U/L (12-78)
[2018-06-05 23:25] LABS: Alkaline Phosphatase 291 U/L (45-117); Total Protein 7.9 g/dL (6.4-8.2)
--- NOTE | 2018-06-05 23:36 | XR ---
EXAM DATE: 06/05/2018 11:17 PM EDT AGE/SEX: 63 years / Male INDICATIONS: Abdominal pain for three weeks, bed ridden for four weeks, and general weakness. CLINICAL DATA: This is the patient's initial encounter. Patient reports that signs and symptoms have been present for 1 month and indicates a pain score of 0/10. MEDICAL/SURGICAL HISTORY: Congestive heart failure. Hypertension. Coronary artery disease. Co ronary artery stent. COMPARISON: [facility] [place] 1[place] SINGLE AP, 05/03/2018. . FINDINGS: A single AP view of the chest demonstrates the lungs to be symmetrically aerated without evidence of mass, infiltrate or effusion. Prominent interstitial markings identified previously have resolved. T he cardiomediastinal contours are unremarkable. Osseous structures are intact. CONCLUSION: No acute cardiopulmonary process. Electronically signed by: Kvng Garber MD 06/05/2018 11:34 PM EDT
[2018-06-05] MEDS ORDERED: Sod Chloride 0.9% Inj 1,000 ML IV.SIG SCH (23:45)
[2018-06-06] MEDS: Sod Chloride 0.9% Inj 1,000 ML IV.CONT SCH ×5 (00:05→20:39)
[2018-06-06] MEDS ORDERED: Sod Chloride 0.9% Inj 1,000 ML IV.SIG SCH (01:30)
[2018-06-06 01:42] LABS: Bilirubin,Urine Negative (Negative); Clarity,Urine Clear (Clear); Color,Urine Straw (Yellw/Straw); Glucose,Urine (UA) 50 mg/dL (Negative); Leukocyte Esterase,Urine Negative (Negative); Mucus,Urine Few /lpf (Occasional); Nitrite,Urine Negative (Negative); Specific Gravity,Urine 1.014 (1.002-1.035)
[2018-06-06] MEDS ORDERED: Acetaminophen 325 MG Tablet PO PRN (03:21)
[2018-06-06] MEDS ORDERED: Bisacodyl 10 MG Supp RECTAL PRN (03:21)
--- NOTE | 2018-06-06 04:37 | P.HP ---
History of Present Illness Service: [facility] Primary Care Physician: No Primary Care Physician History of Present Illness: 63-year-old male with a past medical history significant for coronary artery disease, hypertension, hypothyroidism and recent hospitalization for myxedema coma with respiratory failure requiring intubation and a prolonged hospital course presents to the emergency department for evaluation of abdominal pain. The patient states that he has had crampy abdominal pain that waxes and wanes for weeks. He endorses nausea, vomiting, diarrhea and states he has been unable to eat, sleep and has become subsequently almost completely bed bound secondary to these symptoms. He denies any fever/chills. No chest pain or shortness of breath. No lateralizing signs/symptoms. The patient reports compliance with all of his medications except for his steroid Dosepak and his lisinopril stating with the pharmacist told him these medications were not compatible with the remainder of his meds. He also states that upon his discharge from the hospital he only felt good for less than a week before the symptoms started. He reports compliance with his Synthroid. TSH today 1.150. Inpatient Certification: I certify that the inpatient services were ordered in accordance with Medicare regulations governing the order. This includes certification that hospital inpatient services are reasonable and necessary and in the case of services not specified as inpatient-only under 42 CFR 419.22(n), that they are appropriately provided as inpatient services in accordance to with the 2-midnight benchmark under 43 CFR 412.3(e) Estimated Total Length of Stay (Days): 3 Plans for Post Hospital Care: Home Review of Systems All other systems reviewed negative except as stated in HPI [facility] - History History Provided By: Patient - Medical History Medical History: Medical History (Last Updated 06/05/18 @ 22:29 by Paula Winston) Hypothyroid Anxiety CAD (coronary artery disease) Deafness in right ear Hypertension Surgical history unknown - Family History Family History: Family History (Last Updated 04/30/18 @ 01:53 by Cinthya Royal MD) Other Family history unknown - Tobacco History Second Hand Smoke Exposure: Yes Tobacco Use In Past 30 Days: Yes Smoking Status: Current every day smoker Tobacco Type: Cigarettes - Alcohol History How Often Do You Have a Drink Containing Alcohol: Never - Substance Use History Substance History: No History of Abuse - Travel History Recent Travel in the [place] Within the Last 8 Weeks: No Recent Travel Out of the Country Within the Last 8 Weeks: No - Immunization History Tetanus Immunization: Unsure Medications and Allergies Active Medications: Active Medications Acetaminophen (Tylenol) 650 mg PO Q4H PRN PRN Reason: Temp > 100.4 Al Hydroxide/Mg Hydroxide (Milk Of Magnesia Liq) 30 ml PO Q12H PRN PRN Reason: Mild Constipation Aspirin (Aspirin Chew) 81 mg PO DAILY [facility] Bisacodyl (Dulcolax Supp) 10 mg RECTAL DAILY PRN PRN Reason: SEVERE CONSITIPATION Clonidine HCl (Catapres) 0.1 mg PO Q8H [facility] Famotidine (Pepcid) 10 mg PO BID [facility] Furosemide (Lasix) 40 mg PO DAILY [facility] Heparin Sodium (Porcine) (Heparin Inj) 5,000 units SQ Q12H [facility] Hydralazine HCl (Apresoline) 50 mg PO TID [facility] Sodium Chloride (Ns Inj) 1,000 mls @ 125 mls/hr IV.CONT .Q8H [facility] Stop: 06/06/18 06:14 Last Infusion: 06/06/18 00:04 Dose: 0 mls/hr Sodium Chloride (Ns Inj) 1,000 mls @ 125 mls/hr IV.CONT .Q8H [facility] Last Admin: 06/06/18 03:58 Dose: Not Given Lactulose (Lactulose Liq) 30 ml PO DAILY PRN PRN Reason: SEVERE CONSITIPATION Levothyroxine Sodium (Synthroid) 100 mcg PO DAILY@0600 [facility] Ondansetron HCl (Zofran Inj) 4 mg IV.PUSH Q6H PRN PRN Reason: NAUSEA OR VOMITING Senna/Docusate Sodium (Denisha-Colace) 1 tab PO BID [facility] Sennosides (Senokot) 17.2 mg PO Q12H PRN PRN Reason: Moderate Constipation Sodium Chloride (Ns Flush) 2 ml IV.FLUSH PRN PRN PRN Reason: FLUSH AFTER USING IV ACCESS Last Admin: 06/05/18 22:39 Dose: 2 ml Spironolactone (Aldactone) 25 mg PO DAILY [facility] Temazepam (Restoril) 15 mg PO HS PRN PRN Reason: INSOMNIA Allergies Allergy/AdvReac Type Severity Reaction Status Date / Time pollen extracts Allergy Mild Congestion Verified 06/05/18 22:06 Home Medications Medication Instructions Recorded Confirmed Type aspirin 81 mg PO DAILY 06/05/18 06/05/18 History clonidine HCl 0.1 mg PO TID 06/05/18 06/05/18 History diphenhydramine HCl 25 mg PO BID PRN 06/05/18 06/05/18 History Exam Vital signs: Vital Signs 06/05/18 22:27 06/05/18 22:30 06/05/18 23:28 Temperature 98.2 F Pulse Rate 88 88 90 Respiratory Rate 16 16 16 Blood Pressure 142/78 H 125/57 L 140/64 Pulse Oximetry 100 100 100 06/06/18 03:21 Temperature Pulse Rate 87 Respiratory Rate 16 Blood Pressure 142/68 H Pulse Oximetry Intake & Output 06/05/18 06/05/18 06/06/18 06:59 18:59 06:59 Intake Total 3000 / 3000 Output Total 500 / 500 Balance 2500 / 2500 Weight 95.254 kg Intake: IV 3000 / 3000 NS Inj 1,000 ML @ 250 mls/hr IV 1000 / 1000 .CONT .Q4H [facility] Rx#:[id number] NS Inj 1,000 ML @ Wide Open IV. 1999 / 1999 SIG BOLUS [facility] Rx#:[id number] Output: Urine 500 / 500 Other: # Voids 1 Narrative: Gen.: No acute distress Head: Normocephalic. Atraumatic. EENT: Pupils equal round and reactive to light. Nose without drainage. Airway intact. Throat without injection. Cardiovascular: Regular rate and rhythm. No murmurs, rubs or gallops. Respiratory: Lungs clear to auscultation bilaterally. No wheezes or rhonchi. Abdomen: Soft, nontender, nondistended. No peritoneal signs. Musculoskeletal: No gross deformities. No edema. Skin: No obvious rashes or erythema. Neuro: Sensory and motor grossly intact. Cranial nerves II through XII grossly intact. Results - Labs CBC & Chem 7: 06/05/18 22:15 06/05/18 22:15 Labs: Laboratory Results - last 24 hr 06/05/18 06/05/18 06/05/18 22:15 22:15 22:15 WBC RBC Hgb Hct MCV MCH MCHC RDW Plt Count MPV Neut % (Auto) Lymph % (Auto) [place] % (Auto) Eos % (Auto) Baso % (Auto) Neut # (Auto) Lymph # (Auto) [place] # (Auto) Eos # (Auto) Baso # (Auto) WBC Differential Differential Comment PT 11.4 INR 1.1 APTT 32.7 H Sodium Potassium Chloride Carbon Dioxide Anion Gap BUN Creatinine Estimated GFR Random Glucose Lactic Acid 1.7 Calcium Magnesium Total Bilirubin AST ALT Alkaline Phosphatase Total Creatine Kinase 37 L Troponin I Less than 0.02 L Total Protein Albumin Lipase TSH Urine Color Urine Clarity Urine pH Ur Specific [place] Urine Protein Urine Glucose (UA) Urine Ketones Urine Occult Blood Urine Nitrate Urine Bilirubin Urine Urobilinogen Ur Leukocyte Esterase Urine RBC Urine WBC Urine Mucus Micro UA Comment Ur Microscopic Review Urine Culture Comments Blood Type Blood Type Recheck Antibody Screen 06/05/18 06/05/18 06/05/18 22:15 22:15 22:15 WBC 9.3 RBC 3.40 L Hgb 10.6 L Hct 31.2 L MCV 91.9 MCH 31.2 MCHC 34.0 RDW 16.1 Plt Count 555 H D MPV 8.9 Neut % (Auto) 80.6 H Lymph % (Auto) 9.5 [place] % (Auto) 5.9 Eos % (Auto) 3.2 Baso % (Auto) 0.8 Neut # (Auto) 7.5 Lymph # (Auto) 0.9 L [place] # (Auto) 0.5 Eos # (Auto) 0.3 Baso # (Auto) 0.1 WBC Differential . Differential Comment Auto diff final PT INR APTT Sodium 127 L Potassium 5.3 H Chloride 93 L Carbon Dioxide 20.8 L Anion Gap 13 BUN 70 H Creatinine 3.15 H Estimated GFR 20 L Random Glucose 116 H Lactic Acid Calcium 8.8 Magnesium Total Bilirubin 0.5 AST 41 H ALT 106 H Alkaline Phosphatase 291 H Total Creatine Kinase Troponin I Total Protein 7.9 Albumin 2.6 L Lipase 171 TSH Urine Color Urine Clarity Urine pH Ur Specific [place] Urine Protein Urine Glucose (UA) Urine Ketones Urine Occult Blood Urine Nitrate Urine Bilirubin Urine Urobilinogen Ur Leukocyte Esterase Urine RBC Urine WBC Urine Mucus Micro UA Comment Ur Microscopic Review Urine Culture Comments Blood Type O Positive Blood Type Recheck Required Antibody Screen Negative 06/05/18 06/05/18 06/06/18 22:15 22:15 01:20 WBC RBC Hgb Hct MCV MCH MCHC RDW Plt Count MPV Neut % (Auto) Lymph % (Auto) [place] % (Auto) Eos % (Auto) Baso % (Auto) Neut # (Auto) Lymph # (Auto) [place] # (Auto) Eos # (Auto) Baso # (Auto) WBC Differential Differential Comment PT INR APTT Sodium Potassium Chloride Carbon Dioxide Anion Gap BUN Creatinine Estimated GFR Random Glucose Lactic Acid Calcium Magnesium 2.1 Total Bilirubin AST ALT Alkaline Phosphatase Total Creatine Kinase Troponin I Total Protein Albumin Lipase TSH 1.150 Urine Color Straw Urine Clarity Clear Urine pH 5.0 Ur Specific [place] 1.014 Urine Protein Negative Urine Glucose (UA) 50 Urine Ketones Trace Urine Occult Blood Small H Urine Nitrate Negative Urine Bilirubin Negative Urine Urobilinogen Less than 2 Ur Leukocyte Esterase Negative Urine RBC Less than 1 Urine WBC 2 Urine Mucus Few H Micro UA Comment Culture not ind Ur Microscopic Review Not Reportable Urine Culture Comments Culture not ind Blood Type Blood Type Recheck Antibody Screen - Imaging Impressions Chest X-Ray 06/05/18 22:08 CONCLUSION: No acute cardiopulmonary process. Thoracic Aorta CT 06/05/18 22:08 CONCLUSION: 1. Scattered athetotic calcification throughout the thoracoabdominal aorta with no aneurysmal disease. 2. Anatomic variant of the arch with the left vertebral emanating directly from the arch. Arch vessels are all patent. 3. 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 45-50% nonostial, long segment stenosis of the left renal artery. 4. Emphysematous changes most prominent in the apices. Faint groundglass density in the superior segment of the left lower lobe. Recommend noncontrasted CT scan of the chest in 3-6 months to ensure stability/resolution of this region. Caprini VTE Risk Assessment Caprini VTE Risk Assessment: Moderate/High Risk (score >= 2) Caprini Risk Assessment Model: Point Value = 1 Point Value = 2 Point Value = 3 Point Value = 5 Age 41-60 Minor surgery BMI > 25 kg/m2 Swollen legs Varicose veins or History of unexplained or recurrent spontaneous Oral contraceptives or hormone replacement Sepsis (< 1 month) Serious lung disease, including pneumonia (< 1 month) Abnormal pulmonary function Acute myocardial infarction Congestive heart failure (< 1 month) History of inflammatory bowel disease Medical patient at bed rest Age 61-74 Arthroscopic surgery Major open surgery (> 45 min) Laparoscopic surgery (> 45 min) Malignancy Confined to bed (> 72 hours) Immobilizing plaster cast Central venous access Age >= 75 History of VTE Family history of VTE Factor V Leiden Prothrombin [id number] Lupus anticoagulant Anticardiolipin antibodies Elevated serum homocysteine Heparin-induced thrombocytopenia Other congenital or acquired thrombophilia Stroke (< 1 month) Elective arthroplasty Hip, pelvis, or leg fracture Acute spinal cord injury (< 1 month) Prophylaxis Regimen: Total Risk Factor Score Risk Level Prophylaxis Regimen 0-1 Low Early ambulation 2 Moderate Order ONE of the following: *Sequential Compression Device (SCD) *Heparin 5000 units SQ BID 3-4 Higher Order ONE of the following medications: *Heparin 5000 units SQ TID *Enoxaparin/Lovenox 40 mg SQ daily (WT < 150 kg, CrCl > 30 mL/min) *Enoxaparin/Lovenox 30 mg SQ daily (WT < 150 kg, CrCl > 10-29 mL/min) *Enoxaparin/Lovenox 30 mg SQ BID (WT < 150 kg, CrCl > 30 mL/min) AND/OR *Sequential Compression Device (SCD) 5 or more Highest Order ONE of the following medications: *Heparin 5000 units SQ TID (Preferred with Epidurals) *Enoxaparin/Lovenox 40 mg SQ daily (WT < 150 kg, CrCl > 30 mL/min) *Enoxaparin/Lovenox 30 mg SQ daily (WT < 150 kg, CrCl > 10-29 mL/min) *Enoxaparin/Lovenox 30 mg SQ BID (WT < 150 kg, CrCl > 30 mL/min) AND *Sequential Compression Device (SCD) Assessment and Plan - Plan Assessment/plan: 1. Acute renal failure Creatinine 3.15, baseline 1.0 K+ 5.3 Renal ultrasound pending Nephrology consulted, appreciate recommendations IV fluid hydration 2. Abdominal pain/nausea/vomiting/diarrhea Concern for dissecting aneurysm on arrival to the emergency department as patient with severe abdominal pain that radiated to the back Thoracic aorta CTA negative for aneurysmal disease Zofran Monitor Consider stool studies if diarrhea persists, patient with no diarrhea at this time 3. Hypothyroidism/history of myxedema, TSH within normal limits, continue home Synthroid 4. Hypertension/CAD Continue home meds FEN NPO Electrolytes: Monitor NS at 125 cc/hr Heparin
[2018-06-06] MEDS: Levothyroxine 100 MCG Tablet PO SCH (05:35)
[2018-06-06] MEDS ORDERED: Spironolactone 25 MG Tablet PO SCH (09:00)
[2018-06-06] MEDS ORDERED: cloNIDine Susp (NICU) 20 MCG/ML 30 ML Bottle PO SCH (09:00)
[2018-06-06] MEDS ORDERED: Furosemide 40 MG Tablet PO SCH (09:00)
[2018-06-06] MEDS: Senna/Docusate Sodium 8.6/50 MG Tablet PO SCH ×2 (12:15→22:33)
[2018-06-06] MEDS: hydrALAZINE 50 MG Tablet PO SCH ×3 (12:15→21:29)
[2018-06-06] MEDS: Famotidine 20 MG Tablet PO SCH ×2 (12:16→20:41)
[2018-06-06] MEDS: Heparin - SQ 10,000 UNITS/ML Vial SQ SCH ×2 (12:17→20:40)
[2018-06-06 12:20] LABS: Calcium 8.3 mg/dL (8.5-10.1); Carbon Dioxide 19.8 meq/L (21.0-32.0); Potassium 5.1 meq/L (3.5-5.1)
--- NOTE | 2018-06-06 12:23 | US ---
EXAM DATE: 06/06/2018 12:18 PM EDT AGE/SEX: 63 years / Male INDICATIONS: Increased Bun and Creatine. Lower abdominal pain. CLINICAL DATA: This is the patient's initial encounter. Patient reports that signs and symptoms have been present for 1 day and indicates a pain score of 5/10. MEDICAL/SURGICAL HISTORY: . CAD. HTN. Hypothyroid. None. COMPARISON: [facility], CTA THOR ABD AORTA W CONTRAST W 3D, 06/05/2018. . MEASUREMENTS: Right Kidney:__11.8 x 6.4 x 4.9 cm Left Kidney:__12.5 x 5.5 x 6.3 cm FINDINGS: Right Kidney: Normal echotexture and cortical thickness. No mass or hydronephrosis. Left Kidney: Normal echotexture and cortical thickness. No mass or hydronephrosis. Bladder: Sorensen catheter is present. Bladder decompressed. Other: None. CONCLUSION: 1. Normal renal sonogram. Electronically signed by: Kevin Olivares MD 06/06/2018 12:22 PM EDT
--- NOTE | 2018-06-06 12:50 | ECG ---
Date Performed: 06/05/2018 Time Performed: 22:06:18 PTAGE: 63 years EKG: Sinus rhythm NORMAL ECG PREVIOUS TRACING : 05/03/2018 17.56 Since the previous tracing, no significant change noted DOCTOR: Сергей Kerr Interpretating Date/Time 06/06/2018 12:48:22
--- NOTE | 2018-06-06 13:42 | P.CONNP ---
<Abril Hart - Last Filed: 06/06/18 13:46> History of Present Illness Service: Nephrology Consult date: 06/06/18 Requesting Physician: Cinthya Royal Reason for Consult: KATIE Primary Care Provider: No Primary Care Physician Family Provider: No Primary Care Physician Chief Complaint: Abdominal pain History of Present Illness: The patient is a 63 yo [place] male who presented to the ED 06/05 with complaints of worsening abdominal pain, nausea, vomiting, and diarrhea ongoing for weeks. He was admitted from 04/30 thru 05/13 at this institution for myxedema coma and at that admission had a SCr initially of 1.46 but improved to 1.15 at discharge. Echo 05/03/18 showing EF of 30-35% and appears he was discharged on Lasix 40mg QD and Spironolactone 25mg QD and says he has been taking all prescribed medications from previous admission. We have been consulted for acute renal failure. Admitting SCr 3.15 with eGFR 20, K+ at 5.3, CO2 20.8, albumin 2.6, Na 127, Hgb 10.6. Received 100mL iodinated contrast on admission for suspicion of dissecting aortic aneurysm, but was negative. Incidentally noted non-ostial, long segment stenosis of the left renal artery at 45-50% and a patent right renal artery. The patient is somewhat of a poor historian, but denies any NSAID usage at home. Review of Systems Constitutional: Reports anorexia, Reports fatigue, Reports weakness Gastrointestinal: Reports abdominal pain, Reports nausea, Reports vomiting PMFSH - History History Provided By: Patient - Medical History Medical History: Medical History (Last Updated 06/06/18 @ 13:47 by ABLDOMERO Osei) Cardiomyopathy Hypothyroid Anxiety CAD (coronary artery disease) Deafness in right ear Hypertension Surgical history unknown - Family History Family History: Family History (Last Updated 04/30/18 @ 01:53 by Cinthya Royal MD) Other Family history unknown - Tobacco History Second Hand Smoke Exposure: Yes Tobacco Use In Past 30 Days: Yes Smoking Status: Heavy tobacco smoker Tobacco Type: Cigarettes - Alcohol History How Often Do You Have a Drink Containing Alcohol: Never - Substance Use History Substance History: No History of Abuse - Travel History Recent Travel in the [place] Within the Last 8 Weeks: No Recent Travel Out of the Country Within the Last 8 Weeks: No - Immunization History Tetanus Immunization: Unsure Medications and Allergies Allergies Allergy/AdvReac Type Severity Reaction Status Date / Time pollen extracts Allergy Mild Congestion Verified 06/05/18 22:06 Home Medications Medication Instructions Recorded Confirmed Type aspirin 81 mg PO DAILY 06/05/18 06/05/18 History clonidine HCl 0.1 mg PO TID 06/05/18 06/05/18 History diphenhydramine HCl 25 mg PO BID PRN 06/05/18 06/05/18 History Active Medications: Active Medications Acetaminophen (Tylenol) 650 mg PO Q4H PRN PRN Reason: Temp > 100.4 Al Hydroxide/Mg Hydroxide (Milk Of Magnesia Liq) 30 ml PO Q12H PRN PRN Reason: Mild Constipation Aspirin (Aspirin Chew) 81 mg PO DAILY [facility] Last Admin: 06/06/18 12:17 Dose: 81 mg Bisacodyl (Dulcolax Supp) 10 mg RECTAL DAILY PRN PRN Reason: SEVERE CONSITIPATION Clonidine HCl (Catapres) 0.1 mg PO Q8H [facility] Last Admin: 06/06/18 05:35 Dose: 0.1 mg Famotidine (Pepcid) 10 mg PO BID [facility] Last Admin: 06/06/18 12:16 Dose: 10 mg Furosemide (Lasix) 40 mg PO DAILY [facility] Last Admin: 06/06/18 12:17 Dose: 40 mg Heparin Sodium (Porcine) (Heparin Inj) 5,000 units SQ Q12H [facility] Last Admin: 06/06/18 12:17 Dose: 5,000 units Hydralazine HCl (Apresoline) 50 mg PO TID [facility] Last Admin: 06/06/18 12:15 Dose: 50 mg Sodium Chloride (Ns Inj) 1,000 mls @ 125 mls/hr IV.CONT .Q8H [facility] Last Admin: 06/06/18 13:01 Dose: 125 mls/hr Lactulose (Lactulose Liq) 30 ml PO DAILY PRN PRN Reason: SEVERE CONSITIPATION Levothyroxine Sodium (Synthroid) 100 mcg PO DAILY@0600 [facility] Last Admin: 06/06/18 05:35 Dose: 100 mcg Ondansetron HCl (Zofran Inj) 4 mg IV.PUSH Q6H PRN PRN Reason: NAUSEA OR VOMITING Senna/Docusate Sodium (Denisha-Colace) 1 tab PO BID [facility] Last Admin: 06/06/18 12:15 Dose: 1 tab Sennosides (Senokot) 17.2 mg PO Q12H PRN PRN Reason: Moderate Constipation Sodium Chloride (Ns Flush) 2 ml IV.FLUSH PRN PRN PRN Reason: FLUSH AFTER USING IV ACCESS Last Admin: 06/05/18 22:39 Dose: 2 ml Spironolactone (Aldactone) 25 mg PO DAILY [facility] Last Admin: 06/06/18 12:15 Dose: 25 mg Temazepam (Restoril) 15 mg PO HS PRN PRN Reason: INSOMNIA Exam Vital signs: Vital Signs 06/05/18 22:27 06/05/18 22:30 06/05/18 23:28 Temperature 98.2 F Pulse Rate 88 88 90 Respiratory Rate 16 16 16 Blood Pressure 142/78 H 125/57 L 140/64 Pulse Oximetry 100 100 100 06/06/18 03:21 06/06/18 04:00 06/06/18 07:43 Temperature 97.6 F 98.8 F Pulse Rate 87 90 82 Respiratory Rate 16 20 16 Blood Pressure 142/68 H 141/64 H 116/59 L Pulse Oximetry 95 96 06/06/18 12:00 Temperature 98.5 F Pulse Rate 92 H Respiratory Rate 16 Blood Pressure 123/57 L Pulse Oximetry 95 Intake & Output 06/05/18 06/06/18 06/06/18 18:59 06:59 18:59 Intake Total 3750 / 3750 Output Total 500 / 500 Balance 3250 / 3250 Weight 95.254 kg Intake: IV 3750 / 3750 NS Inj 1,000 ML @ 250 mls/hr IV 1750 / 1750 .CONT .Q4H [facility] Rx#:[id number] NS Inj 1,000 ML @ Wide Open IV. 1999 / 1999 SIG BOLUS [facility] Rx#:[id number] Output: Urine 500 / 500 Other: # Voids 0 - Constitutional no acute distress, obese - Routine HEENT Exam Head: Present: normocephalic - Routine Neck Exam Present: supple - Routine Respiratory Exam Present: CTA bilaterally - Routine Cardiovascular Exam Present: RRR, S1, S2 - Routine Abdominal Exam Present: soft - Routine Extremities Exam Absent: edema - Routine Skin Exam Present: intact - Routine Neurological Exam Present: alert Results - Lab Results 06/05/18 22:15 06/06/18 11:16 Most recent lab results Calcium 8.3 mg/dL (8.5-10.1) L 06/06/18 11:16 Magnesium 2.1 mg/dL (1.5-2.5) 06/05/18 22:15 Assessment and Plan - Assessment (1) Acute renal insufficiency Code(s): N28.9 - Disorder of kidney and ureter, unspecified Status: Acute Plan: Appears renal insufficiency related to volume depletion in setting of poor oral intake, emesis, and diarrhea as well as continued diuretics use. Will hold diuretics for the present and continue on IV hydration at a lower rate given his cardiomyopathy. Will repeat his renal panel in the AM. He did receive iodinated contrast exposure on 06/05, so hopefully no contrast injury has occurred. Noted 45-50% left long segment stenosis of the left renal artery on CTA, but not cause of renal decline. Medications should be adjusted for the patient's renal decline. Avoid iodinated contrast dyes and NSAIDs. Avoid gadolinium when eGFR <30. (2) Abdominal pain Code(s): R10.9 - Unspecified abdominal pain Status: Acute (3) Cardiomyopathy Code(s): I42.9 - Cardiomyopathy, unspecified Status: Acute Plan: Echo 05/03/18 showing EF 30-35% Decrease IV hydration with close monitoring of volume status. Clinically dehydrated on today's exam. (4) Atherosclerotic heart disease of [place] coronary artery without angina pectoris Code(s): I25.10 - Atherosclerotic heart disease of [place] coronary artery without angina pectoris Status: Acute Plan: Hx of [place] and PTCA per charts. Pt reports he does not have an outpatient flap maker. <Reyna Perez - Last Filed: 06/06/18 15:03> History of Present Illness Primary Care Provider: No Primary Care Physician Family Provider: No Primary Care Physician [facility] - Medical History Medical History: Medical History (Last Updated 06/06/18 @ 13:47 by BALDOMERO Osei) Cardiomyopathy Hypothyroid Anxiety CAD (coronary artery disease) Deafness in right ear Hypertension Surgical history unknown - Family History Family History: Family History (Last Updated 04/30/18 @ 01:53 by Cinthya Royal MD) Other Family history unknown Medications and Allergies Active Medications: Active Medications Acetaminophen (Tylenol) 650 mg PO Q4H PRN PRN Reason: Temp > 100.4 Al Hydroxide/Mg Hydroxide (Milk Of Magnesia Liq) 30 ml PO Q12H PRN PRN Reason: Mild Constipation Aspirin (Aspirin Chew) 81 mg PO DAILY [facility] Last Admin: 06/06/18 12:17 Dose: 81 mg Bisacodyl (Dulcolax Supp) 10 mg RECTAL DAILY PRN PRN Reason: SEVERE CONSITIPATION Clonidine HCl (Catapres) 0.1 mg PO Q8H [facility] Last Admin: 06/06/18 05:35 Dose: 0.1 mg Famotidine (Pepcid) 10 mg PO BID [facility] Last Admin: 06/06/18 12:16 Dose: 10 mg Furosemide (Lasix) 40 mg PO DAILY [facility] Last Admin: 06/06/18 12:17 Dose: 40 mg Heparin Sodium (Porcine) (Heparin Inj) 5,000 units SQ Q12H [facility] Last Admin: 06/06/18 12:17 Dose: 5,000 units Hydralazine HCl (Apresoline) 50 mg PO TID [facility] Last Admin: 06/06/18 12:15 Dose: 50 mg Sodium Chloride (Ns Inj) 1,000 mls @ 100 mls/hr IV.CONT .Q10H [facility] Last Admin: 06/06/18 13:01 Dose: 125 mls/hr Lactulose (Lactulose Liq) 30 ml PO DAILY PRN PRN Reason: SEVERE CONSITIPATION Levothyroxine Sodium (Synthroid) 100 mcg PO DAILY@0600 [facility] Last Admin: 06/06/18 05:35 Dose: 100 mcg Ondansetron HCl (Zofran Inj) 4 mg IV.PUSH Q6H PRN PRN Reason: NAUSEA OR VOMITING Senna/Docusate Sodium (Denisha-Colace) 1 tab PO BID [facility] Last Admin: 06/06/18 12:15 Dose: 1 tab Sennosides (Senokot) 17.2 mg PO Q12H PRN PRN Reason: Moderate Constipation Sodium Chloride (Ns Flush) 2 ml IV.FLUSH PRN PRN PRN Reason: FLUSH AFTER USING IV ACCESS Last Admin: 06/05/18 22:39 Dose: 2 ml Spironolactone (Aldactone) 25 mg PO DAILY [facility] Last Admin: 06/06/18 12:15 Dose: 25 mg Temazepam (Restoril) 15 mg PO HS PRN PRN Reason: INSOMNIA Exam Vital signs: Vital Signs 06/05/18 22:27 06/05/18 22:30 06/05/18 23:28 Temperature 98.2 F Pulse Rate 88 88 90 Respiratory Rate 16 16 16 Blood Pressure 142/78 H 125/57 L 140/64 Pulse Oximetry 100 100 100 06/06/18 03:21 06/06/18 04:00 06/06/18 07:43 Temperature 97.6 F 98.8 F Pulse Rate 87 90 82 Respiratory Rate 16 20 16 Blood Pressure 142/68 H 141/64 H 116/59 L Pulse Oximetry 95 96 06/06/18 12:00 Temperature 98.5 F Pulse Rate 92 H Respiratory Rate 16 Blood Pressure 123/57 L Pulse Oximetry 95 Intake & Output 06/05/18 06/06/18 06/06/18 18:59 06:59 18:59 Intake Total 3750 / 3750 Output Total 500 / 500 Balance 3250 / 3250 Weight 95.254 kg Intake: IV 3750 / 3750 NS Inj 1,000 ML @ 250 mls/hr IV 1750 / 1750 .CONT .Q4H [facility] Rx#:[id number] NS Inj 1,000 ML @ Wide Open IV. 1999 / 1999 SIG BOLUS [facility] Rx#:[id number] Output: Urine 500 / 500 Other: # Voids 0 Results - Lab Results 06/05/18 22:15 06/06/18 11:16 Most recent lab results Calcium 8.3 mg/dL (8.5-10.1) L 06/06/18 11:16 Magnesium 2.1 mg/dL (1.5-2.5) 06/05/18 22:15 Assessment and Plan - Assessment (1) Acute renal insufficiency Code(s): N28.9 - Disorder of kidney and ureter, unspecified Status: Acute (2) Abdominal pain Code(s): R10.9 - Unspecified abdominal pain Status: Acute (3) Cardiomyopathy Code(s): I42.9 - Cardiomyopathy, unspecified Status: Acute (4) Atherosclerotic heart disease of [place] coronary artery without angina pectoris Code(s): I25.10 - Atherosclerotic heart disease of [place] coronary artery without angina pectoris Status: Acute - Attending Attestation The exam, history, and the medical decision-making described in the above note were completed with the assistance of the STEVIE. I reviewed and agree with the findings presented. I attest that I had a [id number] encounter with the patient on the same day, and personally performed and documented my assessment and findings in the medical record. As indicated above will discontinue diuretics pending improvement in volume status and renal indices. Reduce IV fluids also in view of his history of severe cardiomyopathy. Defer to primary care physician in regard to whether or not cardiology consultation indicated this admission. Patient has a history of poor follow-up and apparently has not yet established with a primary care physician.
[2018-06-07] MEDS: Sod Chloride 0.9% Inj 1,000 ML IV.CONT SCH ×2 (04:29→16:10)
[2018-06-07] MEDS: Levothyroxine 100 MCG Tablet PO SCH (05:05)
[2018-06-07 07:29] LABS: Baso % (Auto) 0.6 % (0.0-2.0); Eos # (Auto) 0.4 th/mm3 (0.0-0.4); Eos % (Auto) 5.5 % (0.0-4.0); Hematocrit 28.9 % (39.0-51.0); Hemoglobin 9.6 gm/dL (13.0-17.0); Lymph # (Auto) 0.6 th/mm3 (1.0-4.8); Lymph % (Auto) 8.6 % (9.0-44.0); Mean Corpuscular HGB Conc 33.2 % (32.0-36.0); Mean Corpuscular Hemoglobin 31.3 pg (27.0-34.0); Mean Corpuscular Volume 94.1 fL (80.0-100.0); Mean Platelet Volume 8.7 fL (7.0-11.0); Mono # (Auto) 0.4 th/mm3 (0.0-0.9); Mono % (Auto) 5.8 % (0.0-8.0); Neut % (Auto) 79.5 % (16.0-70.0); Platelet Count 428 th/mm3 (150-450); Red Blood Count 3.07 mil/mm3 (4.50-5.90); Red Cell Distribution Width 16.5 % (11.6-17.2); White Blood Count 7.5 th/mm3 (4.0-11.0)
[2018-06-07 08:03] LABS: Alanine Aminotransferase 87 U/L (12-78); Albumin 2.1 g/dL (3.4-5.0); Alkaline Phosphatase 206 U/L (45-117); Anion Gap 11 meq/L (5-15); Aspartate Aminotransferase 44 U/L (15-37); Blood Urea Nitrogen 36 mg/dL (7-18); Calcium 8.4 mg/dL (8.5-10.1); Carbon Dioxide 19.7 meq/L (21.0-32.0); Chloride 106 meq/L (98-107); Glomerular Filtration Rate 40 mL/min (>89); Glucose,Random 86 mg/dL (74-106); Phosphorus 3.6 mg/dL (2.5-4.9); Potassium 5.1 meq/L (3.5-5.1); Sodium 137 meq/L (136-145); Total Protein 6.5 g/dL (6.4-8.2)
[2018-06-07] MEDS: Famotidine 20 MG Tablet PO SCH ×2 (08:25→20:36)
[2018-06-07] MEDS: Senna/Docusate Sodium 8.6/50 MG Tablet PO SCH (08:25)
[2018-06-07] MEDS: hydrALAZINE 50 MG Tablet PO SCH ×3 (08:25→17:26)
[2018-06-07] MEDS: Heparin - SQ 10,000 UNITS/ML Vial SQ SCH ×2 (08:26→20:36)
--- NOTE | 2018-06-07 10:42 | P.PN ---
Subjective Interval history: wanting to eat and after eating has exploseive diarrhea this am C diff back + complain of mild epigastric discomfort- exam benign slight nausea, lipase normal complain of also left UE shoulder pain- sounds chronic- 3-4 months now denies history of stroke Physical Exam Vital signs: Vital Signs 06/06/18 12:00 06/06/18 16:00 06/06/18 20:00 Temperature 98.5 F 98.2 F 98.2 F Pulse Rate 92 H 98 H 98 H Respiratory Rate 16 16 16 Blood Pressure 123/57 L 139/68 118/53 L Pulse Oximetry 95 95 97 06/07/18 00:00 06/07/18 03:55 06/07/18 08:00 Temperature 97.7 F 98.1 F 98.3 F Pulse Rate 92 H 97 H 92 H Respiratory Rate 18 16 14 Blood Pressure 131/66 137/60 136/65 Pulse Oximetry 95 95 96 Intake & Output 06/06/18 06/07/18 06/07/18 18:59 06:59 18:59 Intake Total 1999 Output Total 3200 / 3200 1450 / 1450 Balance -3200 / -3200 550 / 550 Intake: IV 1999 NS Inj 1,000 ML @ 100 mls/hr IV 1999 .CONT .Q10H [facility] Rx#:[id number] Output: Urine 1450 / 1450 Urine Amount (Catheter) 3200 / 3200 Indwelling Urethral Catheter 3200 / 3200 Other: Date of Last Bowel Movement 06/04/18 06/06/18 Narrative: awake and alert, oriented x 3 anicteric dry roal mucosa neck supple lungs- no rales regular rhtyhm abdomen= flabby, soft, nontender, good bowel sounds extremities no edema LUE- 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 - difficulty raising left shoulder- per aptient should pain move both LE spontaneously strndgth good - Urinary Catheter Management Indwelling Urethral Catheter Cath placed during this visit: yes Reason for continuing: Acute urinary retention Insertion date: 06/06/18 Insertion time: 06:51 Results - Labs CBC & Chem 7: 06/07/18 06:20 06/07/18 06:20 Laboratory Results - last 24 hr 06/06/18 06/06/18 06/07/18 11:16 13:32 06:20 WBC 7.5 RBC 3.07 L Hgb 9.6 L Hct 28.9 L MCV 94.1 MCH 31.3 MCHC 33.2 RDW 16.5 Plt Count 428 MPV 8.7 Neut % (Auto) 79.5 H Lymph % (Auto) 8.6 L [place] % (Auto) 5.8 Eos % (Auto) 5.5 H Baso % (Auto) 0.6 Neut # (Auto) 6.0 Lymph # (Auto) 0.6 L [place] # (Auto) 0.4 Eos # (Auto) 0.4 Baso # (Auto) 0.0 WBC Differential . Differential Comment Auto diff final Sodium 133 L Potassium 5.1 Chloride 104 D Carbon Dioxide 19.8 L Anion Gap 9 BUN 53 H Creatinine 2.24 H Estimated GFR 30 L POC Glucose 101 Random Glucose 92 Calcium 8.3 L Phosphorus Total Bilirubin AST ALT Alkaline Phosphatase Total Protein Albumin 06/07/18 06/07/18 06:20 08:59 WBC RBC Hgb Hct MCV MCH MCHC RDW Plt Count MPV Neut % (Auto) Lymph % (Auto) [place] % (Auto) Eos % (Auto) Baso % (Auto) Neut # (Auto) Lymph # (Auto) [place] # (Auto) Eos # (Auto) Baso # (Auto) WBC Differential Differential Comment Sodium 137 Potassium 5.1 Chloride 106 Carbon Dioxide 19.7 L Anion Gap 11 BUN 36 H Creatinine 1.74 H Estimated GFR 40 L POC Glucose 92 Random Glucose 86 Calcium 8.4 L Phosphorus 3.6 Total Bilirubin 0.4 AST 44 H ALT 87 H Alkaline Phosphatase 206 H Total Protein 6.5 D Albumin 2.1 L Microbiology 06/05/18 22:15 Blood - Peripheral Aerobic Blood Culture - Preliminary No growth in 1 day 06/05/18 22:15 Blood - Peripheral Anaerobic Blood Culture - Preliminary No growth in 1 day 06/05/18 22:10 Blood - Peripheral Aerobic Blood Culture - Preliminary No growth in 1 day 06/05/18 22:10 Blood - Peripheral Anaerobic Blood Culture - Preliminary No growth in 1 day - Imaging Impressions Abdomen/Bladder Ultrasound 06/06/18 00:00 CONCLUSION: 1. Normal renal sonogram. Assessment and Plan - Plan 63 years old male Acute renal failure- renal functioning gradually trending down - -baseline 1.0 - continue IVF- creatinine trending down - as OP was on Fursemide and Aldactone- on hold for now -Renal ultrasound normal -Nephrology consulted, appreciate recommendations -continue gentle IV fluid hydration-with history of cardiomuopathy EF- 30-35% -ff BMP C diff colitis Poor po - patient still having abdominal/epigastric pain with poor po - start Flagyl 500 mg po tid today 06/07 and monitor BMs - NUtritonist consult - abdominal exam- benign, pain maybe from colitis- if persist- do imaging studies - continue IVF Elevated LFTs- this are stable and acutallu trending down from previous admission 04/2018 - quirino from Chronic passive congestion from [facility] Concern for dissecting aneurysm on arrival to the emergency department as patient with severe abdominal pain that radiated to the back - Thoracic aorta CTA negative for aneurysmal disease Hypothyroidism/history of myxedema, - TSH within normal limits, continue home Synthroid 175 mcg po daily Hypertension/CAD Cardiomyopathy- not in clinical failure - cotninue meds-Hydralazine - Furosemide/Aldactone/Lisinorpil on hold for now-with KATIE - reintroduced diuretics/HERACLIO gradually in next few days as renal indices improved Left UE weakness - shoulder pain- strength- arm -weak- just drop on exam ? acute- poer patient -3-4 [facility] - doubt CVA but will get MRI of the head - MRI of the shoulder - PT/OT consult UP and ambulate- PT consult- put of bed to chair Heparin SQ PPI
[2018-06-07] MEDS: metroNIDAZOLE 500 MG Tablet PO SCH ×2 (16:10→22:08)
--- NOTE | 2018-06-07 16:16 | P.PNNP ---
Subjective Interval history: The patient is a 63 yo [place] male who presented to the ED 06/05 with complaints of worsening abdominal pain, nausea, vomiting, and diarrhea ongoing for weeks. He was admitted from 04/30 thru 05/13 at this institution for myxedema coma and at that admission had a SCr initially of 1.46 but improved to 1.15 at discharge. Echo 05/03/18 showing EF of 30-35% and appears he was discharged on Lasix 40mg QD and Spironolactone 25mg QD and says he has been taking all prescribed medications from previous admission. We have been consulted for acute renal failure. Admitting SCr 3.15 with eGFR 20, K+ at 5.3, CO2 20.8, albumin 2.6, Na 127, Hgb 10.6. Received 100mL iodinated contrast on admission for suspicion of dissecting aortic aneurysm, but was negative. Incidentally noted non-ostial, long segment stenosis of the left renal artery at 45-50% and a patent right renal artery. The patient is somewhat of a poor historian, but denied any NSAID usage at home. Patient indicated that he is feeling somewhat better today. Physical Exam Vital signs: Vital Signs 06/06/18 20:00 06/07/18 00:00 06/07/18 03:55 Temperature 98.2 F 97.7 F 98.1 F Pulse Rate 98 H 92 H 97 H Respiratory Rate 16 18 16 Blood Pressure 118/53 L 131/66 137/60 Pulse Oximetry 97 95 95 06/07/18 08:00 06/07/18 11:38 06/07/18 13:21 Temperature 98.3 F 98.4 F 97.8 F Pulse Rate 92 H 96 H 90 Respiratory Rate 14 16 17 Blood Pressure 136/65 154/74 H 154/70 H Pulse Oximetry 96 97 97 06/07/18 15:28 Temperature 97.7 F Pulse Rate 89 Respiratory Rate 16 Blood Pressure 134/69 Pulse Oximetry 97 Intake & Output 06/06/18 06/07/18 06/07/18 18:59 06:59 18:59 Intake Total 1999 Output Total 3200 / 3200 1450 / 1450 650 / 650 Balance -3200 / -3200 550 / 550 -650 / -650 Intake: IV 1999 NS Inj 1,000 ML @ 100 mls/hr IV 1999 .CONT .Q10H [facility] Rx#:[id number] Output: Urine 1450 / 1450 Urine Amount (Catheter) 3200 / 3200 650 / 650 Indwelling Urethral Catheter 3200 / 3200 650 / 650 Other: Date of Last Bowel Movement 06/04/18 06/06/18 Narrative: GENERAL: Patient lying in bed not in respiratory distress. Mucous membranes moist SKIN: Warm and dry. HEAD: Normocephalic. EYES: No scleral icterus. No injection or drainage. NECK: Supple, trachea midline. No JVD or lymphadenopathy. CARDIOVASCULAR: Regular rate and rhythm without murmurs, gallops, or rubs. RESPIRATORY: Breath sounds equal bilaterally. No accessory muscle use. GASTROINTESTINAL: Abdomen soft, non-tender, nondistended. - Urinary Catheter Management Indwelling Urethral Catheter Cath placed during this visit: yes Reason for continuing: Acute urinary retention Insertion date: 06/06/18 Insertion time: 06:51 Assessment and Plan - Assessment (1) Acute renal insufficiency Code(s): N28.9 - Disorder of kidney and ureter, unspecified Status: Acute Plan: Appears renal insufficiency related to volume depletion in setting of poor oral intake, emesis, and diarrhea as well as continued diuretics use. Continue to hold diuretics for the present and continue on IV hydration at a lower rate given his cardiomyopathy. No evidence of fluid overload currently and renal indices are improving. There is no evidence of contrast injury to date, Noted 45-50% left long segment stenosis of the left renal artery on CTA, but not cause of renal decline. Medications should be adjusted for the patient's renal decline. Avoid iodinated contrast dyes and NSAIDs. Avoid gadolinium when eGFR <30. (2) Abdominal pain Code(s): R10.9 - Unspecified abdominal pain Status: Acute (3) Cardiomyopathy Code(s): I42.9 - Cardiomyopathy, unspecified Status: Acute Plan: Echo 05/03/18 showing EF 30-35% Decrease IV hydration with close monitoring of volume status. Clinically dehydrated on today's exam. (4) Atherosclerotic heart disease of [place] coronary artery without angina pectoris Code(s): I25.10 - Atherosclerotic heart disease of [place] coronary artery without angina pectoris Status: Acute Plan: Hx of [place] and PTCA per charts. 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
--- NOTE | 2018-06-07 20:21 | MR ---
EXAM DATE: 06/07/2018 8:02 PM EDT AGE/SEX: 63 years / Male INDICATIONS: Right sided weakness. Slurred speech. CLINICAL DATA: This is the patient's initial encounter. Patient reports that signs and symptoms have been present for 1 day and indicates a pain score of 0/10. MEDICAL/SURGICAL HISTORY: Cardiovascular disease. Hypertension. None. COMPARISON: [facility] [place], MR HEAD W/O CONTRAST, 05/03/2018. . TECHNIQUE: Multiplanar, multisequence examination of the brain was performed without contrast. FINDINGS: Cerebrum: The ventricles are normal for age. No evidence of midline shift, mass lesion, hemorrhage or acute infarction. No extraaxial fluid collections are seen. The pituitary gland and suprasellar cistern are normal in configuration. White Matter: Scattered T2 hyperintensities are again noted through the subcortical and deep white m atter tracts. Posterior Fossa: The cerebellum and brainstem are intact. The 4th ventricle is midline. The cerebel lopontine angle is unremarkable. The cerebellar tonsils are normal in position. Diffusion Imaging: No focal areas of restricted diffusion are seen. No evidence of acute infarction . Extracranial: The visualized portions of the orbits and paranasal sinuses are unremarkable. CONCLUSION: 1. Stable chronic ischemic white matter changes. 2. No evidence of acute infarct, hemorrhage, mass or edema. 3. Stable exam compared to prior study on 05/03/2018. Electronically signed by: Dewayne Tirado MD 06/07/2018 8:19 PM EDT
[2018-06-07] MEDS: Temazepam 15 MG Capsule PO PRN (22:08)
--- NOTE | 2018-06-07 22:15 | MR ---
EXAM DATE: 06/07/2018 7:53 PM EDT AGE/SEX: 63 years / Male INDICATIONS: . Left shoulder pain. CLINICAL DATA: This is the patient's initial encounter. Patient reports that signs and symptoms have been present for 1 day and indicates a pain score of 4/10. MEDICAL/SURGICAL HISTORY: Cardiovascular disease. Hypertension. None. COMPARISON: [facility] [place]OR ABD AORTA W CONTRAST W 3D, 06/05/2018. . TECHNIQUE: Multiplanar, multisequence MRI examination was performed without contrast. FINDINGS: Rotator Cuff: The anterolateral attachment of the supraspinatus tendon on the humeral head demonstra shanika significant T2 hyperintensity without evidence of full-thickness tear or retraction. Abnormal sig nal intensity is present throughout the rotator cuff. Labrum: Significant deformity of the glenoid labrum is identified. The posterior labrum appears to b e at least partially displaced out of the joint. There is significant adjacent capsular distention. A nterior labral margin is slightly from the rim of the glenoid fossa. Marrow/Cartilage: Focal bone marrow edema with cortical depression is seen along the superolateral m argin of the humeral head. The edema extends throughout the greater tuberosity. Focal edema is also s een along the inferior glenoid rim. Other: A moderate size complex joint effusion is noted. There is significant periarticular inflammat ion as well as complex fluid collections along the subdeltoid bursa. Muscular edema is identified thr oughout the supraspinatus, infraspinatus and subscapularis muscles. CONCLUSION: 1. Complex joint effusion and periarticular fluid collections associated with a Hill-Sachs deformity and significant edema involving the humeral head, inferior rim of the glenoid fossa and periarticula r musculature. Findings are most characteristic of post dislocation traumatic injury. 2. Significant rotator cuff tendinopathy with abnormal T2 hyperintensity but no evidence of full-thi ckness tear or retraction. 3. Labral deformity characteristic of labral tear. 4. An infectious/inflammatory process may have similar findings and should also be considered. Electronically signed by: Dewayne Tirado MD 06/07/2018 10:14 PM EDT
[2018-06-08] MEDS: Levothyroxine 100 MCG Tablet PO SCH (05:46)
[2018-06-08] MEDS: metroNIDAZOLE 500 MG Tablet PO SCH ×3 (05:46→21:24)
[2018-06-08 07:33] LABS: Calcium 8.4 mg/dL (8.5-10.1); Carbon Dioxide 20.6 meq/L (21.0-32.0); Potassium 4.7 meq/L (3.5-5.1)
[2018-06-08] MEDS: Famotidine 20 MG Tablet PO SCH ×2 (09:31→21:24)
[2018-06-08] MEDS: Heparin - SQ 10,000 UNITS/ML Vial SQ SCH ×2 (09:31→21:32)
[2018-06-08] MEDS: hydrALAZINE 50 MG Tablet PO SCH ×3 (09:31→17:24)
--- NOTE | 2018-06-08 11:37 | P.PNNP ---
Subjective Interval history: Patient indicated to me that he was still having some anorexia and nausea. Oral intake marginal. Physical Exam Vital signs: Vital Signs 06/07/18 11:38 06/07/18 13:21 06/07/18 15:28 Temperature 98.4 F 97.8 F 97.7 F Pulse Rate 96 H 90 89 Respiratory Rate 16 17 16 Blood Pressure 154/74 H 154/70 H 134/69 Pulse Oximetry 97 97 97 06/07/18 20:00 06/08/18 00:00 06/08/18 04:00 Temperature 98.1 F 100.1 F H 99.4 F Pulse Rate 102 H 101 H 101 H Respiratory Rate 20 20 20 Blood Pressure 179/82 H 137/67 133/55 L Pulse Oximetry 97 96 92 L 06/08/18 08:00 Temperature 98.0 F Pulse Rate 86 Respiratory Rate 17 Blood Pressure 138/57 L Pulse Oximetry 93 L Intake & Output 06/07/18 06/08/18 06/08/18 18:59 06:59 18:59 Output Total 1850 / 1850 1100 / 1100 Balance -1850 / -1850 -1100 / -1100 Output: Urine 1100 / 1100 Urine Amount (Catheter) 1850 / 1850 Indwelling Urethral Catheter 1849 Other: Date of Last Bowel Movement 06/06/18 Narrative: GENERAL: Patient lying in bed not in respiratory distress. Mucous membranes moist SKIN: Warm and dry. HEAD: Normocephalic. EYES: No scleral icterus. No injection or drainage. NECK: Supple, trachea midline. No JVD or lymphadenopathy. CARDIOVASCULAR: Regular rate and rhythm without murmurs, gallops, or rubs. RESPIRATORY: Breath sounds equal bilaterally. No accessory muscle use. GASTROINTESTINAL: Abdomen soft, non-tender, nondistended. - Urinary Catheter Management Indwelling Urethral Catheter Cath placed during this visit: yes Reason for continuing: Acute urinary retention Insertion date: 06/06/18 Insertion time: 06:51 Assessment and Plan - Assessment (1) Acute renal insufficiency Code(s): N28.9 - Disorder of kidney and ureter, unspecified Status: Acute Plan: Renal indices continue to improve with IV hydration. Recommend discontinuance of IV fluids once oral intake reestablished and adequate. Continue also to hold diuretic until renal indices back to normal and oral intake reestablished. Nothing new to add to current management at this time. We will sign off. Please recall if needed for this admission. Noted 45-50% left long segment stenosis of the left renal artery on CTA, but not cause of renal decline. Medications should be adjusted for the patient's renal decline. Avoid iodinated contrast dyes and NSAIDs. Avoid gadolinium when eGFR <30. (2) Abdominal pain Code(s): R10.9 - Unspecified abdominal pain Status: Acute (3) Cardiomyopathy Code(s): I42.9 - Cardiomyopathy, unspecified Status: Acute Plan: Echo 05/03/18 showing EF 30-35% Decrease IV hydration with close monitoring of volume status. Clinically dehydrated on today's exam. (4) Atherosclerotic heart disease of [place] coronary artery without angina pectoris Code(s): I25.10 - Atherosclerotic heart disease of [place] coronary artery without angina pectoris Status: Acute Plan: Hx of IA and PTCA per charts. Pt reports he does not have an outpatient quality control chemist.
--- NOTE | 2018-06-08 12:32 | P.PN ---
Subjective Interval history: Patient reports he has not been eating as he is worried it will upset his stomach Last BM yesterday after eating Physical Exam Vital signs: Vital Signs 06/07/18 13:21 06/07/18 15:28 06/07/18 20:00 Temperature 97.8 F 97.7 F 98.1 F Pulse Rate 90 89 102 H Respiratory Rate 17 16 20 Blood Pressure 154/70 H 134/69 179/82 H Pulse Oximetry 97 97 97 06/08/18 00:00 06/08/18 04:00 06/08/18 08:00 Temperature 100.1 F H 99.4 F 98.0 F Pulse Rate 101 H 101 H 86 Respiratory Rate 20 20 17 Blood Pressure 137/67 133/55 L 138/57 L Pulse Oximetry 96 92 L 93 L Intake & Output 06/07/18 06/08/18 06/08/18 18:59 06:59 18:59 Output Total 1850 / 1850 1100 / 1100 Balance -1850 / -1850 -1100 / -1100 Output: Urine 1100 / 1100 Urine Amount (Catheter) [id number] Indwelling Urethral Catheter 1849 Other: Date of Last Bowel Movement 06/06/18 Narrative: GENERAL: Patient lying in bed not in respiratory distress. SKIN: Warm and dry. HEAD: Normocephalic. EYES: No scleral icterus. No injection or drainage. NECK: Supple, trachea midline. No JVD or lymphadenopathy. CARDIOVASCULAR: Regular rate and rhythm RESPIRATORY: Breath sounds equal bilaterally. No accessory muscle use. GASTROINTESTINAL: Abdomen soft, non-tender, nondistended. - Urinary Catheter Management Indwelling Urethral Catheter Cath placed during this visit: yes Reason for continuing: Acute urinary retention Insertion date: 06/06/18 Insertion time: 06:51 Results - Labs CBC & Chem 7: 06/07/18 06:20 06/08/18 05:19 Laboratory Results - last 24 hr 06/07/18 06/07/18 06/08/18 10:38 12:34 05:19 Sodium 135 L Potassium 4.7 Chloride 103 Carbon Dioxide 20.6 L Anion Gap 11 BUN 23 H Creatinine 1.36 H Estimated GFR 53 L POC Glucose 115 H Random Glucose 91 Calcium 8.4 L Stl C.difficile Tox PCR Positive H St C. diff Tox Epid 027 Negative Microbiology 06/05/18 22:15 Blood - Peripheral Aerobic Blood Culture - Preliminary No growth in 3 days 06/05/18 22:15 Blood - Peripheral Anaerobic Blood Culture - Preliminary No growth in 3 days 06/05/18 22:10 Blood - Peripheral Aerobic Blood Culture - Preliminary No growth in 3 days 06/05/18 22:10 Blood - Peripheral Anaerobic Blood Culture - Preliminary No growth in 3 days - Imaging Impressions Head MRI 06/07/18 00:00 CONCLUSION: 1. Stable chronic ischemic white matter changes. 2. No evidence of acute infarct, hemorrhage, mass or edema. 3. Stable exam compared to prior study on 05/03/2018. Shoulder MRI 06/07/18 00:00 CONCLUSION: 1. Complex joint effusion and periarticular fluid collections associated with a Hill-Sachs deformity and significant edema involving the humeral head, inferior rim of the glenoid fossa and periarticular musculature. Findings are most characteristic of post dislocation traumatic injury. 2. Significant rotator cuff tendinopathy with abnormal T2 hyperintensity but no evidence of full-thickness tear or retraction. 3. Labral deformity characteristic of labral tear. 4. An infectious/inflammatory process may have similar findings and should also be considered. Assessment and Plan - Plan 63 years old male Acute renal failure- renal functioning gradually trending down - -baseline 1.0 - continue IVF- creatinine trending down - as OP was on Furosemide and Aldactone- on hold for now -Renal ultrasound normal -Nephrology consulted, appreciate recommendations -continue gentle IV fluid hydration-with history of cardiomuopathy EF- 30-35% -BMP in AM C diff colitis Poor po - patient still having abdominal/epigastric pain with poor po - start Flagyl 500 mg po tid 06/07 and monitor BMs - Dietitian consult for poor PO in take and possible calorie count - also consult speech for swallow eval - abdominal exam- benign, pain maybe from colitis- if persist- consider imaging studies - continue IVF Elevated LFTs- this are stable and acutally trending down from previous admission 04/2018 - likely from Chronic passive congestion from CMP Concern for dissecting aneurysm on arrival to the emergency department as patient with severe abdominal pain that radiated to the back - Thoracic aorta CTA negative for aneurysmal disease Hypothyroidism/history of myxedema, - TSH within normal limits, continue home Synthroid 175 mcg po daily Hypertension/CAD Cardiomyopathy- not in clinical failure - cotninue meds-Hydralazine - Furosemide/Aldactone/Lisinorpil on hold for now-with KATIE - reintroduced diuretics/HERACLIO gradually in next few days as renal indices improved Left UE weakness - shoulder pain- strength- arm -weak- just drop on exam ? acute- per patient -3-4 months - doubt CVA but will get MRI of the head - Head MRI 06/07/18 1. Stable chronic ischemic white matter changes. 2. No evidence of acute infarct, hemorrhage, mass or edema. 3. Stable exam compared to prior study on 05/03/2018. - MRI of the shoulder Shoulder MRI 06/07/18 00:00 1. Complex joint effusion and periarticular fluid collections associated with a Hill-Sachs deformity and significant edema involving the humeral head, inferior rim of the glenoid fossa and periarticular musculature. Findings are most characteristic of post dislocation traumatic injury. 2. Significant rotator cuff tendinopathy with abnormal T2 hyperintensity but no evidence of full-thickness tear or retraction. 3. Labral deformity characteristic of labral tear. 4. An infectious/inflammatory process may have similar findings and should also be considered. - consult orthopedic surgery - PT/OT consult PT consult- put of bed to chair Heparin SQ PPI Discussed case with supervising physician Dr. Desouza
[2018-06-08] MEDS: Sod Chloride 0.9% Inj 1,000 ML IV.CONT SCH (13:54)
--- NOTE | 2018-06-08 16:22 | P.DIET ---
Nutritional Evaluation Type of nutrition evaluation: initial Nutrition consult regarding: Diet Evaluation Nutrition screening: [facility] [place] Screening comments: 06/08/18 [facility] [place] [facility] Calorie Counting 06/07/18 [facility] [place] Poor PO Intake Subjective Oral Diet Tolerance Assessment Indicates: Chewing problems Subjective Comments: Pt says he has worn top dentures for 45-years and removed them for a few days, prior to this admission, and then the dentures didnt fit when he tried to wear them. Pt also reports recent wt gain and wt loss. Approximately one year ago pt reports increased wt to 300-lb then wt loss during previous hospital admission here 05/03/18 to current wt. A review of previous hospital stay here w/an admission wt of 134.71 kg and a discharge wt on 05/11/18 of 120.4kg. Pt reports foods tasting like "metal" for the last years. Pt and ARPITA Doe informed that a Calorie Count has been started. Objective - Diagnosis Acute Renal Failure, Abdominal Pain, Vomiting - Objective [facility] body weight: 86.4 kg % IBW: 110 Body Weight Used for Calculations: Actual (95.254 kg(210-lb)) Energy Needs - Lower Range (kCal/kg): 22 Energy Needs - Upper Range (kCal/kg): 27 Lower Limit kCal/kg (kCals): 2,096 Upper Limit kCal/kg (kCals): 2,572 Lower Limit Protein Factor (Grams per Kg): 1.0 Upper Limit Protein Factor (Grams per Kg): 1.3 Lower Protein Needs (Protein): 95 Upper Protein Needs (Protein): 124 Dietitian Reviewed in Medical Record: Current diet, Curent medications, Intake & Output, Labs, Medical history Diet Order: Cardiac [facility] Soft Thin Liquids Oral Diet Intake Amount: Poor <50% Speech Therapy Recommendations: Yes Objective Comments: PMH: CAD, Anxiety, Cardiomyopathy, HTN, Hypothyroidism, Deafness Right ear Labs Include: BUN 23, Creatinine 1.36, estGFR 53, Random Glucose 91 Assessment Assessment: Pt is at nutritional risk r/t diagnosis, poor po intake and recent hospital stay w/wt loss. [facility] for Calorie Count, started 06/08 through 06/10 w/Nutrition Recs to follow 06/11. Send Mighty Shakes TID(= 300 kcal and 9g Protein per serving). Send Ensure Pudding TID(= 170 kcal and 4g Protein per serving). Labs reviewed-monitor renal labs closely. Dietitian following. Recommendations: 1. [facility] for Calorie Count, started 06/08 through 06/10 w/Nutrition Recs to follow 06/11 2. Send Mighty Shakes TID 3. Send Ensure Pudding TID 4. Dietitian following Dietitian to Monitor: Lab values, Renal labs, Supplement acceptance, Intake & Output, Weight change, PO Intake, Medical course
[2018-06-08] MEDS: Temazepam 15 MG Capsule PO PRN (21:31)
[2018-06-09 05:14] LABS: Baso # (Auto) 0.1 th/mm3 (0.0-0.2); Baso % (Auto) 0.9 % (0.0-2.0); Eos # (Auto) 0.8 th/mm3 (0.0-0.4); Eos % (Auto) 9.3 % (0.0-4.0); Hematocrit 29.2 % (39.0-51.0); Hemoglobin 9.8 gm/dL (13.0-17.0); Lymph # (Auto) 0.8 th/mm3 (1.0-4.8); Lymph % (Auto) 9.2 % (9.0-44.0); Mean Corpuscular HGB Conc 33.7 % (32.0-36.0); Mean Corpuscular Hemoglobin 31.2 pg (27.0-34.0); Mean Corpuscular Volume 92.6 fL (80.0-100.0); Mean Platelet Volume 9.4 fL (7.0-11.0); Mono # (Auto) 0.5 th/mm3 (0.0-0.9); Mono % (Auto) 5.6 % (0.0-8.0); Neut # (Auto) 6.1 th/mm3 (1.8-7.7); Platelet Count 378 th/mm3 (150-450); Red Blood Count 3.15 mil/mm3 (4.50-5.90); Red Cell Distribution Width 16.7 % (11.6-17.2); White Blood Count 8.2 th/mm3 (4.0-11.0)
[2018-06-09 05:19] LABS: Calcium 8.4 mg/dL (8.5-10.1); Carbon Dioxide 23.3 meq/L (21.0-32.0); Potassium 4.6 meq/L (3.5-5.1)
[2018-06-09] MEDS: Levothyroxine 100 MCG Tablet PO SCH (05:39)
[2018-06-09] MEDS: metroNIDAZOLE 500 MG Tablet PO SCH (05:39)
--- NOTE | 2018-06-09 06:57 | P.PNOP ---
Subjective Interval history: Consulted for left shoulder pain. He states he has had difficulty moving the shoulder for approximately 6 months. He has weakness and pain. He denies any injuries. Physical Exam Vital signs: Vital Signs 06/08/18 08:00 06/08/18 12:00 06/08/18 16:00 Temperature 98.0 F 98.0 F 97.8 F Pulse Rate 86 110 H 89 Respiratory Rate 17 17 17 Blood Pressure 138/57 L 138/76 145/69 H Pulse Oximetry 93 L 94 L 95 06/08/18 20:32 06/09/18 00:26 06/09/18 04:55 Temperature 98.1 F 98.1 F 98.6 F Pulse Rate 97 H 97 H 98 H Respiratory Rate 18 17 18 Blood Pressure 160/73 H 136/67 160/77 H Pulse Oximetry 94 L 96 96 Intake & Output 06/08/18 06/08/18 06/09/18 06:59 18:59 06:59 Intake Total 1100 / 1100 580 / 580 Output Total 1100 / 1100 1475 / 1475 1600 / 1600 Balance -1100 / -1100 -375 / -375 -1020 / -1020 Weight 95 kg Intake: Oral 1100 / 1100 580 / 580 Output: Urine 1100 / 1100 1475 / 1475 1600 / 1600 Other: Date of Last Bowel Movement 06/07/18 Narrative: Right upper extremity: Full range of motion neurovascular intact Bilateral lower extremities: Full range of motion neurovascularly intact Left upper extremity: Pain to palpation proximal humerus. Actively I can forward flex to 90 he is only able to actively forward flex to 30. Full range of motion elbow wrist and fingers. Distally has intact sensation over the radial ulnar median nerve distributions with good capillary refills. He can fully extend his fingers make a fist - Urinary Catheter Management Indwelling Urethral Catheter Cath placed during this visit: yes Reason for continuing: Acute urinary retention Insertion date: 06/06/18 Insertion time: 06:51 Results - Labs CBC & Chem 7: 06/09/18 04:02 06/09/18 04:02 Laboratory Results - last 24 hr 06/08/18 06/09/18 06/09/18 05:19 04:02 04:02 WBC 8.2 RBC 3.15 L Hgb 9.8 L Hct 29.2 L MCV 92.6 MCH 31.2 MCHC 33.7 RDW 16.7 Plt Count 378 MPV 9.4 Neut % (Auto) 75.0 H Lymph % (Auto) 9.2 Esmeralda % (Auto) 5.6 Eos % (Auto) 9.3 H Baso % (Auto) 0.9 Neut # (Auto) 6.1 Lymph # (Auto) 0.8 L Esmeralda # (Auto) 0.5 Eos # (Auto) 0.8 H Baso # (Auto) 0.1 WBC Differential . Differential Comment Auto diff final Sodium 135 L 136 Potassium 4.7 4.6 Chloride 103 103 Carbon Dioxide 20.6 L 23.3 Anion Gap 11 10 BUN 23 H 14 Creatinine 1.36 H 1.16 Estimated GFR 53 L 64 L Random Glucose 91 99 Calcium 8.4 L 8.4 L Microbiology 06/05/18 22:15 Blood - Peripheral Aerobic Blood Culture - Preliminary No growth in 3 days 06/05/18 22:15 Blood - Peripheral Anaerobic Blood Culture - Preliminary No growth in 3 days 06/05/18 22:10 Blood - Peripheral Aerobic Blood Culture - Preliminary No growth in 3 days 06/05/18 22:10 Blood - Peripheral Anaerobic Blood Culture - Preliminary No growth in 3 days Assessment and Plan - Assessment and Plan Adhesive capsulitis left shoulder Occupational therapy to work with passive and active range of motion shoulder. Weightbearing as tolerated left shoulder MRI does show abnormalities of glenoid and humeral head but will continue to treat this conservatively with weightbearing as tolerated. After discharge patient may follow-up with Dr. Edenilson De Santiago if he continues to have decreased range of motion of the shoulder and pain
--- NOTE | 2018-06-09 07:31 | P.CONOP ---
[facility] Orthopedics Consult Note - [facility] Consult date: 06/09/18 Chief complaint: Acute renal failure; left shoulder pain Narrative: Lew is a 63-year-old male who has multiple medical problems. He has coronary artery disease, and history of respiratory failure. He was in the emergency room initially for abdominal pain. During his hospital stay he has complained of left shoulder pain. He states that he has had left shoulder pain for over 6 months. He has noticed weakness and stiffness of the shoulder. He denies any falls or traumatic injuries. His current symptoms have not significantly changed over the past 6 months. Pain is worse with movement and is improved with rest. Review of Systems Patient denies fevers, chills, weight loss, headache, visual changes, hearing loss, chest pain, palpitations, nausea, vomiting, no urinary changes, diarrhea , bowel changes, neck pain, back pain, skin rashes, weakness of extremities, easy bleeding, enlarged lymph nodes, numbness of extremities, anxiety, or depression. He has a history of shortness of breath. He complains of left shoulder pain and weakness. [facility] - History History Provided By: Patient - Medical History Medical History: Medical History (Last Reviewed 06/08/18 @ 14:42 by James Waite) Cardiomyopathy Hypothyroid Anxiety CAD (coronary artery disease) Deafness in right ear Hypertension Surgical history unknown - Family History Family History: Family History (Last Updated 04/30/18 @ 01:53 by Cinthya Royal MD) Other Family history unknown - Tobacco History Second Hand Smoke Exposure: Yes Tobacco Use In Past 30 Days: Yes Smoking Status: Heavy tobacco smoker Tobacco Type: Cigarettes - Alcohol History How Often Do You Have a Drink Containing Alcohol: Never - Substance Use History Substance History: No History of Abuse - Travel History Recent Travel in the [facility] Within the Last 8 Weeks: No Recent Travel Out of the Country Within the Last 8 Weeks: No - Immunization History Tetanus Immunization: Unsure Medications and Allergies Active Medications: Active Medications Acetaminophen (Tylenol) 650 mg PO Q4H PRN PRN Reason: Temp > 100.4 Al Hydroxide/Mg Hydroxide (Milk Of Magnesia Liq) 30 ml PO Q12H PRN PRN Reason: Mild Constipation Aspirin (Aspirin Chew) 81 mg PO DAILY [facility] Last Admin: 06/08/18 09:31 Dose: 81 mg Bisacodyl (Dulcolax Supp) 10 mg RECTAL DAILY PRN PRN Reason: SEVERE CONSITIPATION Clonidine HCl (Catapres) 0.1 mg PO Q8H [facility] Last Admin: 06/09/18 05:39 Dose: 0.1 mg Famotidine (Pepcid) 10 mg PO BID [facility] Last Admin: 06/08/18 21:24 Dose: 10 mg Furosemide (Lasix) 40 mg PO DAILY [facility] Last Admin: 06/06/18 12:17 Dose: 40 mg Heparin Sodium (Porcine) (Heparin Inj) 5,000 units SQ Q12H [facility] Last Admin: 06/08/18 21:32 Dose: 5,000 units Hydralazine HCl (Apresoline) 50 mg PO TID [facility] Last Admin: 06/08/18 17:24 Dose: 50 mg Sodium Chloride (Ns Inj) 1,000 mls @ 50 mls/hr IV.CONT .Q20H [facility] Last Admin: 06/08/18 13:54 Dose: Not Given Lactulose (Lactulose Liq) 30 ml PO DAILY PRN PRN Reason: SEVERE CONSITIPATION Levothyroxine Sodium (Synthroid) 100 mcg PO DAILY@0600 [facility] Last Admin: 06/09/18 05:39 Dose: 100 mcg Metronidazole (Flagyl) 500 mg PO Q8HR [facility] Last Admin: 06/09/18 05:39 Dose: 500 mg Ondansetron HCl (Zofran Inj) 4 mg IV.PUSH Q6H PRN PRN Reason: NAUSEA OR VOMITING Sennosides (Senokot) 17.2 mg PO Q12H PRN PRN Reason: Moderate Constipation Sodium Chloride (Ns Flush) 2 ml IV.FLUSH PRN PRN PRN Reason: FLUSH AFTER USING IV ACCESS Last Admin: 06/07/18 08:26 Dose: 2 ml Spironolactone (Aldactone) 25 mg PO DAILY [facility] Last Admin: 06/06/18 12:15 Dose: 25 mg Temazepam (Restoril) 15 mg PO HS PRN PRN Reason: INSOMNIA Last Admin: 06/08/18 21:31 Dose: 15 mg Allergies Allergy/AdvReac Type Severity Reaction Status Date / Time pollen extracts Allergy Mild Congestion Verified 06/05/18 22:06 Home Medications Medication Instructions Recorded Confirmed Type aspirin 81 mg PO DAILY 06/05/18 06/05/18 History clonidine HCl 0.1 mg PO TID 06/05/18 06/05/18 History diphenhydramine HCl 25 mg PO BID PRN 06/05/18 06/05/18 History Exam Vital signs: Vital Signs 06/08/18 08:00 06/08/18 12:00 06/08/18 16:00 Temperature 98.0 F 98.0 F 97.8 F Pulse Rate 86 110 H 89 Respiratory Rate 17 17 17 Blood Pressure 138/57 L 138/76 145/69 H Pulse Oximetry 93 L 94 L 95 06/08/18 20:32 06/09/18 00:26 06/09/18 04:55 Temperature 98.1 F 98.1 F 98.6 F Pulse Rate 97 H 97 H 98 H Respiratory Rate 18 17 18 Blood Pressure 160/73 H 136/67 160/77 H Pulse Oximetry 94 L 96 96 Intake & Output 06/08/18 06/09/18 06/09/18 18:59 06:59 18:59 Intake Total 1100 / 1100 580 / 580 Output Total 1475 / 1475 1600 / 1600 Balance -375 / -375 -1020 / -1020 Weight 95 kg Intake: Oral 1100 / 1100 580 / 580 Output: Urine 1475 / 1475 1600 / 1600 Other: Date of Last Bowel Movement 06/07/18 Narrative: Lew is a 63-year-old male. He is awake. General: Awake and alert. No acute distress. Appears well-developed well- nourished Head: Normocephalic, atraumatic pupils are equal Neck: Soft, nontender, trachea midline Abdomen: Soft, nondistended Examination of right arm reveals no pain or deformity with shoulder, elbow, or wrist motion. Skin is intact. Radial pulse is palpable. Normal capillary refill in fingers. Sensation is intact in radial, ulnar, and median nerve distributions. [employer] strength is +5 bilaterally. No lymphadenopathy noted. Examination of left arm reveals no pain with elbow wrist or finger motion. Skin is intact. Radial pulses palpable. Sensation is intact in radial, ulnar, and median nerve distributions. [employer] strength is +5. Examination of his shoulder reveals active forward flexion up to 70 with passive forward flexion up to 90. He has pain with impingement test. Results - Labs Result Diagrams: 06/09/18 04:02 06/09/18 04:02 Labs: Laboratory Results - last 24 hr 06/08/18 06/09/18 06/09/18 05:19 04:02 04:02 WBC 8.2 RBC 3.15 L Hgb 9.8 L Hct 29.2 L MCV 92.6 MCH 31.2 MCHC 33.7 RDW 16.7 Plt Count 378 MPV 9.4 Neut % (Auto) 75.0 H Lymph % (Auto) 9.2 Drew % (Auto) 5.6 Eos % (Auto) 9.3 H Baso % (Auto) 0.9 Neut # (Auto) 6.1 Lymph # (Auto) 0.8 L Drew # (Auto) 0.5 Eos # (Auto) 0.8 H Baso # (Auto) 0.1 WBC Differential . Differential Comment Auto diff final Sodium 135 L 136 Potassium 4.7 4.6 Chloride 103 103 Carbon Dioxide 20.6 L 23.3 Anion Gap 11 10 BUN 23 H 14 Creatinine 1.36 H 1.16 Estimated GFR 53 L 64 L Random Glucose 91 99 Calcium 8.4 L 8.4 L - Diagnostic results Shoulder MRI: report reviewed, image reviewed Assessment and Plan - Problem List (1) Chronic left shoulder pain Code(s): M25.512 - Pain in left shoulder; G89.29 - Other chronic pain Status: Acute - Assessment and Plan Lew has a six-month history of left shoulder pain and stiffness. He denies any traumatic injuries. Treatment options were discussed. I would recommend conservative nonsurgical treatment. He has developed adhesive capsulitis left shoulder --Occupational therapy to work with passive and active range of motion shoulder. Weightbearing as tolerated left shoulder MRI does show abnormalities of glenoid and humeral head but will continue to treat this conservatively with weightbearing as tolerated. After discharge patient may follow-up with Dr. Edenilson De Santiago if he continues to have decreased range of motion of the shoulder and pain
[2018-06-09] MEDS: Heparin - SQ 10,000 UNITS/ML Vial SQ SCH (10:20)
[2018-06-09] MEDS: Sod Chloride 0.9% Inj 1,000 ML IV.CONT SCH (10:20)
[2018-06-09] MEDS: Famotidine 20 MG Tablet PO SCH (10:20)
[2018-06-09] MEDS: hydrALAZINE 50 MG Tablet PO SCH ×2 (10:20→12:48)
[2018-06-09] MEDS ORDERED: Lisinopril 20 MG Tablet PO SCH (12:00)
--- NOTE | 2018-06-09 12:14 | P.DS ---
<Freda Morales W - Last Filed: 06/09/18 14:52> Date of admission: 06/06/18 03:47 Primary care physician: No Primary Care Physician Attending physician on discharge: Brian Desouza Anticipated date of discharge: 06/09/18 Brief History from admission: 63-year-old male with a past medical history significant for coronary artery disease, hypertension, hypothyroidism and recent hospitalization for myxedema coma with respiratory failure requiring intubation and a prolonged hospital course presents to the emergency department for evaluation of abdominal pain. The patient states that he has had crampy abdominal pain that waxes and wanes for weeks. He endorses nausea, vomiting, diarrhea and states he has been unable to eat, sleep and has become subsequently almost completely bed bound secondary to these symptoms. He denies any fever/chills. No chest pain or shortness of breath. No lateralizing signs/symptoms. The patient reports compliance with all of his medications except for his steroid Dosepak and his lisinopril stating with the pharmacist told him these medications were not compatible with the remainder of his meds. He also states that upon his discharge from the hospital he only felt good for less than a week before the symptoms started. He reports compliance with his Synthroid. TSH today 1.150. DS: Diagnosis - Discharge Diagnosis (1) C. difficile diarrhea Status: Acute DS: Medications - Discharge Medications Prescriptions: clonidine HCl 0.1 mg PO TID 30 Days #90 tab furosemide [Lasix] 20 mg PO DAILY 30 Days #30 tab hydralazine 50 mg PO TID 30 Days #90 tab levothyroxine [Synthroid] 75 mcg PO DAILY@0600 30 Days #30 tab levothyroxine [Synthroid] 100 mcg PO DAILY@0600 30 Days #30 tab vancomycin 125 mg PO QID 14 Days each DS: Summary Hospital Course: 63 years old male Acute renal failure- renal functioning gradually trending down - -baseline 1.0 - continue IVF- creatinine trending down - as OP was on Furosemide and Aldactone- on hold -Renal ultrasound normal -Nephrology consulted, appreciate recommendations -continue gentle IV fluid hydration-with history of cardiomyopathy EF- 30-35% -creatine 1.12 - Will DC with lower dose of furosemide - patient to have BMP in 3-5 days and follow up with PCP in 1 week C diff colitis Poor po - patient still having abdominal/epigastric pain with poor po - start Flagyl 500 mg po tid 06/07 and monitor BMs - Dietitian consult for poor PO in take and possible calorie count - also consult speech for swallow eval - abdominal exam- benign, pain maybe from colitis- if persist- consider imaging studies - continue IVF - patient has had no BMs today but complaining of metallic taste with eating, will DC Flagyl due to side effect of metallic taste possibly causing his metallic taste symptom - start Oral Vancomycin Elevated LFTs- this are stable and actually trending down from previous admission 04/2018 - likely from Chronic passive congestion from [facility] Concern for dissecting aneurysm on arrival to the emergency department as patient with severe abdominal pain that radiated to the back - Thoracic aorta CTA negative for aneurysmal disease Hypothyroidism/history of myxedema, - TSH within normal limits, continue home Synthroid 175 mcg po daily Hypertension/CAD Cardiomyopathy- not in clinical failure - cotninue meds-Hydralazine - Furosemide/Aldactone/Lisinorpil on hold for now-with KATIE - reintroduced diuretics/HERACLIO gradually in next few days as renal indices improved Left UE weakness - shoulder pain- strength- arm -weak- just drop on exam ? acute- per patient -3-4 months - doubt CVA but will get MRI of the head - Head MRI 06/07/18 1. Stable chronic ischemic white matter changes. 2. No evidence of acute infarct, hemorrhage, mass or edema. 3. Stable exam compared to prior study on 05/03/2018. - MRI of the shoulder Shoulder MRI 06/07/18 00:00 1. Complex joint effusion and periarticular fluid collections associated with a Hill-Sachs deformity and significant edema involving the humeral head, inferior rim of the glenoid fossa and periarticular musculature. Findings are most characteristic of post dislocation traumatic injury. 2. Significant rotator cuff tendinopathy with abnormal T2 hyperintensity but no evidence of full-thickness tear or retraction. 3. Labral deformity characteristic of labral tear. 4. An infectious/inflammatory process may have similar findings and should also be considered. - consult orthopedic surgery, recommends no surgical intervention at this time, follow up with Dr. De Santiago after DC - PT/OT consult Heparin SQ PPI Patient no longer willing to stay in the hospital asking to be DC'd. Patient agrees to have BMP drawn in 3- 5 days and establish with PCP and follow up in 1 week or sooner. Discussed case with supervising physician Dr. Desouza - Time Spent with Patient Total time spent providing and/or coordinating discharge services: Greater than 30 minutes - Quality: VTE Deep Vein Thrombosis/Pulmonary Embolism Present on Admission: No Exam Vital signs: Vital Signs 06/08/18 12:00 06/08/18 16:00 06/08/18 20:32 Temperature 98.0 F 97.8 F 98.1 F Pulse Rate 110 H 89 97 H Respiratory Rate 17 17 18 Blood Pressure 138/76 145/69 H 160/73 H Pulse Oximetry 94 L 95 94 L 06/09/18 00:26 06/09/18 04:55 06/09/18 08:00 Temperature 98.1 F 98.6 F 97.8 F Pulse Rate 97 H 98 H 89 Respiratory Rate 17 18 17 Blood Pressure 136/67 160/77 H 160/73 H Pulse Oximetry 96 96 95 Intake & Output 06/08/18 06/09/18 06/09/18 18:59 06:59 18:59 Intake Total 1100 / 1100 580 / 580 Output Total 1475 / 1475 1600 / 1600 Balance -375 / -375 -1020 / -1020 Weight 95 kg Intake: Oral 1100 / 1100 580 / 580 Output: Urine 1475 / 1475 1600 / 1600 Other: Date of Last Bowel Movement 06/07/18 Narrative: GENERAL: Patient lying in bed, in no acute distress SKIN: Warm and dry. HEAD: Normocephalic. EYES: No scleral icterus. No injection or drainage. NECK: Supple, trachea midline. No JVD or lymphadenopathy. CARDIOVASCULAR: Regular rate and rhythm RESPIRATORY: Breath sounds equal bilaterally. No accessory muscle use. GASTROINTESTINAL: Abdomen soft, non-tender, nondistended. Results Procedures completed during hospitalization: None Labs on day of discharge: Labs from last 24 hours 06/09/18 06/09/18 04:02 04:02 WBC 8.2 RBC 3.15 L Hgb 9.8 L Hct 29.2 L MCV 92.6 MCH 31.2 MCHC 33.7 RDW 16.7 Plt Count 378 MPV 9.4 Neut % (Auto) 75.0 H Lymph % (Auto) 9.2 Mobile % (Auto) 5.6 Eos % (Auto) 9.3 H Baso % (Auto) 0.9 Neut # (Auto) 6.1 Lymph # (Auto) 0.8 L Mobile # (Auto) 0.5 Eos # (Auto) 0.8 H Baso # (Auto) 0.1 WBC Differential . Differential Comment Auto diff final Sodium 136 Potassium 4.6 Chloride 103 Carbon Dioxide 23.3 Anion Gap 10 BUN 14 Creatinine 1.16 Estimated GFR 64 L Random Glucose 99 Calcium 8.4 L Preliminary micro results at discharge 06/05/18 22:15 Aerobic Blood Culture - Preliminary Blood - Peripheral No growth in 4 days Anaerobic Blood Culture - Preliminary No growth in 4 days 06/05/18 22:10 Aerobic Blood Culture - Preliminary Blood - Peripheral No growth in 4 days Anaerobic Blood Culture - Preliminary No growth in 4 days - Impressions ITS Impressions Chest X-Ray 06/05/18 22:08 CONCLUSION: No acute cardiopulmonary process. Thoracic Aorta CT 06/05/18 22:08 CONCLUSION: 1. Scattered athetotic calcification throughout the thoracoabdominal aorta with no aneurysmal disease. 2. Anatomic variant of the arch with the left vertebral emanating directly from the arch. Arch vessels are all patent. 3. 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 45-50% nonostial, long segment stenosis of the left renal artery. 4. Emphysematous changes most prominent in the apices. Faint groundglass density in the superior segment of the left lower lobe. Recommend noncontrasted CT scan of the chest in 3-6 months to ensure stability/resolution of this region. Abdomen/Bladder Ultrasound 06/06/18 00:00 CONCLUSION: 1. Normal renal sonogram. Head MRI 06/07/18 00:00 CONCLUSION: 1. Stable chronic ischemic white matter changes. 2. No evidence of acute infarct, hemorrhage, mass or edema. 3. Stable exam compared to prior study on 05/03/2018. Shoulder MRI 06/07/18 00:00 CONCLUSION: 1. Complex joint effusion and periarticular fluid collections associated with a Hill-Sachs deformity and significant edema involving the humeral head, inferior rim of the glenoid fossa and periarticular musculature. Findings are most characteristic of post dislocation traumatic injury. 2. Significant rotator cuff tendinopathy with abnormal T2 hyperintensity but no evidence of full-thickness tear or retraction. 3. Labral deformity characteristic of labral tear. 4. An infectious/inflammatory process may have similar findings and should also be considered. <Brian Desouza - Last Filed: 06/09/18 16:59> Date of admission: 06/06/18 03:47 Primary care physician: No Primary Care Physician DS: Summary - Time Spent with Patient Total time spent providing and/or coordinating discharge services: Exam Vital signs: Vital Signs 06/08/18 20:32 06/09/18 00:26 06/09/18 04:55 Temperature 98.1 F 98.1 F 98.6 F Pulse Rate 97 H 97 H 98 H Respiratory Rate 18 17 18 Blood Pressure 160/73 H 136/67 160/77 H Pulse Oximetry 94 L 96 96 06/09/18 08:00 06/09/18 12:00 Temperature 97.8 F 97.7 F Pulse Rate 89 96 H Respiratory Rate 17 16 Blood Pressure 160/73 H 147/66 H Pulse Oximetry 95 95 Intake & Output 06/08/18 06/09/18 06/09/18 18:59 06:59 18:59 Intake Total 1100 / 1100 580 / 580 Output Total 1475 / 1475 1600 / 1600 1075 / 1075 Balance -375 / -375 -1020 / -1020 -1075 / -1075 Weight 95 kg Intake: Oral 1100 / 1100 580 / 580 Output: Urine 1475 / 1475 1600 / 1600 350 / 350 Urine Amount (Catheter) 725 / 725 Indwelling Urethral Catheter 725 / 725 Other: Date of Last Bowel Movement 06/07/18 Results Labs on day of discharge: Labs from last 24 hours 06/09/18 06/09/18 04:02 04:02 WBC 8.2 RBC 3.15 L Hgb 9.8 L Hct 29.2 L MCV 92.6 MCH 31.2 MCHC 33.7 RDW 16.7 Plt Count 378 MPV 9.4 Neut % (Auto) 75.0 H Lymph % (Auto) 9.2 Mobile % (Auto) 5.6 Eos % (Auto) 9.3 H Baso % (Auto) 0.9 Neut # (Auto) 6.1 Lymph # (Auto) 0.8 L Mobile # (Auto) 0.5 Eos # (Auto) 0.8 H Baso # (Auto) 0.1 WBC Differential . Differential Comment Auto diff final Sodium 136 Potassium 4.6 Chloride 103 Carbon Dioxide 23.3 Anion Gap 10 BUN 14 Creatinine 1.16 Estimated GFR 64 L Random Glucose 99 Calcium 8.4 L Preliminary micro results at discharge 06/05/18 22:15 Aerobic Blood Culture - Preliminary Blood - Peripheral No growth in 4 days Anaerobic Blood Culture - Preliminary No growth in 4 days 06/05/18 22:10 Aerobic Blood Culture - Preliminary Blood - Peripheral No growth in 4 days Anaerobic Blood Culture - Preliminary No growth in 4 days - Impressions ITS Impressions Chest X-Ray 06/05/18 22:08 CONCLUSION: No acute cardiopulmonary process. Thoracic Aorta CT 06/05/18 22:08 CONCLUSION: 1. Scattered athetotic calcification throughout the thoracoabdominal aorta with no aneurysmal disease. 2. Anatomic variant of the arch with the left vertebral emanating directly from the arch. Arch vessels are all patent. 3. 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 45-50% nonostial, long segment stenosis of the left renal artery. 4. Emphysematous changes most prominent in the apices. Faint groundglass density in the superior segment of the left lower lobe. Recommend noncontrasted CT scan of the chest in 3-6 months to ensure stability/resolution of this region. Abdomen/Bladder Ultrasound 06/06/18 00:00 CONCLUSION: 1. Normal renal sonogram. Head MRI 06/07/18 00:00 CONCLUSION: 1. Stable chronic ischemic white matter changes. 2. No evidence of acute infarct, hemorrhage, mass or edema. 3. Stable exam compared to prior study on 05/03/2018. Shoulder MRI 06/07/18 00:00 CONCLUSION: 1. Complex joint effusion and periarticular fluid collections associated with a Hill-Sachs deformity and significant edema involving the humeral head, inferior rim of the glenoid fossa and periarticular musculature. Findings are most characteristic of post dislocation traumatic injury. 2. Significant rotator cuff tendinopathy with abnormal T2 hyperintensity but no evidence of full-thickness tear or retraction. 3. Labral deformity characteristic of labral tear. 4. An infectious/inflammatory process may have similar findings and should also be considered. Discharge Plan - Discharge Order Discharge Orders: Discharge Order (Routine); Ordered 06/09/18 Ordered By: Freda Morales - Discharge Details Anticipated Discharge Date: 06/09/18 - Physicians Team Primary Care Provider: Primary Care Physici,No Attending Provider: Brian Desouza Other Providers: Reyna Perez MD ; Devonte De Santiago MD ; García Severino MD
== END 2018-06-09 16:47 | disposition home or self-care (01) ==
LOC: NEPC 22:00 → NEDA 06-06 03:47 → NEPGCP 06-06 04:49 → N07 06-07 13:03
PROVIDERS: ADMIT Internal Medicine; ATTEND Internal Medicine

== ENCOUNTER 2018-06-23 12:15 | Observation (INO) ==
[2018-06-23] MEDS ORDERED: Sod Chloride 0.9% Inj 1,000 ML IV.SIG ONE (12:35)
[2018-06-23 12:59] LABS: Baso # (Auto) 0.1 th/mm3 (0.0-0.2); Baso % (Auto) 1.1 % (0.0-2.0); Eos # (Auto) 1.1 th/mm3 (0.0-0.4); Eos % (Auto) 14.3 % (0.0-4.0); Hematocrit 34.2 % (39.0-51.0); Hemoglobin 11.3 gm/dL (13.0-17.0); Lymph # (Auto) 0.9 th/mm3 (1.0-4.8); Lymph % (Auto) 11.1 % (9.0-44.0); Mean Corpuscular HGB Conc 33.1 % (32.0-36.0); Mean Corpuscular Hemoglobin 30.2 pg (27.0-34.0); Mono # (Auto) 1.1 th/mm3 (0.0-0.9); Mono % (Auto) 13.9 % (0.0-8.0); Neut # (Auto) 4.8 th/mm3 (1.8-7.7); Neut % (Auto) 59.6 % (16.0-70.0); Platelet Count 385 th/mm3 (150-450); Red Blood Count 3.75 mil/mm3 (4.50-5.90); Red Cell Distribution Width 16.4 % (11.6-17.2)
--- NOTE | 2018-06-23 13:02 | ED ---
HPI General Chief Complaint: Abdominal Pain Stated Complaint: ABD pain Time Seen by Provider: 06/23/18 12:23 Source: patient Mode of arrival: ambulatory Limitations: no limitations History of Present Illness HPI narrative: Patient is a 63-year-old male with past medical history of coronary disease, hypertension, hypothyroidism, presents to the emergency room for evaluation of C. difficile. Patient reports that he was recently hospitalized, reports that he was diagnosed with C. difficile but left AGAINST MEDICAL ADVICE. Patient reports that he was sent home with a prescription for 21 days of oral vancomycin, he is currently on day 13 of 21 days, patient reports that he is not feeling any better. Patient reports that since he was discharged from the hospital, he has not been able to eat or drink anything. Patient reports that he has been feeling dehydrated, reports that he feels miserable and is regretful for leaving AGAINST MEDICAL ADVICE. Related Data Home Medications Medication Instructions Recorded Confirmed aspirin 81 mg PO DAILY 06/05/18 06/23/18 vancomycin 125 mg PO QID 06/23/18 06/23/18 Previous Rx's Medication Instructions Recorded clonidine HCl 0.1 mg PO TID 30 Days #90 tab 06/09/18 furosemide [Lasix] 20 mg PO DAILY 30 Days #30 tab 06/09/18 hydralazine 50 mg PO TID 30 Days #90 tab 06/09/18 levothyroxine [Synthroid] 75 mcg PO DAILY@0600 30 Days #30 06/09/18 tab levothyroxine [Synthroid] 100 mcg PO DAILY@0600 30 Days #30 06/09/18 tab Allergies Allergy/AdvReac Type Severity Reaction Status Date / Time pollen extracts Allergy Mild Congestion Verified 06/23/18 12:19 Review of Systems ROS: all other systems reviewed are negative [facility] Medical History Medical History Anxiety (Acute) CAD (coronary artery disease) (Acute) Cardiomyopathy (Acute) Deafness in right ear (Acute) Hypertension (Acute) Hypothyroid (Acute) Surgical history unknown (Acute) Family History Family History Other Family history unknown Social History Social History Substance History: No History of Abuse Second Hand Smoke Exposure: Yes Smoking Status: Heavy tobacco smoker Tobacco Type: Cigarettes How Often Do You Have a Drink Containing Alcohol: Never Recent Travel in [facility] within the Last 8 Weeks: No Recent Out of Country Travel within the Last 8 Weeks: No Immunization History Tetanus Immunization: Unsure Hx Influenza Vaccine This Season: Yes Exam Narrative Exam Narrative: GENERAL: Mild distress SKIN: Focused skin assessment warm/dry. HEAD: Atraumatic. Normocephalic. EYES: Pupils equal and round. No scleral icterus. No injection or drainage. ENT: No nasal bleeding or discharge. Mucous membranes pink and moist. NECK: Trachea midline. No JVD. CARDIOVASCULAR: Regular rate and rhythm. No murmur appreciated. RESPIRATORY: No accessory muscle use. Clear to auscultation. Breath sounds equal bilaterally. GASTROINTESTINAL: Abdomen soft, non-tender, nondistended. Hepatic and splenic margins not palpable. MUSCULOSKELETAL: No obvious deformities. No clubbing. No cyanosis. No edema. NEUROLOGICAL: Awake and alert. No obvious cranial nerve deficits. Motor grossly within normal limits. Normal speech. PSYCHIATRIC: Appropriate mood and affect; insight and judgment normal. Course Initial Documented Vital Signs Temperature 97.8 F 06/23/18 12:20 Pulse Rate 108 H 06/23/18 12:20 Respiratory Rate 21 06/23/18 12:20 Blood Pressure 149/59 H 06/23/18 12:20 Pulse Oximetry 98 06/23/18 12:20 Last Documented Vital Signs Temperature 97.8 F 06/23/18 12:20 Pulse Rate 108 H 06/23/18 12:20 Respiratory Rate 21 06/23/18 12:20 Blood Pressure 149/59 H 06/23/18 12:20 Pulse Oximetry 98 06/23/18 12:20 Medical Decision Making MDM Narrative Medical decision making narrative: During the course of the patients emergency department visit, the patients history, examination, and differential diagnosis were reviewed with the patient. The patient was placed on a public welfare director with oximetry and frequent blood pressure monitoring. The patient had an IV access obtained and blood work sent for analysis. The patient was initially provided IVF I did review previous records, patient was discharged with script for oral vancomycin as well as flagyl po tid until 06/07/18. he did not leave the hospital AMA. He also had acute renal failure at that time as baseline creatine was 1.0. There was gentle hydration as he has history of cardiomyopathy with an EF of 30-35%. He was supposed to follow up with a pcp in 1 week or sooner for repeat labs - he has not followed up. labs reviewed -patient unable to give a stool sample. Patient with a sodium 128 , creatinine 1.43, patient will require admission to the hospital for observation at this time. Case reviewed with Dr. Mcmanus who accepts pt to service Medical Screen Exam Complete: Yes Emergency Medical Condition: Yes Differential Diagnosis Differential Diagnosis: electrolyte abnormality, c.diff, uti Medical Records Medical records reviewed: Yes I reviewed the patient's medical records. Lab Data Lab results reviewed: Yes I reviewed the patient's lab results. Result diagrams: 06/23/18 12:46 06/23/18 12:46 Lab Results 06/23/18 06/23/18 Range/Units 12:46 12:46 WBC 8.0 (4.0-11.0) th/mm3 RBC 3.75 L (4.50-5.90) mil/mm3 Hgb 11.3 L (13.0-17.0) gm/dL Hct 34.2 L (39.0-51.0) % MCV 91.0 (80.0-100.0) fL MCH 30.2 (27.0-34.0) pg MCHC 33.1 (32.0-36.0) % RDW 16.4 (11.6-17.2) % Plt Count 385 (150-450) th/mm3 MPV 9.0 (7.0-11.0) fL Prelim Diff (Auto) Slide review pending Neut % (Auto) 59.6 (16.0-70.0) % Lymph % (Auto) 11.1 (9.0-44.0) % [place] % (Auto) 13.9 H (0.0-8.0) % Eos % (Auto) 14.3 H (0.0-4.0) % Baso % (Auto) 1.1 (0.0-2.0) % Neut # (Auto) 4.8 (1.8-7.7) th/mm3 Lymph # (Auto) 0.9 L (1.0-4.8) th/mm3 [place] # (Auto) 1.1 H (0.0-0.9) th/mm3 Eos # (Auto) 1.1 H (0.0-0.4) th/mm3 Baso # (Auto) 0.1 (0.0-0.2) th/mm3 WBC Differential Manual diff final Seg Neuts % (Manual) 56 (16-70) % Band Neuts % (Manual) 10 H (0-6) % Lymphocytes % (Manual) 8 L (9-44) % Monocytes % (Manual) 10 H (0-8) % Eosinophils % (Manual) 15 H (0-4) % Basophils % (Manual) 1 (0-2) % Abs Neuts (Manual) 5.3 (1.8-7.7) th/mm3 Differential Comment . Platelet Estimate Normal (Normal) Platelet Morphology Normal (Normal) Sodium 128 L (136-145) meq/L Potassium 3.6 (3.5-5.1) meq/L Chloride 95 L (98-107) meq/L Carbon Dioxide 20.8 L (21.0-32.0) meq/L Anion Gap 12 (5-15) meq/L BUN 20 H (7-18) mg/dL Creatinine 1.43 H (0.60-1.30) mg/dL Estimated GFR 50 L (>89) mL/min Random Glucose 98 (74-106) mg/dL Calcium 8.3 L (8.5-10.1) mg/dL Total Bilirubin 0.5 (0.2-1.0) mg/dL AST 67 H (15-37) U/L ALT 102 H (12-78) U/L Alkaline Phosphatase 320 H (45-117) U/L Total Protein 6.7 (6.4-8.2) g/dL Albumin 2.4 L (3.4-5.0) g/dL Lipase 174 (73-393) U/L Imaging Data Attestation: I personally reviewed and interpreted this imaging study as follows : Radiologist's impression: Abdomen/Pelvis CT 06/23/18 13:21 CONCLUSION: 1. No evidence of acute process. 2. No evidence of suspicious mass or lymphadenopathy. 3. Prostate calcification. Discharge Plan Discharge Disposition Patient Disposition: 30 Still Patient Discharge Condition Condition: Fair Discharge Details Diagnosis: Acute hyponatremia, Acute renal insufficiency Physicians Team ED Provider: Cinthya Freed Primary Care Provider: Primary Care IvonneiAdenike Rxs /Orders / Referrals /Forms Prescriptions: No Action aspirin 81 mg Tablet,Chewable 81 mg PO DAILY RF: 0 clonidine HCl 0.1 mg Tablet 0.1 mg PO TID 30 Days Qty: 90 RF: 0 levothyroxine [Synthroid] 75 mcg Tablet 75 mcg PO DAILY@0600 30 Days Qty: 30 RF: 0 levothyroxine [Synthroid] 100 mcg Tablet 100 mcg PO DAILY@0600 30 Days Qty: 30 RF: 0 hydralazine 50 mg Tablet 50 mg PO TID 30 Days Qty: 90 RF: 0 furosemide [Lasix] 20 mg Tablet 20 mg PO DAILY 30 Days Qty: 30 RF: 0 vancomycin 125 mg Capsule 125 mg PO QID RF: 0 Status ED Status: Admitted Observation Patient
[2018-06-23] MEDS: Sod Chloride 0.9% Inj 1,000 ML IV.SIG SCH (13:12)
[2018-06-23 13:17] LABS: Alanine Aminotransferase 102 U/L (12-78)
[2018-06-23 13:19] LABS: Alkaline Phosphatase 320 U/L (45-117); Total Protein 6.7 g/dL (6.4-8.2)
[2018-06-23 13:28] LABS: Albumin 2.4 g/dL (3.4-5.0); Anion Gap 12 meq/L (5-15); Aspartate Aminotransferase 67 U/L (15-37); Blood Urea Nitrogen 20 mg/dL (7-18); Calcium 8.3 mg/dL (8.5-10.1); Carbon Dioxide 20.8 meq/L (21.0-32.0); Chloride 95 meq/L (98-107); Glomerular Filtration Rate 50 mL/min (>89); Glucose,Random 98 mg/dL (74-106); Lipase 174 U/L (73-393); Potassium 3.6 meq/L (3.5-5.1); Sodium 128 meq/L (136-145)
[2018-06-23 13:43] LABS: Eosinophils 15 % (0-4); Lymphocytes 8 % (9-44); Monocytes 10 % (0-8); Platelet Estimate Normal (Normal); Platelet Morphology Normal (Normal)
--- NOTE | 2018-06-23 14:14 | CT ---
EXAM DATE: 06/23/2018 2:00 PM EDT AGE/SEX: 63 years / Male INDICATIONS: Abdominal pain. Diarrhea. Loss of appetite. CLINICAL DATA: This is the patient's initial encounter. Patient reports that signs and symptoms have been present for 1 day and indicates a pain score of 6/10. MEDICAL/SURGICAL HISTORY: Cardiovascular disease. Hypertension. Cardiomyopathy. None. RADIATION DOSE: 8.43 CTDI (mGy) COMPARISON: [facility], CTA THOR ABD AORTA W CONTRAST W 3D, 06/05/2018. . TECHNIQUE: Multiple contiguous axial images were obtained through the abdomen. Images were obtained using multiple row detector helical technique. Using automated exposure control and adjustment of the mA and/or kV according to patient size, radiation dose was kept as low as reasonably achievable to o btain optimal diagnostic quality images. DICOM format image data is available electronically for rev iew and comparison. FINDINGS: Lower Lungs: The visualized lower lungs are clear. Liver: The liver has a homogeneous density without space-occupying lesion. There is no dilation of th e biliary tree. Spleen: Homogeneous density without enlargement. Pancreas: Unremarkable without mass or calcification. Kidneys: Normal in size and shape. No evidence of mass or hydronephrosis. Adrenal Glands: Unremarkable. Aorta: The aorta and proximal iliac vessels are grossly unremarkable without aneurysmal dilation. Bowel/Mesentery: The bowel loops are grossly unremarkable. The cecum and sigmoid colon have a normal configuration. Abdominal Wall: Intact. Retroperitoneum: No evidence of adenopathy in the retrocrural, para-aortic, or deep pelvic regions. Bladder: Contours are smooth. Reproductive Organs: Central calcific deposits are noted in the prostate gland. Inguinal: The inguinal region is unremarkable without evidence of adenopathy. Bony Structures: Unremarkable. CONCLUSION: 1. No evidence of acute process. 2. No evidence of suspicious mass or lymphadenopathy. 3. Prostate calcification. Electronically signed by: Dewayne Tirado MD 06/23/2018 2:13 PM EDT
[2018-06-23] MEDS ORDERED: Acetaminophen 325 MG Tablet PO PRN (15:16)
--- NOTE | 2018-06-23 16:02 | P.HPIM ---
History of Present Illness Primary Care Physician: No Primary Care Physician Chief Complaint: Abdominal discomfort and nausea History of Present Illness: 63-year-old white male with a history of hypertension, coronary artery disease, hypothyroidism, recent hospitalization for C. difficile we presented to the emergency room with complaints of persistent nausea, poor appetite, intermittent lower abdominal cramps and pain despite taking his prescribed p.o. vancomycin medication. He states that he is on day #13 of 21 days of the prescription has not felt any better. He reports loose body large amounts of stools at times causing incontinence. He has not had any chills or fever. He denies any other recent sick contacts. He has not follow-up with the physician since discharge. At times he also feels dizzy and weak and therefore came back to the emergency room for evaluation. During the previous hospitalization, he claims that he wanted to leave AGAINST MEDICAL ADVICE and was actually discharged early on the p.o. vancomycin due to his insistence. - Diagnosis (1) KATIE (acute kidney injury) Review of Systems All other systems reviewed negative except as stated in HPI [facility] - History History Provided By: Patient - Medical / Surgical Hx Neg / Unobtainable Surgical History: No Previous Surgery - Medical History Medical History: Medical History (Last Updated 06/23/18 @ 15:57 by Pati Mcmanus MD) Ischemic cardiomyopathy Anxiety CAD (coronary artery disease) Cardiomyopathy Deafness in right ear Hypertension Hypothyroid Surgical history unknown - Family History Family History: Family History (Last Updated 06/23/18 @ 15:57 by Pati Mcmanus MD) Mother Hypothyroid Father Family history unknown - Tobacco History Second Hand Smoke Exposure: Yes Tobacco Use In Past 30 Days: Yes Smoking Status: Heavy tobacco smoker Tobacco Type: Cigarettes - Alcohol History How Often Do You Have a Drink Containing Alcohol: Never - Substance Use History Substance History: No History of Abuse - Travel History Recent Travel in the [place] Within the Last 8 Weeks: No Recent Travel Out of the Country Within the Last 8 Weeks: No - Immunization History Tetanus Immunization: Unsure Hx Influenza Vaccine This Season: Yes Medications and Allergies Active Medications: Active Medications Acetaminophen (Tylenol) 650 mg PO Q4H PRN PRN Reason: Temp > 100.4 Enoxaparin Sodium (Lovenox Inj) 40 mg SQ Q24H CHARLY Sodium Chloride (Ns Inj) 1,000 mls @ 0 mls/hr IV.SIG BOLUS CHARLY Last Infusion: 06/23/18 15:05 Dose: Infused Sodium Chloride (Ns Inj) 1,000 mls @ 100 mls/hr IV.CONT .Q10H CHARLY Ondansetron HCl (Zofran Inj) 4 mg IV.PUSH Q6H PRN PRN Reason: NAUSEA OR VOMITING Sodium Chloride (Ns Flush) 2 ml IV.FLUSH PRN PRN PRN Reason: FLUSH AFTER USING IV ACCESS Allergies Allergy/AdvReac Type Severity Reaction Status Date / Time pollen extracts Allergy Mild Congestion Verified 06/23/18 12:19 Home Medications Medication Instructions Recorded Confirmed Type aspirin 81 mg PO DAILY 06/05/18 06/23/18 History vancomycin 125 mg PO QID 06/23/18 06/23/18 History Exam Vital signs: Vital Signs 06/23/18 12:20 Temperature 97.8 F Pulse Rate 108 H Respiratory Rate 21 Blood Pressure 149/59 H Pulse Oximetry 98 Intake & Output 06/22/18 06/23/18 06/23/18 18:59 06:59 18:59 Intake Total 1999 Balance 1999 Intake: IV 1999 NS Inj 1,000 ML @ Wide Open IV. 1999 SIG BOLUS CHARLY Rx#:[id number] Narrative: GENERAL: Well-nourished well-developed white male in no acute distress SKIN: Warm and dry. HEAD: Atraumatic. Normocephalic. EYES: Pupils equal and round. No scleral icterus. No injection or drainage. ENT: No nasal bleeding or discharge. Mucous membranes pink and moist. NECK: Trachea midline. No JVD. CARDIOVASCULAR: Regular rate and rhythm. RESPIRATORY: No accessory muscle use. Clear to auscultation. Breath sounds equal bilaterally. GASTROINTESTINAL: Abdomen soft, non-tender, nondistended. Hepatic and splenic margins not palpable. Normoactive bowel sounds MUSCULOSKELETAL: Extremities without clubbing, cyanosis, or edema. No obvious deformities. NEUROLOGICAL: Awake and alert to person place time. No obvious cranial nerve deficits. Motor grossly within normal limits. Five out of 5 muscle strength in the arms and legs. Normal speech. PSYCHIATRIC: Appropriate mood and affect; insight and judgment normal. Results - Labs CBC & Chem 7: 06/23/18 12:46 06/23/18 12:46 Labs: Short CBC 06/23/18 Range/Units 12:46 WBC 8.0 (4.0-11.0) th/mm3 Hgb 11.3 L (13.0-17.0) gm/dL Hct 34.2 L (39.0-51.0) % Plt Count 385 (150-450) th/mm3 BMP 06/23/18 12:46 Sodium 128 L Potassium 3.6 Chloride 95 L Carbon Dioxide 20.8 L BUN 20 H Creatinine 1.43 H Calcium 8.3 L Liver Function 06/23/18 Range/Units 12:46 Total Bilirubin 0.5 (0.2-1.0) mg/dL AST 67 H (15-37) U/L ALT 102 H (12-78) U/L Alkaline Phosphatase 320 H (45-117) U/L Albumin 2.4 L (3.4-5.0) g/dL - Imaging Impressions Abdomen/Pelvis CT 06/23/18 13:21 CONCLUSION: 1. No evidence of acute process. 2. No evidence of suspicious mass or lymphadenopathy. 3. Prostate calcification. Caprini VTE Risk Assessment Caprini VTE Risk Assessment: Moderate/High Risk (score >= 2) Caprini Risk Assessment Model: Point Value = 1 Point Value = 2 Point Value = 3 Point Value = 5 Age 41-60 Minor surgery BMI > 25 kg/m2 Swollen legs Varicose veins or History of unexplained or recurrent spontaneous Oral contraceptives or hormone replacement Sepsis (< 1 month) Serious lung disease, including pneumonia (< 1 month) Abnormal pulmonary function Acute myocardial infarction Congestive heart failure (< 1 month) History of inflammatory bowel disease Medical patient at bed rest Age 61-74 Arthroscopic surgery Major open surgery (> 45 min) Laparoscopic surgery (> 45 min) Malignancy Confined to bed (> 72 hours) Immobilizing plaster cast Central venous access Age >= 75 History of VTE Family history of VTE Factor V Leiden Prothrombin [id number] Lupus anticoagulant Anticardiolipin antibodies Elevated serum homocysteine Heparin-induced thrombocytopenia Other congenital or acquired thrombophilia Stroke (< 1 month) Elective arthroplasty Hip, pelvis, or leg fracture Acute spinal cord injury (< 1 month) Prophylaxis Regimen: Total Risk Factor Score Risk Level Prophylaxis Regimen 0-1 Low Early ambulation 2 Moderate Order ONE of the following: *Sequential Compression Device (SCD) *Heparin 5000 units SQ BID 3-4 Higher Order ONE of the following medications: *Heparin 5000 units SQ TID *Enoxaparin/Lovenox 40 mg SQ daily (WT < 150 kg, CrCl > 30 mL/min) *Enoxaparin/Lovenox 30 mg SQ daily (WT < 150 kg, CrCl > 10-29 mL/min) *Enoxaparin/Lovenox 30 mg SQ BID (WT < 150 kg, CrCl > 30 mL/min) AND/OR *Sequential Compression Device (SCD) 5 or more Highest Order ONE of the following medications: *Heparin 5000 units SQ TID (Preferred with Epidurals) *Enoxaparin/Lovenox 40 mg SQ daily (WT < 150 kg, CrCl > 30 mL/min) *Enoxaparin/Lovenox 30 mg SQ daily (WT < 150 kg, CrCl > 10-29 mL/min) *Enoxaparin/Lovenox 30 mg SQ BID (WT < 150 kg, CrCl > 30 mL/min) AND *Sequential Compression Device (SCD) Assessment and Plan - Assessment (1) KATIE (acute kidney injury) Code(s): N17.9 - Acute kidney failure, unspecified Status: Acute - Plan 63-year-old white male with a history of ischemic cardiomyopathy, hypertension, hypothyroidism, recent hospitalization for C. difficile back in May and released on June 09 we presented back to the emergency room with 1. Persistent nausea and anorexia likely from recent C. difficilecontinue IV fluid hydration and anti-emetics, supportive care. Continue vancomycin for C. difficile and obtain GI consultation. Repeat C. difficile currently pending, CT abdomen pelvis showed no acute findings. 2. Hyponatremia due to hypovolemiacontinue with normal saline IV fluid hydration 3. Acute kidney injury superimposed on chronic kidney disease stage II due to dehydrationIV fluid hydration and monitor creatinine. Avoid nephrotoxins. Hold Lasix for now 4. Hypertension, chronic essentialrestart clonidine, hold off on hydralazine until further blood pressure trends are reviewed. Add low-dose lisinopril due to history of chronic systolic ischemic cardiomyopathy. 5. History of CADcontinue with aspirin 6. History of chronic systolic ischemic cardiomyopathyLasix will be on hold overnight, will start low-dose lisinopril, monitor closely with fluid hydration 7. DVT prophylaxisLovenox
[2018-06-23] MEDS: Enoxaparin Inj 40 MG/0.4 ML Syringe SQ SCH (16:06)
[2018-06-23] MEDS: Sod Chloride 0.9% Inj 1,000 ML IV.CONT SCH (16:06)
[2018-06-23 16:37] LABS: Bilirubin,Urine Negative (Negative); Clarity,Urine Clear (Clear); Color,Urine Yellow (Yellw/Straw); Glucose,Urine (UA) 50 mg/dL (Negative); Hyaline Casts,Urine 1 /lpf (0-3); Leukocyte Esterase,Urine Negative (Negative); Nitrite,Urine Negative (Negative); Specific Gravity,Urine 1.005 (1.002-1.035); Squamous Epithelial Cell,Urine <1 /hpf (0-5)
[2018-06-23] MEDS ORDERED: metroNIDAZOLE 500 MG Tablet PO SCH (22:00)
[2018-06-24] MEDS: Sod Chloride 0.9% Inj 1,000 ML IV.CONT SCH (04:12)
[2018-06-24] MEDS: Levothyroxine 100 MCG Tablet PO SCH (06:55)
[2018-06-24] MEDS: Levothyroxine 75 MCG Tablet PO SCH (06:55)
[2018-06-24 07:28] LABS: Baso # (Auto) 0.1 th/mm3 (0.0-0.2); Baso % (Auto) 1.7 % (0.0-2.0); Eos # (Auto) 1.3 th/mm3 (0.0-0.4); Eos % (Auto) 22.8 % (0.0-4.0); Hematocrit 31.2 % (39.0-51.0); Hemoglobin 10.3 gm/dL (13.0-17.0); Lymph # (Auto) 0.9 th/mm3 (1.0-4.8); Lymph % (Auto) 16.7 % (9.0-44.0); Mean Corpuscular HGB Conc 32.9 % (32.0-36.0); Mean Corpuscular Hemoglobin 29.8 pg (27.0-34.0); Mean Corpuscular Volume 90.7 fL (80.0-100.0); Mean Platelet Volume 8.9 fL (7.0-11.0); Mono # (Auto) 0.9 th/mm3 (0.0-0.9); Mono % (Auto) 15.2 % (0.0-8.0); Neut # (Auto) 2.5 th/mm3 (1.8-7.7); Neut % (Auto) 43.6 % (16.0-70.0); Platelet Count 391 th/mm3 (150-450); Red Blood Count 3.44 mil/mm3 (4.50-5.90); Red Cell Distribution Width 16.4 % (11.6-17.2); White Blood Count 5.6 th/mm3 (4.0-11.0)
[2018-06-24 07:50] LABS: Calcium 7.9 mg/dL (8.5-10.1); Carbon Dioxide 21.8 meq/L (21.0-32.0); Potassium 3.6 meq/L (3.5-5.1)
--- NOTE | 2018-06-24 08:49 | P.CONGI ---
History of Present Illness Consult date: 06/24/18 Consult reason: N/V/recent history of C. Diff Chief complaint: Hyponatremia, Acute Renal Insufficiency History of Present Illness: This is a 63 yo M with PMH significant for hypothyroidism, HTN, and CAD who presented to the ER yesterday with complaints of nausea, vomiting, and abdominal pain. Pt was recently admitted to the hospital and diagnosed with C. Diff, states he was discharged home with Vancomycin which he has been taking as prescribed for the 13 days he has been home. Denies any improvement in symptoms since discharge, states symptoms actually seem to have been getting worse. He reports nausea, states intermittent, has been unable to eat anything because everything comes back up. Denies hematemesis and coffee ground emesis. Denies dysphagia, odynophagia, and heartburn. Also reports abdominal pain, states it is located around his umbilicus, intermittent. Describes it as uncomfortable and gnawing. He is unable to identify and aggravating or alleviating factors. Also reports continued incontinence, states normally only a small amount of stool that comes out with flatus but that he has not been able to eat. States yesterday morning prior to arrival he had a large incontinent episode of diarrhea. Denies any hematochezia or melena. Reports chills, but denies any fevers. Denies previous EGD or colonoscopy. Denies ETOH. Smokes three quarters of a pack a day. Denies illicit drug use. Reports taking ASA or Ibuprofen once a week for joint pain. Of note, pts girlfriend he lives with recently had an episode of colitis, he is unsure of the etiology. <Oksana Moore - Last Filed: 06/24/18 10:11> Review of Systems Constitutional: Reports chills, Denies fever(s) Gastrointestinal: Reports abdominal pain, Reports incontinent of stools, Reports loose stools, Reports nausea, Reports vomiting, Denies black, tarry stools, Denies bright, red blood in stools, Denies pain with swallowing, Denies vomiting blood <Oksana Moore - Last Filed: 06/24/18 10:11> PMFSH - History History Provided By: Patient - Medical History Medical History: Medical History (Last Updated 06/23/18 @ 15:57 by Pati Mcmanus MD) Ischemic cardiomyopathy Anxiety CAD (coronary artery disease) Cardiomyopathy Deafness in right ear Hypertension Hypothyroid Surgical history unknown - Family History Family History: Family History (Last Updated 06/23/18 @ 15:57 by Pati Mcmanus MD) Mother Hypothyroid Father Family history unknown - Tobacco History Second Hand Smoke Exposure: No Tobacco Use In Past 30 Days: Yes Smoking Status: Never smoker Tobacco Type: Cigarettes - Alcohol History How Often Do You Have a Drink Containing Alcohol: 2 to 4 times a month - Substance Use History Substance History: No History of Abuse - Travel History Recent Travel in the [place] Within the Last 8 Weeks: No Recent Travel Out of the Country Within the Last 8 Weeks: No - Immunization History Tetanus Immunization: Unsure Hx Influenza Vaccine This Season: Yes <Oksana Moore - Last Filed: 06/24/18 10:11> - Medical History Medical History: Medical History (Last Updated 06/23/18 @ 15:57 by Pati Mcmanus MD) Ischemic cardiomyopathy Anxiety CAD (coronary artery disease) Cardiomyopathy Deafness in right ear Hypertension Hypothyroid Surgical history unknown - Family History Family History: Family History (Last Updated 06/23/18 @ 15:57 by Pati Mcmanus MD) Mother Hypothyroid Father Family history unknown <Jeniffer Gomez - Last Filed: 06/24/18 16:07> Medications and Allergies Active Medications: Active Medications Acetaminophen (Tylenol) 650 mg PO Q4H PRN PRN Reason: Temp > 100.4 Aspirin (Aspirin Chew) 81 mg PO DAILY [facility] Clonidine HCl (Catapres) 0.1 mg PO TID [facility] Last Admin: 06/23/18 20:25 Dose: 0.1 mg Enoxaparin Sodium (Lovenox Inj) 40 mg SQ Q24H [facility] Last Admin: 06/23/18 16:06 Dose: 40 mg Sodium Chloride (Ns Inj) 1,000 mls @ 0 mls/hr IV.SIG BOLUS [facility] Last Infusion: 06/23/18 15:05 Dose: Infused Sodium Chloride (Ns Inj) 1,000 mls @ 100 mls/hr IV.CONT .Q10H [facility] Last Admin: 06/24/18 04:12 Dose: 100 mls/hr Levothyroxine Sodium (Synthroid) 75 mcg PO DAILY@0600 [facility] Last Admin: 06/24/18 06:55 Dose: 75 mcg Levothyroxine Sodium (Synthroid) 100 mcg PO DAILY@0600 [facility] Last Admin: 06/24/18 06:55 Dose: 100 mcg Lisinopril (Prinivil) 2.5 mg PO DAILY [facility] Ondansetron HCl (Zofran Inj) 4 mg IV.PUSH Q6H PRN PRN Reason: NAUSEA OR VOMITING Sodium Chloride (Ns Flush) 2 ml IV.FLUSH PRN PRN PRN Reason: FLUSH AFTER USING IV ACCESS Vancomycin HCl (Vancomycin Po) 125 mg PO QID [facility] Last Admin: 06/23/18 22:50 Dose: 125 mg <Oksana Moore - Last Filed: 06/24/18 10:11> Active Medications: Active Medications Acetaminophen (Tylenol) 650 mg PO Q4H PRN PRN Reason: Temp > 100.4 Aspirin (Aspirin Chew) 81 mg PO DAILY [facility] Last Admin: 06/24/18 12:20 Dose: 81 mg Clonidine HCl (Catapres) 0.1 mg PO TID [facility] Last Admin: 06/24/18 12:20 Dose: 0.1 mg Enoxaparin Sodium (Lovenox Inj) 40 mg SQ Q24H [facility] Last Admin: 06/23/18 16:06 Dose: 40 mg Sodium Chloride (Ns Inj) 1,000 mls @ 0 mls/hr IV.SIG BOLUS [facility] Last Admin: 06/24/18 12:22 Dose: 100 mls/hr Levothyroxine Sodium (Synthroid) 75 mcg PO DAILY@0600 [facility] Last Admin: 06/24/18 06:55 Dose: 75 mcg Levothyroxine Sodium (Synthroid) 100 mcg PO DAILY@0600 [facility] Last Admin: 06/24/18 06:55 Dose: 100 mcg Lisinopril (Prinivil) 2.5 mg PO DAILY [facility] Last Admin: 06/24/18 09:20 Dose: 2.5 mg Ondansetron HCl (Zofran Inj) 4 mg IV.PUSH Q6H PRN PRN Reason: NAUSEA OR VOMITING Sodium Chloride (Ns Flush) 2 ml IV.FLUSH PRN PRN PRN Reason: FLUSH AFTER USING IV ACCESS Vancomycin HCl (Vancomycin Po) 125 mg PO QID [facility] Last Admin: 06/24/18 12:21 Dose: 125 mg <Jeniffer Gomez - Last Filed: 06/24/18 16:07> Allergies Allergy/AdvReac Type Severity Reaction Status Date / Time pollen extracts Allergy Mild Congestion Verified 06/23/18 12:19 Home Medications Medication Instructions Recorded Confirmed Type aspirin 81 mg PO DAILY 06/05/18 06/23/18 History vancomycin 125 mg PO QID 06/23/18 06/23/18 History Exam Vital signs: Vital Signs 06/23/18 12:20 06/23/18 16:10 06/23/18 20:00 Temperature 97.8 F 98.5 F Pulse Rate 108 H 94 H 97 H Respiratory Rate 21 18 17 Blood Pressure 149/59 H 135/71 149/68 H Pulse Oximetry 98 97 93 L 06/24/18 00:00 06/24/18 04:00 Temperature 98.8 F 98.3 F Pulse Rate 87 89 Respiratory Rate 17 17 Blood Pressure 141/68 H 133/64 Pulse Oximetry 93 L 94 L Intake & Output 06/23/18 06/24/18 06/24/18 18:59 06:59 18:59 Intake Total 1999 1000 / 1000 Balance 1999 1000 / 1000 Weight 99.79 kg Intake: IV 1999 1000 / 1000 NS Inj 1,000 ML @ 100 mls/hr IV 1000 / 1000 .CONT .Q10H [facility] Rx#:[id number] NS Inj 1,000 ML @ Wide Open IV. 1999 SIG BOLUS [facility] Rx#:[id number] Other: Date of Last Bowel Movement 06/23/18 06/23/18 Weight On Admission 99.79 kg - Constitutional no acute distress - Routine HEENT Exam Head: Present: normocephalic, atraumatic - Routine Respiratory Exam Absent: accessory muscle use - Routine Abdominal Exam Present: soft, normoactive bowel sounds, tenderness (periumbilical ). Absent: distended - Routine Skin Exam Present: dry, warm - Routine Neurological Exam Present: alert, oriented X3 <Oksana Moore - Last Filed: 06/24/18 10:11> Vital signs: Vital Signs 06/23/18 16:10 06/23/18 20:00 06/24/18 00:00 Temperature 98.5 F 98.8 F Pulse Rate 94 H 97 H 87 Respiratory Rate 18 17 17 Blood Pressure 135/71 149/68 H 141/68 H Pulse Oximetry 97 93 L 93 L 06/24/18 04:00 06/24/18 08:36 06/24/18 12:10 Temperature 98.3 F 98.0 F 98.1 F Pulse Rate 89 90 95 H Respiratory Rate 17 16 16 Blood Pressure 133/64 160/68 H 158/79 H Pulse Oximetry 94 L 93 L 96 06/24/18 15:54 Temperature 98.0 F Pulse Rate 90 Respiratory Rate 16 Blood Pressure 149/78 H Pulse Oximetry 97 Intake & Output 06/23/18 06/24/18 06/24/18 18:59 06:59 18:59 Intake Total 1999 1000 / 1000 Balance 1999 1000 / 1000 Weight 99.79 kg Intake: IV 1999 1000 / 1000 NS Inj 1,000 ML @ 100 mls/hr IV 999 / 1000 .CONT .Q10H [facility] Rx#:[id number] NS Inj 1,000 ML @ Wide Open IV. 1999 SIG BOLUS [facility] Rx#:[id number] Other: Date of Last Bowel Movement 06/23/18 06/23/18 06/23/18 Weight On Admission 99.79 kg <Jeniffer Gomez A - Last Filed: 06/24/18 16:07> Results - Labs CBC & Chem 7: 06/24/18 05:43 06/24/18 05:43 Labs: Laboratory Results - last 24 hr 06/23/18 06/23/18 06/23/18 12:46 12:46 16:10 WBC 8.0 RBC 3.75 L Hgb 11.3 L Hct 34.2 L MCV 91.0 MCH 30.2 MCHC 33.1 RDW 16.4 Plt Count 385 MPV 9.0 Prelim Diff (Auto) Slide review pending Neut % (Auto) 59.6 Lymph % (Auto) 11.1 Story % (Auto) 13.9 H Eos % (Auto) 14.3 H Baso % (Auto) 1.1 Neut # (Auto) 4.8 Lymph # (Auto) 0.9 L Story # (Auto) 1.1 H Eos # (Auto) 1.1 H Baso # (Auto) 0.1 WBC Differential Manual diff final Seg Neuts % (Manual) 56 Band Neuts % (Manual) 10 H Lymphocytes % (Manual) 8 L Monocytes % (Manual) 10 H Eosinophils % (Manual) 15 H Basophils % (Manual) 1 Abs Neuts (Manual) 5.3 Differential Comment . Platelet Estimate Normal Platelet Morphology Normal Sodium 128 L Potassium 3.6 Chloride 95 L Carbon Dioxide 20.8 L Anion Gap 12 BUN 20 H Creatinine 1.43 H Estimated GFR 50 L Random Glucose 98 Calcium 8.3 L Total Bilirubin 0.5 AST 67 H ALT 102 H Alkaline Phosphatase 320 H Total Protein 6.7 Albumin 2.4 L Lipase 174 Urine Color Yellow Urine Clarity Clear Urine pH 5.0 Ur Specific [place] 1.005 Urine Protein Negative Urine Glucose (UA) 50 Urine Ketones Trace H Urine Occult Blood Negative Urine Nitrate Negative Urine Bilirubin Negative Urine Urobilinogen Less than 2 Ur Leukocyte Esterase Negative Urine RBC Less than 1 Urine WBC 1 Ur Squamous Epith Cells <1 Hyaline Casts 1 Micro UA Comment Culture not ind Ur Microscopic Review Not Reportable Urine Culture Comments Culture not ind 06/24/18 06/24/18 05:43 05:43 WBC 5.6 RBC 3.44 L Hgb 10.3 L Hct 31.2 L MCV 90.7 MCH 29.8 MCHC 32.9 RDW 16.4 Plt Count 391 MPV 8.9 Prelim Diff (Auto) Neut % (Auto) 43.6 Lymph % (Auto) 16.7 Story % (Auto) 15.2 H Eos % (Auto) 22.8 H Baso % (Auto) 1.7 Neut # (Auto) 2.5 Lymph # (Auto) 0.9 L Story # (Auto) 0.9 Eos # (Auto) 1.3 H Baso # (Auto) 0.1 WBC Differential . Seg Neuts % (Manual) Band Neuts % (Manual) Lymphocytes % (Manual) Monocytes % (Manual) Eosinophils % (Manual) Basophils % (Manual) Abs Neuts (Manual) Differential Comment Auto diff final Platelet Estimate Platelet Morphology Sodium 136 Potassium 3.6 Chloride 101 Carbon Dioxide 21.8 Anion Gap 13 BUN 15 Creatinine 1.07 Estimated GFR 70 L Random Glucose 77 Calcium 7.9 L Total Bilirubin AST ALT Alkaline Phosphatase Total Protein Albumin Lipase Urine Color Urine Clarity Urine pH Ur Specific [place] Urine Protein Urine Glucose (UA) Urine Ketones Urine Occult Blood Urine Nitrate Urine Bilirubin Urine Urobilinogen Ur Leukocyte Esterase Urine RBC Urine WBC Ur Squamous Epith Cells Hyaline Casts Micro UA Comment Ur Microscopic Review Urine Culture Comments - Imaging Impressions Abdomen/Pelvis CT 06/23/18 13:21 CONCLUSION: 1. No evidence of acute process. 2. No evidence of suspicious mass or lymphadenopathy. 3. Prostate calcification. <Oksana Moore - Last Filed: 06/24/18 10:11> - Labs CBC & Chem 7: 06/24/18 05:43 06/24/18 05:43 Labs: Laboratory Results - last 24 hr 06/23/18 06/24/18 06/24/18 16:10 05:43 05:43 WBC 5.6 RBC 3.44 L Hgb 10.3 L Hct 31.2 L MCV 90.7 MCH 29.8 MCHC 32.9 RDW 16.4 Plt Count 391 MPV 8.9 Neut % (Auto) 43.6 Lymph % (Auto) 16.7 Story % (Auto) 15.2 H Eos % (Auto) 22.8 H Baso % (Auto) 1.7 Neut # (Auto) 2.5 Lymph # (Auto) 0.9 L Story # (Auto) 0.9 Eos # (Auto) 1.3 H Baso # (Auto) 0.1 WBC Differential . Differential Comment Auto diff final Sodium 136 Potassium 3.6 Chloride 101 Carbon Dioxide 21.8 Anion Gap 13 BUN 15 Creatinine 1.07 Estimated GFR 70 L Random Glucose 77 Calcium 7.9 L Iron TIBC % Saturation Ferritin Urine Color Yellow Urine Clarity Clear Urine pH 5.0 Ur Specific [place] 1.005 Urine Protein Negative Urine Glucose (UA) 50 Urine Ketones Trace H Urine Occult Blood Negative Urine Nitrate Negative Urine Bilirubin Negative Urine Urobilinogen Less than 2 Ur Leukocyte Esterase Negative Urine RBC Less than 1 Urine WBC 1 Ur Squamous Epith Cells <1 Hyaline Casts 1 Micro UA Comment Culture not ind Ur Microscopic Review Not Reportable Urine Culture Comments Culture not ind Hepatitis A IgM Ab Hep Bs Antigen Hep B Core IgM Ab Hep C IgG Ab 06/24/18 06/24/18 09:48 09:48 WBC RBC Hgb Hct MCV MCH MCHC RDW Plt Count MPV Neut % (Auto) Lymph % (Auto) Story % (Auto) Eos % (Auto) Baso % (Auto) Neut # (Auto) Lymph # (Auto) Story # (Auto) Eos # (Auto) Baso # (Auto) WBC Differential Differential Comment Sodium Potassium Chloride Carbon Dioxide Anion Gap BUN Creatinine Estimated GFR Random Glucose Calcium Iron 27 L TIBC 207 L % Saturation 13.0 L Ferritin 249 Urine Color Urine Clarity Urine pH Ur Specific [place] Urine Protein Urine Glucose (UA) Urine Ketones Urine Occult Blood Urine Nitrate Urine Bilirubin Urine Urobilinogen Ur Leukocyte Esterase Urine RBC Urine WBC Ur Squamous Epith Cells Hyaline Casts Micro UA Comment Ur Microscopic Review Urine Culture Comments Hepatitis A IgM Ab Nonreactive Hep Bs Antigen Nonreactive Hep B Core IgM Ab Nonreactive Hep C IgG Ab Nonreactive <Jeniffer Gomez - Last Filed: 06/24/18 16:07> Assessment and Plan - Plan Assessment: - Intractable nausea and vomiting- nausea, states intermittent, has been unable to eat anything because everything comes back up. Denies hematemesis and coffee ground emesis. Denies dysphagia, odynophagia, and heartburn. Also reports abdominal pain, states it is located around his umbilicus, intermittent. Describes it as uncomfortable and gnawing. He is unable to identify and aggravating or alleviating factors. Also reports continued fecal incontinence, states normally only a small amount of stool that comes out with flatus but that he has not been able to eat. States yesterday morning prior to arrival he had a large incontinent episode of diarrhea. Denies any hematochezia or melena. Reports chills, but denies any fevers. Recent hospitalization with C. Diff, took 13 days of Vancomycin as prescribed , was still taking the day of arrival. States that this is his first occurrence. Of note, pts girlfriend he lives with recently had an episode of colitis, he is unsure of the etiology. Denies previous EGD or colonoscopy. Denies ETOH. Smokes three quarters of a pack a day. Denies illicit drug use. Reports taking ASA or Ibuprofen once a week for joint pain. CT abdomen and pelvis WO IV contrast (06/23) No evidence of acute process. No evidence of suspicious mass or lymphadenopathy. Prostate calcification. - Elevated LFTs - Elevated during previous admission. (06/23) AST-67 ALT-102 Alk phos-320 T bili-0.5 Lipase WNL Plan: Clear liquids today ? EGD tomorrow pending stool samples and course High risk- EF 30-35% in April Obtain consent NPO after MN Antiemetics PRN Stool samples Continue PO Vancomycin Liver work up Further recommendations to follow Pt has been seen and examined by myself and Dr. Gomez and this note is written on his behalf <Oksana Moore - Last Filed: 06/24/18 10:11> - Attending Attestation Seen and examined with Oksana, plan as above. Will schedule EGD in AM. Further recommendations to follow. Thank you for the consult. <Jeniffer Gomez - Last Filed: 06/24/18 16:07>
[2018-06-24] MEDS: Lisinopril 5 MG Tablet PO SCH (09:20)
[2018-06-24 12:03] LABS: Hepatitits B Surface Antigen Nonreactive (Nonreactive)
[2018-06-24] MEDS: Sod Chloride 0.9% Inj 1,000 ML IV.SIG SCH (12:22)
[2018-06-24 12:32] LABS: Hepatitis A IgM Antibody Nonreactive (Nonreactive)
--- NOTE | 2018-06-24 16:49 | P.PN ---
Subjective Interval history: Patient is seen lying in bed. He is very upset that he continues to have abdominal pain and discomfort. He tells me that he is quite depressed over this as he has been bedridden for about a month and a half. He is tolerating clear liquids today without any vomiting. He does have some nausea. Diarrhea has significantly decreased. No chest pain or shortness of breath. No fever or chills. Physical Exam Vital signs: Vital Signs 06/23/18 20:00 06/24/18 00:00 06/24/18 04:00 Temperature 98.5 F 98.8 F 98.3 F Pulse Rate 97 H 87 89 Respiratory Rate 17 17 17 Blood Pressure 149/68 H 141/68 H 133/64 Pulse Oximetry 93 L 93 L 94 L 06/24/18 08:36 06/24/18 12:10 06/24/18 15:54 Temperature 98.0 F 98.1 F 98.0 F Pulse Rate 90 95 H 90 Respiratory Rate 16 16 16 Blood Pressure 160/68 H 158/79 H 149/78 H Pulse Oximetry 93 L 96 97 Intake & Output 06/23/18 06/24/18 06/24/18 18:59 06:59 18:59 Intake Total 1999 1000 / 1000 Balance 1999 1000 / 1000 Weight 99.79 kg Intake: IV 1999 1000 / 1000 NS Inj 1,000 ML @ 100 mls/hr IV 1000 / 1000 .CONT .Q10H [facility] Rx#:[id number] NS Inj 1,000 ML @ Wide Open IV. 1999 SIG BOLUS [facility] Rx#:[id number] Other: Date of Last Bowel Movement 06/23/18 06/23/18 06/23/18 Weight On Admission 99.79 kg Narrative: GENERAL: Well-nourished, well-developed adult male in no obvious distress. SKIN: Warm and dry. HEAD: Atraumatic. Normocephalic. CARDIOVASCULAR: Regular rate and rhythm. RESPIRATORY: No accessory muscle use. Clear to auscultation. Breath sounds equal bilaterally. GASTROINTESTINAL: Abdomen soft, diffusely tender, distended. Positive bowel sounds. MUSCULOSKELETAL: Extremities without clubbing, cyanosis, or edema. No obvious deformities. NEUROLOGICAL: Awake and alert. No obvious cranial nerve deficits. Motor grossly within normal limits. Normal speech. PSYCHIATRIC: Depressed Results - Labs CBC & Chem 7: 06/24/18 05:43 06/24/18 05:43 Laboratory Results - last 24 hr 06/23/18 06/24/18 06/24/18 16:10 05:43 05:43 WBC 5.6 RBC 3.44 L Hgb 10.3 L Hct 31.2 L MCV 90.7 MCH 29.8 MCHC 32.9 RDW 16.4 Plt Count 391 MPV 8.9 Neut % (Auto) 43.6 Lymph % (Auto) 16.7 [place] % (Auto) 15.2 H Eos % (Auto) 22.8 H Baso % (Auto) 1.7 Neut # (Auto) 2.5 Lymph # (Auto) 0.9 L [place] # (Auto) 0.9 Eos # (Auto) 1.3 H Baso # (Auto) 0.1 WBC Differential . Differential Comment Auto diff final Sodium 136 Potassium 3.6 Chloride 101 Carbon Dioxide 21.8 Anion Gap 13 BUN 15 Creatinine 1.07 Estimated GFR 70 L Random Glucose 77 Calcium 7.9 L Iron TIBC % Saturation Ferritin Urine Color Yellow Urine Clarity Clear Urine pH 5.0 Ur Specific [place] 1.005 Urine Protein Negative Urine Glucose (UA) 50 Urine Ketones Trace H Urine Occult Blood Negative Urine Nitrate Negative Urine Bilirubin Negative Urine Urobilinogen Less than 2 Ur Leukocyte Esterase Negative Urine RBC Less than 1 Urine WBC 1 Ur Squamous Epith Cells <1 Hyaline Casts 1 Micro UA Comment Culture not ind Ur Microscopic Review Not Reportable Urine Culture Comments Culture not ind Stl C.difficile Tox PCR St C. diff Tox Epid 027 Hepatitis A IgM Ab Hep Bs Antigen Hep B Core IgM Ab Hep C IgG Ab 06/24/18 06/24/18 06/24/18 09:48 09:48 14:05 WBC RBC Hgb Hct MCV MCH MCHC RDW Plt Count MPV Neut % (Auto) Lymph % (Auto) [place] % (Auto) Eos % (Auto) Baso % (Auto) Neut # (Auto) Lymph # (Auto) [place] # (Auto) Eos # (Auto) Baso # (Auto) WBC Differential Differential Comment Sodium Potassium Chloride Carbon Dioxide Anion Gap BUN Creatinine Estimated GFR Random Glucose Calcium Iron 27 L TIBC 207 L % Saturation 13.0 L Ferritin 249 Urine Color Urine Clarity Urine pH Ur Specific [place] Urine Protein Urine Glucose (UA) Urine Ketones Urine Occult Blood Urine Nitrate Urine Bilirubin Urine Urobilinogen Ur Leukocyte Esterase Urine RBC Urine WBC Ur Squamous Epith Cells Hyaline Casts Micro UA Comment Ur Microscopic Review Urine Culture Comments Stl C.difficile Tox PCR Negative St C. diff Tox Epid 027 Negative Hepatitis A IgM Ab Nonreactive Hep Bs Antigen Nonreactive Hep B Core IgM Ab Nonreactive Hep C IgG Ab Nonreactive Assessment and Plan - Assessment (1) KATIE (acute kidney injury) Code(s): N17.9 - Acute kidney failure, unspecified Status: Acute (2) Gastroenteritis Code(s): K52.9 - Noninfective gastroenteritis and colitis, unspecified Status : Acute (3) Abdominal pain Code(s): R10.9 - Unspecified abdominal pain Status: Acute (4) C. difficile diarrhea Code(s): A04.72 - Enterocolitis due to Clostridium difficile, not specified as recurrent Status: Acute - Plan 63-year-old white male with a history of ischemic cardiomyopathy, hypertension, hypothyroidism, recent hospitalization for C. difficile back in May and released on June 09 we presented back to the emergency room with continued abdominal pain with nausea vomiting. Persistent nausea and anorexia likely from recent C. difficile continue IV fluid hydration and anti-emetics, supportive care. -Continue vancomycin for C. difficile - GI consultation. -Repeat C. difficile currently pending - CT abdomen pelvis showed no acute findings. -Planned EGD 06/25. Elevated liver enzymes -Being evaluated by GI; labs pending -No liver abnormality seen on CT Hyponatremia due to hypovolemia continue with normal saline IV fluid hydration Acute kidney injury superimposed on chronic kidney disease stage II -due to dehydrationIV fluid hydration and monitor creatinine. Avoid nephrotoxins. - Hold Lasix for now -creatinine improved as of 06/24 Hypertension, chronic essential restart clonidine -hold off on hydralazine until further blood pressure trends are reviewed History of CAD continue with aspirin History of chronic systolic ischemic cardiomyopathy Lasix will be on hold overnight -start low-dose lisinopril -monitor closely with fluid hydration DVT prophylaxisLovenox Discussed with: Patient, nurse, Dr. Shepherd
[2018-06-24] MEDS: Enoxaparin Inj 40 MG/0.4 ML Syringe SQ SCH (17:16)
[2018-06-25] MEDS ORDERED: hydrALAZINE 50 MG Tablet PO ONE (02:52)
[2018-06-25] MEDS: Levothyroxine 100 MCG Tablet PO SCH (05:26)
[2018-06-25] MEDS: Levothyroxine 75 MCG Tablet PO SCH (05:26)
[2018-06-25 07:38] LABS: INR 1.2 Ratio
[2018-06-25] MEDS: hydrALAZINE 50 MG Tablet PO SCH ×3 (10:00→17:49)
[2018-06-25] MEDS: Lisinopril 5 MG Tablet PO SCH (10:00)
[2018-06-25] MEDS ORDERED: Chlorhexidine Gluconate 2% 1 Pack (2 Cloths) TOPICAL ONE (14:30)
[2018-06-25] MEDS ORDERED: Metoprolol Tartrate 25 MG Tablet PO ONE (14:30)
[2018-06-25] MEDS ORDERED: Sodium Chlor 0.9% Inj 500 ML IV.CONT ONE (14:30)
--- NOTE | 2018-06-25 14:55 | GIPROC ---
[facility] [address] [facility]. [facility], [address] EGD PROCEDURE REPORT EXAM DATE: 06/25/2018 PATIENT NAME: Lew Baptiste MR #: [id number] BIRTHDATE: 1955 ATTENDING: Jeniffer Gomez MD ORDER #: [id number] [employer]IOR MANAGER: Jayde Pond and Jessica Perea STATUS: inpatient INDICATIONS: The patient is a 63 yr old male here for an EGD due to vomiting, nausea, and abdominal pain PROCEDURE PERFORMED: EGD w/ biopsy MEDICATIONS: None and Per Anesthesia. TOPICAL ANESTHETIC: none CONSENT: The patient understands the risks and benefits of the procedure and understands that these risks include, but are not limited to: sedation, allergic reaction, infection, perforation and/or bleeding. Alternative means of evaluation and treatment include, among others: physical exam, x-rays, and/or surgical intervention. The patient elects to proceed with this endoscopic procedure. medical equipment was checked for proper function. Hand hygiene and appropriate measures for infection prevention was taken. After the risks, benefits and alternatives of the procedure were thoroughly explained, Informed consent was verified, confirmed and timeout was successfully executed by the treatment team. The patient was anesthetized with topical anesthesia and the Pentax [id number] endoscope was introduced through the mouth and advanced to the second portion of the duodenum. Retroflexion was performed and was normal The gastroscope was then slowly withdrawn and removed. ESOPHAGUS: The mucosa of the esophagus appeared normal. STOMACH: There was acute moderate and erosive gastritis at the angularis, in the gastric antrum, and gastric body. A large non-bleeding, round, deep and clean-based ulcer with heaped up edges was found in the gastric antrum. Biopsies were taken at edge of the ulcer and at the center of the ulcer. DUODENUM: Moderate duodenal inflammation was found in the bulb and second portion of the duodenum. ADVERSE EVENTS: There were no complications. IMPRESSIONS: 1. The esophagus appeared normal 2. There was acute gastritis at the angularis, in the gastric antrum, and gastric body 3. Large ulcer was found in the gastric antrum; biopsies were taken 4. Duodenal inflammation was found in the bulb and second portion of the duodenum 5. Retroflexion was performed and was normal RECOMMENDATIONS: 1. Await biopsy results. Biopsy results will not be ready for 7-10 days. If you don't hear from us in two weeks, call our office for biopsy results. 2. Avoid NSAIDS 3. Continue PPI 4. Begin feeding today PATIENT CONDITION: stable DISPOSITION: Observation REPEAT EXAM: NONE Jeniffer Gomez MD eSigned: Jeniffer Gomez MD 06/25/2018 2:55 PM cc: PATIENT NAME: Lew Baptiste MR#: [id number]
[2018-06-25 15:17] LABS: Alpha 1 Antitrypsin 234 mg/dL (100 - 190); Smooth Muscle Total Auto Abs Negative (Negative)
--- NOTE | 2018-06-25 17:04 | P.PN ---
Subjective Interval history: Patient is seen lying in bed. He is anxious to get his EGD done. Continues to have abdominal discomfort. No chest pain or shortness of breath. No vomiting, nausea is controlled. Does report being very anxious which he thinks might be affecting his blood pressure. Physical Exam Vital signs: Vital Signs 06/24/18 20:00 06/25/18 00:00 06/25/18 04:00 Temperature 98.2 F 98.0 F 98.2 F Pulse Rate 86 94 H 100 H Respiratory Rate 16 16 16 Blood Pressure 183/81 H 200/91 H 202/86 H Pulse Oximetry 97 98 96 06/25/18 08:34 06/25/18 12:10 06/25/18 12:25 Temperature 97.7 F 98.1 F Pulse Rate 104 H 110 H Respiratory Rate 18 20 Blood Pressure 175/83 H 173/81 H 163/80 H Pulse Oximetry 93 L 06/25/18 15:00 06/25/18 15:02 06/25/18 15:42 Temperature 97.1 F L 97.9 F 98.3 F Pulse Rate 107 H 105 H 109 H Respiratory Rate 18 16 20 Blood Pressure 121/60 121/60 170/78 H Pulse Oximetry 95 92 L Intake & Output 06/24/18 06/25/18 06/25/18 18:59 06:59 18:59 Intake Total 1999 200 / 200 Balance 1999 200 / 200 Intake: IV 1999 NS Inj 1,000 ML @ Wide Open IV. 1000 / 1000 SIG BOLUS CHARLY Rx#:[id number] Anesthesia Amount 200 / 200 Other: Date of Last Bowel Movement 06/23/18 Narrative: GENERAL: Well-nourished, well-developed adult male in no obvious distress. SKIN: Warm and dry. HEAD: Atraumatic. Normocephalic. CARDIOVASCULAR: Regular rate and rhythm. RESPIRATORY: No accessory muscle use. Clear to auscultation. Breath sounds equal bilaterally. GASTROINTESTINAL: Abdomen soft, diffusely tender, distended. Positive bowel sounds. MUSCULOSKELETAL: Extremities without clubbing, cyanosis, or edema. No obvious deformities. NEUROLOGICAL: Awake and alert. No obvious cranial nerve deficits. Motor grossly within normal limits. Normal speech. PSYCHIATRIC: Depressed Results - Labs CBC & Chem 7: 06/24/18 05:43 06/24/18 05:43 Laboratory Results - last 24 hr 06/24/18 06/25/18 09:48 06:35 PT 12.0 H INR 1.2 [id number] 234 H Anti-Smooth Muscle Ab Negative Assessment and Plan - Assessment (1) KATIE (acute kidney injury) Code(s): N17.9 - Acute kidney failure, unspecified Status: Acute (2) Gastroenteritis Code(s): K52.9 - Noninfective gastroenteritis and colitis, unspecified Status : Acute (3) Abdominal pain Code(s): R10.9 - Unspecified abdominal pain Status: Acute (4) C. difficile diarrhea Code(s): A04.72 - Enterocolitis due to Clostridium difficile, not specified as recurrent Status: Acute - Plan 63-year-old white male with a history of ischemic cardiomyopathy, hypertension, hypothyroidism, recent hospitalization for C. difficile back in May and released on June 09 we presented back to the emergency room with continued abdominal pain with nausea vomiting. Persistent nausea and anorexia likely from recent C. difficile continue IV fluid hydration and anti-emetics, supportive care. -Continue vancomycin for C. difficile; will defer to GI for stopping based on negative results of C. difficile screen. - GI consultation. -Repeat C. difficile negative - CT abdomen pelvis showed no acute findings. -Planned EGD today. Elevated liver enzymes -Being evaluated by GI; labs pending -No liver abnormality seen on CT Hyponatremia due to hypovolemia continue with normal saline IV fluid hydration Acute kidney injury superimposed on chronic kidney disease stage II -due to dehydrationIV fluid hydration and monitor creatinine. Avoid nephrotoxins. - Hold Lasix for now -creatinine improved as of 06/24 Hypertension, chronic essential -Stop clonidine 06/25 Restart home hydralazine 06/25 History of CAD continue with aspirin History of chronic systolic ischemic cardiomyopathy Lasix will be on hold overnight -start low-dose lisinopril -monitor closely with fluid hydration DVT prophylaxisLovenox Discussed with: Patient, nurse, Dr. Shepherd
[2018-06-25] MEDS: Enoxaparin Inj 40 MG/0.4 ML Syringe SQ SCH (17:49)
[2018-06-25] MEDS ORDERED: Sucralfate Liq 1 GM/10 ML UDC PO ONE (20:15)
[2018-06-25] MEDS ORDERED: Melatonin 5 MG Tablet PO ONE (20:15)
[2018-06-26] MEDS: Levothyroxine 75 MCG Tablet PO SCH (05:36)
[2018-06-26] MEDS: Levothyroxine 100 MCG Tablet PO SCH (05:36)
--- NOTE | 2018-06-26 09:08 | P.PNGI ---
Subjective Interval history: Thing in the bed awake responsive and states that he does have improvement today. Mild nausea but no obvious vomiting occasional dry heaves. Patient is tolerating liquids and will advance diet to full liquids this a.m. encourage patient to become more active and sit on the side of the bed he does note improvement in his gastric discomfort over the past 24 hours with Zofran and PPI. Current hemoglobin 10.3 <Karolina Almazan - Last Filed: 06/26/18 09:01> Physical Exam Vital signs: Vital Signs 06/25/18 12:10 06/25/18 12:25 06/25/18 15:00 Temperature 98.1 F 97.1 F L Pulse Rate 110 H 107 H Respiratory Rate 20 18 Blood Pressure 173/81 H 163/80 H 121/60 Pulse Oximetry 06/25/18 15:02 06/25/18 15:42 06/25/18 19:46 Temperature 97.9 F 98.3 F 100.0 F H Pulse Rate 105 H 109 H 109 H Respiratory Rate 16 20 18 Blood Pressure 121/60 170/78 H 182/84 H Pulse Oximetry 95 92 L 94 L 06/26/18 00:00 06/26/18 03:46 06/26/18 08:00 Temperature 97.9 F 98.4 F 97.9 F Pulse Rate 92 H 101 H 95 H Respiratory Rate 16 16 20 Blood Pressure 135/72 180/80 H 164/79 H Pulse Oximetry 95 95 94 L Intake & Output 06/25/18 06/26/18 06/26/18 18:59 06:59 18:59 Intake Total 200 / 200 Output Total 150 / 150 Balance 200 / 200 -150 / -150 Intake: Anesthesia Amount 200 / 200 Output: Urine 150 / 150 Other: Date of Last Bowel Movement 06/25/18 - Constitutional no acute distress, obese - Routine HEENT Exam Head: Present: normocephalic ENT: Present: mucous membranes moist - Routine Neck Exam Present: supple - Routine Respiratory Exam Present: accessory muscle use - Routine Cardiovascular Exam Present: S1, S2 - Routine Abdominal Exam Present: soft (Round, active bowel sounds no obvious distention) - Routine Skin Exam Present: intact - Routine Neurological Exam Present: alert <Karolina Almazan - Last Filed: 06/26/18 09:01> Vital signs: Vital Signs 06/25/18 15:00 09/13/18 15:02 06/25/18 15:42 Temperature 97.1 F L 97.9 F 98.3 F Pulse Rate 107 H 105 H 109 H Respiratory Rate 18 16 20 Blood Pressure 121/60 121/60 170/78 H Pulse Oximetry 95 92 L 06/25/18 19:46 06/26/18 00:00 06/26/18 03:46 Temperature 100.0 F H 97.9 F 98.4 F Pulse Rate 109 H 92 H 101 H Respiratory Rate 18 16 16 Blood Pressure 182/84 H 135/72 180/80 H Pulse Oximetry 94 L 95 95 06/26/18 08:00 Temperature 97.9 F Pulse Rate 95 H Respiratory Rate 20 Blood Pressure 164/79 H Pulse Oximetry 94 L Intake & Output 06/25/18 06/26/18 06/26/18 18:59 06:59 18:59 Intake Total 200 / 200 Output Total 150 / 150 Balance 200 / 200 -150 / -150 Intake: Anesthesia Amount 200 / 200 Output: Urine 150 / 150 Other: Date of Last Bowel Movement 06/25/18 <Jeniffer Gomez - Last Filed: 06/26/18 13:32> Results - Labs CBC & Chem 7: 06/24/18 05:43 06/24/18 05:43 Laboratory Results - last 24 hr 06/24/18 09:48 [id number] 234 H Anti-Smooth Muscle Ab Negative <Karolina Almazan - Last Filed: 06/26/18 09:01> - Labs CBC & Chem 7: 06/24/18 05:43 06/24/18 05:43 Laboratory Results - last 24 hr 06/24/18 06/24/18 09:48 09:48 [id number] 234 H COLLEEN Screen Neg Anti-Smooth Muscle Ab Negative <Jeniffer Gomez - Last Filed: 06/26/18 13:32> Assessment and Plan - Plan Assessment: - Intractable nausea and vomiting- nausea, states intermittent, has been unable to eat anything because everything comes back up. Denies hematemesis and coffee ground emesis. Denies dysphagia, odynophagia, and heartburn. Also reports abdominal pain, states it is located around his umbilicus, intermittent. Describes it as uncomfortable and gnawing. He is unable to identify and aggravating or alleviating factors. Also reports continued fecal incontinence, states normally only a small amount of stool that comes out with flatus but that he has not been able to eat. States yesterday morning prior to arrival he had a large incontinent episode of diarrhea. Denies any hematochezia or melena. Reports chills, but denies any fevers. Recent hospitalization with C. Diff, took 13 days of Vancomycin as prescribed , was still taking the day of arrival. States that this is his first occurrence. Of note, pts girlfriend he lives with recently had an episode of colitis, he is unsure of the etiology. Denies previous EGD or colonoscopy. Denies ETOH. Smokes three quarters of a pack a day. Denies illicit drug use. Reports taking ASA or Ibuprofen once a week for joint pain. CT abdomen and pelvis WO IV contrast (06/23) No evidence of acute process. No evidence of suspicious mass or lymphadenopathy. Prostate calcification. - Elevated LFTs - Elevated during previous admission. (06/23) AST-67 ALT-102 Alk phos-320 T bili-0.5 Lipase WNL 06/26/2018 patient is status post EGD performed on 913 showing some gastritis and some duodenal inflammation. Patient's main symptoms are nausea and some dry heaves but does state that he is much improved 50% over the past 24 hours. Patient states decreased appetite but is tolerating clear liquids will increase diet to full liquids and check for toleration. Patient states Zofran is effective and need to continue PPI. Current hemoglobin 10.5 no obvious bleeding. Patient is stable from a GI standpoint and follow-up in the office on discharge. We can also review liver workup and any further outpatient treatment needs including outpatient colonoscopy when warranted. Liver workup is pending, alpha-1 antitrypsin 234, stool studies are pending but C. difficile and toxoid is negative. Plan: Increase to full liquids today and tolerance of diet Encourage activity and sitting up. Mobility PPI Zofran as needed Monitor hemoglobin and diarrhea, any obvious bleeding Patient was seen per myself and Dr. Gomez, note was written on his behalf <Karolina Almazan - Last Filed: 06/26/18 09:01> - Attending Attestation Seen and examined, plan as above, <Jeniffer Gomez - Last Filed: 06/26/18 13:32>
[2018-06-26] MEDS: Lisinopril 5 MG Tablet PO SCH (09:58)
[2018-06-26] MEDS: hydrALAZINE 50 MG Tablet PO SCH ×3 (09:59→17:55)
[2018-06-26 12:48] VITALS: RESP 16
[2018-06-26] MEDS ORDERED: Phenylephrine/NS 1000 MCG/10ML Syringe IV.PUSH ONE (14:40)
[2018-06-26] MEDS ORDERED: Lidocaine PF 1% Inj 5 ML Syringe INFILTRATN ONE (14:40)
--- NOTE | 2018-06-26 15:06 | P.PN ---
Subjective Interval history: Patient is seen lying in bed. He tells me he has tolerated soup and pudding for lunch with no vomiting. He remains very anxious about the possibility that he will vomit. No chest pain or shortness of breath. No diarrhea. Physical Exam Vital signs: Vital Signs 06/25/18 15:42 06/25/18 19:46 06/26/18 00:00 Temperature 98.3 F 100.0 F H 97.9 F Pulse Rate 109 H 109 H 92 H Respiratory Rate 20 18 16 Blood Pressure 170/78 H 182/84 H 135/72 Pulse Oximetry 92 L 94 L 95 06/26/18 03:46 06/26/18 08:00 06/26/18 12:00 Temperature 98.4 F 97.9 F 98.3 F Pulse Rate 101 H 95 H 71 Respiratory Rate 16 20 16 Blood Pressure 180/80 H 164/79 H 138/66 Pulse Oximetry 95 94 L 91 L Intake & Output 06/25/18 06/26/18 06/26/18 18:59 06:59 18:59 Intake Total 200 / 200 Output Total 150 / 150 Balance 200 / 200 -150 / -150 Intake: Anesthesia Amount 200 / 200 Output: Urine 150 / 150 Other: Date of Last Bowel Movement 06/25/18 Narrative: GENERAL: Well-nourished, well-developed adult male in no obvious distress. SKIN: Warm and dry. HEAD: Atraumatic. Normocephalic. CARDIOVASCULAR: Regular rate and rhythm. RESPIRATORY: No accessory muscle use. Clear to auscultation. Breath sounds equal bilaterally. GASTROINTESTINAL: Abdomen soft, non- tender, non-distended. Positive bowel sounds. MUSCULOSKELETAL: Extremities without clubbing, cyanosis, or edema. No obvious deformities. NEUROLOGICAL: Awake and alert. No obvious cranial nerve deficits. Motor grossly within normal limits. Normal speech. PSYCHIATRIC: Depressed Results - Labs CBC & Chem 7: 06/24/18 05:43 06/24/18 05:43 Laboratory Results - last 24 hr 06/24/18 06/24/18 09:48 09:48 [id number] 234 H COLLEEN Screen Neg Anti-Smooth Muscle Ab Negative Assessment and Plan - Assessment (1) KATIE (acute kidney injury) Code(s): N17.9 - Acute kidney failure, unspecified Status: Acute (2) Gastroenteritis Code(s): K52.9 - Noninfective gastroenteritis and colitis, unspecified Status : Acute (3) Abdominal pain Code(s): R10.9 - Unspecified abdominal pain Status: Acute (4) C. difficile diarrhea Code(s): A04.72 - Enterocolitis due to Clostridium difficile, not specified as recurrent Status: Acute - Plan 63-year-old white male with a history of ischemic cardiomyopathy, hypertension, hypothyroidism, recent hospitalization for C. difficile back in May and released on June 09 we presented back to the emergency room with continued abdominal pain with nausea vomiting. Persistent nausea and anorexia likely from recent C. difficile continue IV fluid hydration and anti-emetics, supportive care. -Continue vancomycin for C. difficile; will defer to GI for stopping based on negative results of C. difficile screen. - GI consultation. -Repeat C. difficile negative. Stop Vanco - CT abdomen pelvis showed no acute findings. -EGD showed deep nonbleeding ulcer. Biopsies pending. GI has cleared for discharge and follow-up as outpatient Elevated liver enzymes -Being evaluated by GI; labs pending -No liver abnormality seen on CT Hyponatremia due to hypovolemia continue with normal saline IV fluid hydration Acute kidney injury superimposed on chronic kidney disease stage II -due to dehydrationIV fluid hydration and monitor creatinine. Avoid nephrotoxins. - Hold Lasix for now -creatinine improved as of 06/24 Hypertension, chronic essential -Stop clonidine 06/25 Restart home hydralazine 06/25 History of CAD continue with aspirin History of chronic systolic ischemic cardiomyopathy Lasix will be on hold overnight -start low-dose lisinopril -monitor closely with fluid hydration DVT prophylaxisLovenox Discussed with: Patient, nurse, Dr. Shepherd
--- NOTE | 2018-06-26 15:23 | P.DS ---
Date of admission: 06/23/18 15:19 Primary care physician: Adenike Primary Care Physician Attending physician on discharge: Alexis Shepherd Anticipated date of discharge: 06/26/18 Brief History from admission: 63-year-old white male with a history of hypertension, coronary artery disease, hypothyroidism, recent hospitalization for C. difficile we presented to the emergency room with complaints of persistent nausea, poor appetite, intermittent lower abdominal cramps and pain despite taking his prescribed p.o. vancomycin medication. He states that he is on day #13 of 21 days of the prescription has not felt any better. He reports loose body large amounts of stools at times causing incontinence. He has not had any chills or fever. He denies any other recent sick contacts. He has not follow-up with the physician since discharge. At times he also feels dizzy and weak and therefore came back to the emergency room for evaluation. During the previous hospitalization, he claims that he wanted to leave AGAINST MEDICAL ADVICE and was actually discharged early on the p.o. vancomycin due to his insistence. DS: Diagnosis - Discharge Diagnosis (1) KATIE (acute kidney injury) Status: Resolved (2) Gastroenteritis Status: Chronic (3) Abdominal pain Status: Resolved (4) C. difficile diarrhea Status: Resolved (5) Ulcer, stomach peptic Status: Acute DS: Medications - Discharge Medications Prescriptions: ondansetron 4 mg PO Q4H PRN #30 tab PRN Reason: Nausea Or Vomiting pantoprazole 40 mg PO DAILY #30 tab DS: Summary Hospital Course: 63-year-old white male with a history of ischemic cardiomyopathy, hypertension, hypothyroidism, recent hospitalization for C. difficile back in May and released on June 09 we presented back to the emergency room with continued abdominal pain with nausea vomiting. Repeat testing for C. difficile was negative. Patient was evaluated by GI. CT abdomen pelvis showed no acute findings. EGD showed deep nonbleeding ulcer. Biopsies are pending. GI has cleared for discharge and follow-up outpatient. Patient was also noted to have elevated liver enzymes with no liver abnormality being seen on CT. Will also follow-up outpatient with GI for this. Initially admitted with acute kidney injury superimposed on chronic kidney disease stage II. KATIE resolved with IV rehydration. - Time Spent with Patient Total time spent providing and/or coordinating discharge services: Less than 30 minutes - Quality: VTE Deep Vein Thrombosis/Pulmonary Embolism Present on Admission: No Exam Vital signs: Vital Signs 06/25/18 15:42 06/25/18 19:46 06/26/18 00:00 Temperature 98.3 F 100.0 F H 97.9 F Pulse Rate 109 H 109 H 92 H Respiratory Rate 20 18 16 Blood Pressure 170/78 H 182/84 H 135/72 Pulse Oximetry 92 L 94 L 95 06/26/18 03:46 06/26/18 08:00 06/26/18 12:00 Temperature 98.4 F 97.9 F 98.3 F Pulse Rate 101 H 95 H 71 Respiratory Rate 16 20 16 Blood Pressure 180/80 H 164/79 H 138/66 Pulse Oximetry 95 94 L 91 L Intake & Output 06/25/18 06/26/18 06/26/18 18:59 06:59 18:59 Intake Total 200 / 200 Output Total 150 / 150 Balance 200 / 200 -150 / -150 Intake: Anesthesia Amount 200 / 200 Output: Urine 150 / 150 Other: Date of Last Bowel Movement 06/25/18 Narrative: GENERAL: Well-nourished, well-developed adult male in no obvious distress. SKIN: Warm and dry. HEAD: Atraumatic. Normocephalic. CARDIOVASCULAR: Regular rate and rhythm. RESPIRATORY: No accessory muscle use. Clear to auscultation. Breath sounds equal bilaterally. GASTROINTESTINAL: Abdomen soft, non- tender, non-distended. Positive bowel sounds. MUSCULOSKELETAL: Extremities without clubbing, cyanosis, or edema. No obvious deformities. NEUROLOGICAL: Awake and alert. No obvious cranial nerve deficits. Motor grossly within normal limits. Normal speech. PSYCHIATRIC: Depressed Results Procedures completed during hospitalization: EGD 06/25/18 - IMPRESSIONS: 1. The esophagus appeared normal 2. There was acute gastritis at the angularis, in the gastric antrum, and gastric body 3. Large ulcer was found in the gastric antrum; biopsies were taken 4. Duodenal inflammation was found in the bulb and second portion of the duodenum 5. Retroflexion was performed and was normal Pending studies at discharge: Pending at discharge 06/25/18 17:00 Surgical [PTH] Routine Labs on day of discharge: Labs from last 24 hours 06/24/18 06/24/18 09:48 09:48 [id number] 234 H COLLEEN Screen Neg Anti-Smooth Muscle Ab Negative - Impressions ITS Impressions Abdomen/Pelvis CT 06/23/18 13:21 CONCLUSION: 1. No evidence of acute process. 2. No evidence of suspicious mass or lymphadenopathy. 3. Prostate calcification. Discharge Plan - Discharge Disposition Patient Disposition: 01 Discharge Home - Discharge Condition Condition: Stable - Discharge Order Discharge Orders: Discharge Order (Routine); Ordered 06/26/18 Ordered By: Keli Tellez - Physicians Team Primary Care Provider: Primary Care Adenike Barrios Attending Provider: Alexis Shepherd Other Providers: Jeniffer Gomez MD
[2018-06-26 16:16] VITALS: BP 141/68; PULSE 98; TEMP 98; O2SAT 92
[2018-06-26 17:52] LABS: Ceruloplasmin 36 mg/dL (18-36)
[2018-06-26] MEDS: Enoxaparin Inj 40 MG/0.4 ML Syringe SQ SCH (17:54)
== END 2018-06-26 19:03 | disposition home or self-care (01) ==
LOC: NEPD 12:15 → NEDA 12:15 → NEPFCDU 16:50
PROVIDERS: ADMIT Hospitalist; ATTEND Hospitalist
PROC: PANENDO (2018-06-25 14:36)